=== PATIENT | male | born 1950 | race Caucasian/White ===

== ENCOUNTER 2023-04-02 05:54 | Emergency (ER) | payer MEDICARE, SELFPAY ==
[2023-04-02 06:01] VITALS: BP 171/87; PULSE 97; RESP 22; TEMP 37.2; O2SAT 95; BMI 29.4
--- NOTE | 2023-04-02 06:24 | PC.NURSE ---
pt complains of fever, headache and bodyaches that started a few days ago. states he tried tylenol last night but doesnt know if it helped because he went to sleep. woke up this morning and temp was 101 at home
--- NOTE | 2023-04-02 06:25 | ED_ITS ---
HPI - General Adult General Chief complaint: Fever Stated complaint: HEADACHE, FEVER- HOT Time Seen by Provider: 04/02/23 06:14 History of Present Illness HPI narrative: patient states he felt ill last night. Headache at that time. Took tylenol for the HUTTON but not sure if it help because he fell asleep. This AM has body aches, sore neck, mild -mod headache. Decided to come in because he developed a fever. No cough or shortness of breath. No associated nausea or neck stiffness. Did not take any medication since last PM Related Data Home Medications Medication Instructions Recorded Confirmed aspirin 81 mg chewable tablet 81 mg PO DAILY 04/02/23 04/02/23 (Aspirin Childrens) atorvastatin 20 mg tablet 20 mg PO DAILY 04/02/23 04/02/23 doxazosin 2 mg tablet (Cardura) 2 mg PO DAILY 04/02/23 04/02/23 duloxetine 30 mg capsule,delayed 30 mg PO DAILY 04/02/23 04/02/23 release hydrochlorothiazide 12.5 mg tablet 12.5 mg PO DAILY 04/02/23 04/02/23 losartan 50 mg tablet 50 mg PO BID 04/02/23 04/02/23 metoprolol succinate 50 mg 50 mg PO DAILY 04/02/23 04/02/23 tablet,extended release 24 hr montelukast 10 mg tablet 10 mg PO DAILY 04/02/23 04/02/23 Allergies Allergy/AdvReac Type Severity Reaction Status Date / Time No Known Drug Allergies Allergy Verified 04/02/23 06:05 Review of Systems ROS Status of ROS 10 or more systems reviewed and unremarkable except as noted in history and below Constitutional Reports: fever PFSH PFSH Social History Smoking status: Former smoker Exam Constitutional Vital Signs - 24 hr 04/02/23 06:01 Temperature 99.0 F Pulse Rate [Monitor] 97 H Respiratory Rate 22 Blood Pressure [Right Arm] 171/87 H Pulse Oximetry 95 Common normals: no apparent distress, average body habitus, oriented x3, no limitations, healthy appearing and well nourished [facility] Common normals: normocephalic, head/scalp atraumatic and hearing grossly normal bilaterally Eye Common normals: PERRL, EOMs intact bilaterally and conjunctivae normal Respiratory Common normals: normal respiratory effort, no retractions, no use of accessory muscles and clear to auscultation bilaterally Cardio Common normals: no JVD, regular rate, regular rhythm, S1 normal heart sound and S2 normal heart sound GI Common normals: Normal to inspection, nondistended, normoactive bowel sounds present, soft to palpation and non-tender Extremity Common normals: normal to inspection and full ROM Neuro Common normals: oriented x3, CN's II-XII intact bilaterally, moves all extremities, no focal motor deficits and no sensory deficits noted Psych Common normals: mental status grossly normal Course Vital Signs Vital signs: Vital Signs Temperature 99.0 F 04/02/23 06:01 Pulse Rate 97 H 04/02/23 06:01 Respiratory Rate 22 04/02/23 06:01 Blood Pressure 171/87 H 04/02/23 06:01 Pulse Oximetry 95 04/02/23 06:01 Temperature 99.0 F 04/02/23 06:01 Pulse Rate 97 H 04/02/23 06:01 Respiratory Rate 22 04/02/23 06:01 Blood Pressure 171/87 H 04/02/23 06:01 Pulse Oximetry 95 04/02/23 06:01 Medical Decision Making MDM Narrative Medical decision making narrative: patient presents with URI symptoms. Clinically appears to have a viral infection. Workup initiated including Respiratory panel and diagnostic studies. Care transferred to Dr Griggs at change of shift Discharge Plan Discharge Chief Complaint: Fever Prescriptions / Home Meds: No Action losartan 50 mg tablet 50 mg PO BID atorvastatin 20 mg tablet 20 mg PO DAILY metoprolol succinate 50 mg tablet extended release 24 hr 50 mg PO DAILY montelukast 10 mg tablet 10 mg PO DAILY duloxetine 30 mg capsule,delayed release(DR/EC) 30 mg PO DAILY hydrochlorothiazide 12.5 mg tablet 12.5 mg PO DAILY doxazosin [Cardura] 2 mg tablet 2 mg PO DAILY aspirin [Aspirin Childrens] 81 mg tablet,chewable 81 mg PO DAILY Referrals: Physician,Non-Staff, MD [Primary Care Provider] - 1 week
--- NOTE | 2023-04-02 06:30 | CT_ITS ---
The [address] [address] Patient Name: ANGELIC RAMSEY MRN: [id number] date: 1950 Sex: M Assigned Patient Location: ED.MAIN Current Patient Location: ED.MAIN Accession/Order Number: [id number] Exam Date: 04/02/2023 06:40 Report Date: 04/02/2023 07:15 At the request of: ROBERTO CARVER Procedure: CT facial bones wo con EXAMINATION: CT facial bones wo con HISTORY: headache , sore neck, body aches COMPARISON: No relevant comparison available. TECHNIQUE: Axial, Coronal, and Sagittal CT images created without IV contrast. Dose reduction techniques were achieved by using automated exposure control and/or adjustment of mA and/or kV according to patient size and/or use of iterative reconstruction technique. FINDINGS: FACIAL BONES: No bony lesion or fracture. SINUSES: Mild mucosal thickening throughout majority of the paranasal sinuses. Obstruction of the left ostiomeatal complex. Mucocele/retention cysts within base of right maxillary sinus. No fluid levels to suggest acute sinusitis. NASAL FOSSA: No mass, fracture, or significant septal deviation. SKULL BASE: No mass or bone destruction. ORBITS: No visible mass, hematoma, edema or fracture. SALIVARY GLANDS: No mass. Unremarkable parotid and submandibular glands. OTHER: No lymphadenopathy. Unremarkable nasopharynx, oropharynx, and oral cavity. IMPRESSION: 1. Moderate chronic sinusitis. 2. No acute or specific findings to account for patient's symptoms. Electronically authenticated by: ARI WANG Date: 04/02/2023 07:15
--- NOTE | 2023-04-02 06:30 | XR_ITS ---
The [address] [address] Patient Name: ANGELIC RAMSEY MRN: [id number] date: 1950 Sex: M Assigned Patient Location: ED.MAIN Current Patient Location: ED.MAIN Accession/Order Number: [id number] Exam Date: 04/02/2023 06:40 Report Date: 04/02/2023 07:02 At the request of: ROBERTO CARVER Procedure: XR chest 1V EXAMINATION: XR chest 1V HISTORY: fever , body aches, headache, sore neck COMPARISON: XR chest 10/27/2022 FINDINGS: LUNGS: Underexpanded lungs with mild stranding opacities within lung bases. VASCULATURE: No increased pulmonary vasculature. PLEURA: No pneumothorax, effusion, or pleural thickening. CARDIAC: No cardiomegaly or cardiac silhouette abnormality. MEDIASTINUM: No visible mass or adenopathy. BONES: No fracture or visible bone lesion. OTHER: Negative. IMPRESSION: 1. Low lung volume examination with new mild bibasilar infiltrates or atelectasis. Electronically authenticated by: ARI WANG Date: 04/02/2023 07:02
[2023-04-02 06:54] LABS: Adenovirus NOT DETECTED (NOT DETECTE); Bordetella parapertussis NOT DETECTED (NOT DETECTE); Coronavirus 229E NOT DETECTED (NOT DETECTE); Coronavirus HKU1 NOT DETECTED (NOT DETECTE); Coronavirus NL63 NOT DETECTED (NOT DETECTE); Coronavirus OC43 NOT DETECTED (NOT DETECTE); Human Metapneumovirus NOT DETECTED (NOT DETECTE); Human Rhinovirus/Enterovirus NOT DETECTED (NOT DETECTE); Influenza A NOT DETECTED (NOT DETECTE); Influenza B NOT DETECTED (NOT DETECTE); Mycoplasma pneumoniae NOT DETECTED (NOT DETECTE); Parainfluenza Virus 1 NOT DETECTED (NOT DETECTE); Parainfluenza Virus 2 NOT DETECTED (NOT DETECTE); Parainfluenza Virus 3 NOT DETECTED (NOT DETECTE); Parainfluenza Virus 4 NOT DETECTED (NOT DETECTE); Respiratory Syncytial Virus NOT DETECTED (NOT DETECTE)
[2023-04-02 07:11] LABS: Basophils Percent Auto 0.5 % (0.2-2.0); Eosinophils Absolute Auto 0.1 10^3/uL (0.0-0.7); Eosinophils Percent Auto 0.8 % (0.9-7.0); Hematocrit 41.6 % (42.0-54.0); Immature Granulocytes Abs Auto 0.02 10^3/uL (0.00-0.03); Immature Granulocytes Pct Auto 0.3 % (0.0-0.5); Lymphocytes Absolute Auto 0.9 10^3/uL (1.2-3.8); Lymphocytes Percent Auto 11.5 % (20.5-60.0); Mean Corpuscular HGB Conc 33.7 g/dL (29.9-35.2); Mean Corpuscular Hemoglobin 30.4 pg (25.9-34.0); Mean Corpuscular Volume 90.2 fL (80.0-94.0); Mean Platelet Volume 10.4 fL (9.5-13.5); Monocytes Absolute Auto 0.9 10^3/uL (0.3-0.8); Monocytes Percent Auto 12.1 % (1.7-12.0); Neutrophils Absolute Auto 5.6 10^3/uL (1.4-6.5); Neutrophils Percent Auto 74.8 % (43.0-75.0); Platelet Count 222 10^3/uL (150-450); Red Blood Count 4.61 10^6/uL (4.70-6.10); Red Cell Distribution Width 13.4 % (11.0-15.0); White Blood Count 7.5 10^3/uL (4.0-11.0)
[2023-04-02 07:21] LABS: Alanine Aminotransferase 27 U/L (16-63); Albumin Globulin Ratio 1.1; Albumin Level 3.8 g/dL (3.4-5.0); Alkaline Phosphatase 84 U/L (46-116); Anion Gap 12.2; Aspartate Amino Transferase 20 U/L (15-37); BUN Creatinine Ratio 14.6; Bilirubin Total 0.6 mg/dL (0.2-1.0); Calcium 9.1 mg/dL (8.5-10.1); Carbon Dioxide 28.5 mmol/L (21.0-32.0); Chloride 98 mmol/L (98-107); Estimated GFR (African America >60 (>=60); Estimated GFR (Non-African Ame >60 (>=60); Globulin 3.6 g/dL; Glucose 116 mg/dL (74-106); Potassium 3.7 mmol/L (3.5-5.1); Sodium 135 mmol/L (136-145); Total Protein 7.4 g/dL (6.4-8.2)
[2023-04-02 07:51] LABS: Bilirubin Urine NEGATIVE (NEGATIVE); Blood Urine NEGATIVE (NEGATIVE); Clarity Urine CLEAR (CLEAR); Color Urine LT. YELLOW (YELLOW); Glucose Urine UA NEGATIVE (NEGATIVE); Ketones Urine NEGATIVE (NEGATIVE); Leukocyte Esterase Urine NEGATIVE (NEGATIVE); Nitrite Urine NEGATIVE (NEGATIVE); Protein Urine NEGATIVE (NEG/TRACE); Urobilinogen Urine 0.2 EU/dL (0.2-1.0)
[2023-04-02 07:54] LABS: Urine Microscopic Indicated NO
--- NOTE | 2023-04-02 07:57 | ED.GENADUL1 ---
HPI - General Adult General Chief complaint: Fever Stated complaint: HEADACHE, FEVER- HOT Time Seen by Provider: 04/02/23 06:14 Related Data Home Medications Medication Instructions Recorded Confirmed aspirin 81 mg chewable tablet 81 mg PO DAILY 04/02/23 04/02/23 (Aspirin Childrens) atorvastatin 20 mg tablet 20 mg PO DAILY 04/02/23 04/02/23 doxazosin 2 mg tablet (Cardura) 2 mg PO DAILY 04/02/23 04/02/23 duloxetine 30 mg capsule,delayed 30 mg PO DAILY 04/02/23 04/02/23 release hydrochlorothiazide 12.5 mg tablet 12.5 mg PO DAILY 04/02/23 04/02/23 losartan 50 mg tablet 50 mg PO BID 04/02/23 04/02/23 metoprolol succinate 50 mg 50 mg PO DAILY 04/02/23 04/02/23 tablet,extended release 24 hr montelukast 10 mg tablet 10 mg PO DAILY 04/02/23 04/02/23 Previous Rx's Medication Instructions Recorded ondansetron 4 mg disintegrating 4 mg PO Q4H PRN Nausea And 04/02/23 tablet Vomiting 48 hours #12 tabs Allergies Allergy/AdvReac Type Severity Reaction Status Date / Time No Known Drug Allergies Allergy Verified 04/02/23 06:05 [facility] Social History Smoking status: Former smoker Exam Constitutional Vital Signs - 24 hr 04/02/23 06:01 04/02/23 08:09 Temperature 99.0 F 100.8 F H Pulse Rate [Monitor] 97 H 89 Respiratory Rate 22 20 Blood Pressure [Right Arm] 171/87 H 159/83 H Pulse Oximetry 95 96 Oxygen Delivery Method Room Air Course Vital Signs Vital signs: Vital Signs Temperature 99.0 F 04/02/23 06:01 Pulse Rate 97 H 04/02/23 06:01 Respiratory Rate 22 04/02/23 06:01 Blood Pressure 171/87 H 04/02/23 06:01 Pulse Oximetry 95 04/02/23 06:01 Temperature 100.8 F H 04/02/23 08:09 Pulse Rate 89 04/02/23 08:09 Respiratory Rate 20 04/02/23 08:09 Blood Pressure 159/83 H 04/02/23 08:09 Pulse Oximetry 96 04/02/23 08:09 Oxygen Delivery Method Room Air 04/02/23 08:09 Medical Decision Making Medical Records Medical records narrative: CT shows moderate chronic sinusitis, no acute or specific findings to account for patient's symptoms. Patient chest x-ray shows no acute cardiopulmonary disease, no infiltrate, no effusion. If the CT report was given to the patient. Patient was initially seen and evaluated by Dr. Schmitz. Patient history, physical, and initial orders and tests were ordered and documented by Dr. Schmitz. I was to follow-up with results of patient's CT of the sinuses, chest x-ray, and this for the patient. Patient respiratory panel is positive for COVID. Education on treatment of [id number] medication was discussed with patient at bedside and on discharge paper. Patient will follow-up with PCP next week if needed. Patient is not hypoxic, patient looks well. Patient did have a fever, he was given Tylenol. no questions at discharge. Please see Dr. Schmitz's previous to presentation on HPI, review of systems and physical exam. Patient looks well at discharge. No respiratory distress, no nausea or vomiting, no headache, just sinus congestion. Lab Data Lab results reviewed: Yes I reviewed the patient's lab results Labs: Lab Results 04/02/23 04/02/23 Range/Units 06:39 06:51 WBC 7.5 (4.0-11.0) 10^3/uL RBC 4.61 L (4.70-6.10) 10^6/uL Hgb 14.0 (14.0-18.0) g/dL Hct 41.6 L (42.0-54.0) % MCV 90.2 (80.0-94.0) fL MCH 30.4 (25.9-34.0) pg MCHC 33.7 (29.9-35.2) g/dL RDW 13.4 (11.0-15.0) % Plt Count 222 (150-450) 10^3/uL MPV 10.4 (9.5-13.5) fL Neut % (Auto) 74.8 (43.0-75.0) % Lymph % (Auto) 11.5 L (20.5-60.0) % [place] % (Auto) 12.1 H (1.7-12.0) % Eos % (Auto) 0.8 L (0.9-7.0) % Baso % (Auto) 0.5 (0.2-2.0) % Neut # (Auto) 5.6 (1.4-6.5) 10^3/uL Lymph # (Auto) 0.9 L (1.2-3.8) 10^3/uL [place] # (Auto) 0.9 H (0.3-0.8) 10^3/uL Eos # (Auto) 0.1 (0.0-0.7) 10^3/uL Baso # (Auto) 0.0 (0.0-0.1) 10^3/uL Abs Immat Gran (auto) 0.02 (0.00-0.03) 10^3/uL Imm/Tot Granulo (auto) 0.3 (0.0-0.5) % Sodium 135 L (136-145) mmol/L Potassium 3.7 (3.5-5.1) mmol/L Chloride 98 (98-107) mmol/L Carbon Dioxide 28.5 (21.0-32.0) mmol/L Anion Gap 12.2 BUN 13.0 (7.0-18.0) mg/dL Creatinine 0.89 (0.70-1.30) mg/dL Est GFR ( Amer) >60 (>=60) Est GFR (Non-Af Amer) >60 (>=60) BUN/Creatinine Ratio 14.6 Glucose 116 H (74-106) mg/dL Calcium 9.1 (8.5-10.1) mg/dL Total Bilirubin 0.6 (0.2-1.0) mg/dL AST 20 (15-37) U/L ALT 27 (16-63) U/L Alkaline Phosphatase 84 (46-116) U/L Total Protein 7.4 (6.4-8.2) g/dL Albumin 3.8 (3.4-5.0) g/dL Globulin 3.6 g/dL Albumin/Globulin Ratio 1.1 Urine Color Lt. yellow (YELLOW) Urine Clarity Clear (CLEAR) Urine pH 7.0 (5.0-9.0) Ur Specific [place] 1.020 (1.005-1.025) Urine Protein Negative (NEG/TRACE) mg/dL Urine Glucose (UA) Negative (NEGATIVE) mg/dL Urine Ketones Negative (NEGATIVE) mg/dL Urine Occult Blood Negative (NEGATIVE) Urine Nitrite Negative (NEGATIVE) Urine Bilirubin Negative (NEGATIVE) Urine Urobilinogen 0.2 (0.2-1.0) EU/dL Ur Leukocyte Esterase Negative (NEGATIVE) Adenovirus (PCR) Not detected (NOT DETECTE) C. pneumoniae DNA (PCR) Not detected (NOT DETECTE) Coronavirus Type OC43 Not detected (NOT DETECTE) Coronavirus Type HKU1 Not detected (NOT DETECTE) Coronavirus Type 229E Not detected (NOT DETECTE) Coronavirus Type NL63 Not detected (NOT DETECTE) Human Metapneumovir PCR Not detected (NOT DETECTE) M. pneumoniae (PCR) Not detected (NOT DETECTE) Parainfluenza PCR Not detected (NOT DETECTE) Parainfluenza 2 (PCR) Not detected (NOT DETECTE) Parainfluenza 3 (PCR) Not detected (NOT DETECTE) Parainfluenza 4 (PCR) Not detected (NOT DETECTE) RSV (RT-PCR) Not detected (NOT DETECTE) Entero/Rhino (PCR) Not detected (NOT DETECTE) SARS-CoV-2 (PCR) Detected A (NOT DETECTE) Bordetella pertussis (PCR) Not detected (NOT DETECTE) B parapertussis DNA PCR Not detected (NOT DETECTE) Influenza Type A (PCR) Not detected (NOT DETECTE) Influenza Type B (PCR) Not detected (NOT DETECTE) Discharge Plan Discharge Chief Complaint: Fever Clinical Impression: COVID-19, Sinusitis Patient Disposition: Home, Self-Care Time of Disposition Decision: 08:57 Prescriptions / Home Meds: New ondansetron 4 mg tablet,disintegrating 4 mg PO Q4H PRN (Reason: Nausea And Vomiting) 2 Days Qty: 12 0RF No Action losartan 50 mg tablet 50 mg PO BID atorvastatin 20 mg tablet 20 mg PO DAILY metoprolol succinate 50 mg tablet extended release 24 hr 50 mg PO DAILY montelukast 10 mg tablet 10 mg PO DAILY duloxetine 30 mg capsule,delayed release(DR/EC) 30 mg PO DAILY hydrochlorothiazide 12.5 mg tablet 12.5 mg PO DAILY doxazosin [Cardura] 2 mg tablet 2 mg PO DAILY aspirin [Aspirin Childrens] 81 mg tablet,chewable 81 mg PO DAILY Instructions: Sinusitis (ED), COVID-19 (Coronavirus Disease 2019) (ED), Face Coverings (Masks) and COVID-19 (ED), Social Distancing Guidelines for COVID-19 (ED) Additional Instructions: You may use multiple lbvq-out-[id number] medications to help treat her symptoms, including DayQuil, NyQuil, Flonase, and Mucinex as needed. YOU may also use Tylenol and Motrin, alternating every four hours to help with body aches or pains if they exist. Use Zofran ODT 4 mg tablets to help increase fluid intake. Follow-up with your PCP if no improvement or other questions in 3-5 days. Return to the Emergency Room significant shortness of breath or any other acute concerns Stand Alone Forms: Portal Instructions Referrals: Physician,Non-Staff, MD [Primary Care Provider] - 1 week
[2023-04-02 08:09] VITALS: BP 159/83; PULSE 89; RESP 20; TEMP 38.2; O2SAT 96
[2023-04-02 08:41] LABS: SARS-CoV-2 DETECTED (NOT DETECTE)
[2023-04-02] MEDS: ACETAMINOPHEN 500 MG TABLET PO (08:53)
== END 2023-04-02 09:15 | disposition home or self-care (01) ==
PROVIDERS: Internal Medicine; Emergency Provider Emergency Medicine
DX: U07.1 COVID-19 (principal); J32.9 Chronic sinusitis, unspecified; Z87.891 Personal history of nicotine dependence; Z79.82 Long term (current) use of aspirin; Z79.899 Other long term (current) drug therapy
CPT/HCPCS: 0202U; 36415; 70486; 71045; 80053; 81003; 85025; 99285

== ENCOUNTER 2023-09-28 13:07 | Outpatient (OUT) | payer MEDICARE, SELFPAY ==
--- NOTE | 2023-09-28 13:27 | XR_ITS ---
The [address] [address] Patient Name: ANGELIC RAMSEY MRN: [id number] date: 1950 Sex: M Assigned Patient Location: [facility] Current Patient Location: Accession/Order Number: [id number] Exam Date: 09/28/2023 13:23 Report Date: 09/29/2023 01:40 At the request of: LUCIUS ZHENG Procedure: XR abdomen 1V EXAMINATION: XR abdomen 1V HISTORY: Kidney Stone N20.0 COMPARISON: XR KUB 07/28/2022 FINDINGS: KIDNEY/URETER - RIGHT: No visible renal or ureteral calcifications. KIDNEY/URETER - LEFT: 6 mm stone projecting over mid body of kidney similar to prior study. PELVIS: No visible ureteral calcifications. Any visible calcifications favor phleboliths. BOWEL: No abnormal dilation or deviation. BONES: No acute abnormality. OTHER: 10 x 5 mm oval, irregular metallic foreign body projecting between the spine and left kidney. XR/XR abdomen 1V IMPRESSION: 1. Grossly stable left nephrolithiasis. 2. New metallic foreign body projecting over left upper quadrant of uncertain etiology. Electronically authenticated by: ARI WANG Date: 09/29/2023 01:40
== END 2023-09-28 13:08 | disposition home or self-care (01) ==
LOC: RAD 13:08
PROVIDERS: Visit Provider Urology
DX: N20.0 Calculus of kidney (principal)
CPT/HCPCS: 74018

== ENCOUNTER 2024-09-25 12:03 | Outpatient (OUT) | payer MEDICARE, SELFPAY ==
--- NOTE | 2024-09-25 12:18 | XR_ITS ---
The [address] [address] Patient Name: ANGELIC RAMSEY MRN: [id number] date: 1950 Sex: M Assigned Patient Location: [facility] Current Patient Location: Accession/Order Number: [id number] Exam Date: 09/25/2024 12:22 Report Date: 09/26/2024 06:52 At the request of: LUCIUS ZHENG Procedure: XR abdomen 1V EXAMINATION: XR abdomen 1V HISTORY: Kidney stones COMPARISON: XR abdomen 09/28/2023 FINDINGS: KIDNEY/URETER - RIGHT: Tiny calcification projecting over inferior pole of right kidney. KIDNEY/URETER - LEFT: Stable small calcification projecting over left kidney. PELVIS: Stable left pelvic calcification favoring a phlebolith. BOWEL: No abnormal dilation or deviation. BONES: No acute abnormality. OTHER: Negative. No abnormal gaseous collections. XR/XR abdomen 1V IMPRESSION: 1. Grossly stable bilateral nephrolithiasis. Electronically authenticated by: ARI WANG Date: 09/26/2024 06:52
== END 2024-09-25 12:04 | disposition home or self-care (01) ==
LOC: LAB 12:05 → RAD 12:10
PROVIDERS: PCP Nurse Practitioner Family; Visit Provider Urology
DX: N20.0 Calculus of kidney (principal)
CPT/HCPCS: 74018

== ENCOUNTER 2025-09-18 12:15 | Outpatient (OUT) | payer MEDICARE, SELFPAY ==
--- OUTSIDE RECORDS SUMMARY | 2025-09-18 12:20 | XMS_ITS | CCD ---
Author Organization [facility] Care Team Providers Care Jute Bag Clipper Name Role Phone DAINA MANLEY G Primary Care Physician Unavailab le SINDHU, DAINA Primary Care Unavailable VIGESAA, HEATH Lantigua Referring Unavailable SINDHU, DAINA Primary Care Unavailable VIGESAA, HEATH Lantigua Referring Unavailable SINDHU, DAINA Primary Care Unavailable VIGESAA, HEATH Lantigua Referring Unavailable SINDHU, DAINA Primary Care Unavailable VIGESAA, HEATH Lantigua Referring Unavailable Sindhu DO, Daina Primary Care Provider OVI, DR TOBIAS Attending Unavailable TIMMIS, DR TOBIAS Consulting Unavailable TIMMIS, DR TOBIAS Admitting Unavailable JOYCE, DR LEYVA Primary Care Unavailable TIMMIS, DR TOBIAS Admitting Unavailable TIMMIS, DR TOBIAS Attending Unavailable TIMMIS, DR TOBIAS Consulting Unavailable JOYCE, DR LEYVA Primary Care Unavailable NORM, DR LUCIUS Moya Admitting Unavailable JOYCE, DR LEYVA Primary Care Unavailable NORM, DR LUCIUS Moya Attending Unavailable NORM, DR LUCIUS Moya Consulting Unavailable ZIEBBHASKAR, DR ARI Escalona Consulting Unavailable Trinh Hernandez Unavailable Pito Riley Unavailable Unavailable Sindhu DO, Daina G Primary Care Provider BALTAZAR SOOD Attending Unavailable Unavailable Primary Care Provider UnavailPito Santillan Unavailable Unavailable Dalia Morales MD Primary Care Provider Judith Massey NP Unavailable DAYSI MAY Admitting Unavailable DAYSI MAY Attending Unavailable JUDITH MASSEY Primary Care Unavailab le Sindhu DO, Daina G Unavailable Lucius CA Attending Unavailable SINDHU, DAINA Primary Care Unavailable SINDHU, DAINA Primary Care Unavailable Lucius CA Attending Unavailable SINDHU, DAINA Primary Care Unavailable Lucius CA Attending Unavailable Massey CLINICAL TRIALS MANAGER-JESUS, Judith Jarquin Primary Care Pro vider SindhuDaina johnson DO Unavailable STELLA LANE Attending Unavailable HACKENDAMON, NANCY Jarquin Attending Unavailab le KAMPFER, STELLA Attending Unavailable RUSHER, ARI Jarquin Attending Unavailable KAMPFER, STELLA Attending Unavailable MASSEY, JUDITH Jarquin Attending Unavailab le HACKENBURG, NANCY Jarquin Attending Unavailab le MASSEY, JUDITH Jarquin Attending Unavailab le MASSEY, JUDITH Jarquin Referring Unavailab le RUSHER, ARI Jarquin Attending Unavailable SWINEHART, NATHALIE Attending Unavailable RUSHER, ARI Jarquin Attending Unavailable RUSHER, ARI Jarquin Attending Unavailable Daina Manley DO Primary Care Provider [phone] JUDITH MASSEY Primary Care Unavailab GARTH Thomas Attending Unavailable MASSEY, JUDITH Jarquin Referring Unavailab le MASSEY, JUDITH Jarquin Primary Care Unavailab le WALDEMAREDILIAED Referring Unavailable MASSEY, JUDITH Jarquin Primary Care Unavailab le WALDEMAR, PIPER Referring Unavailable MASSEY, JUDITH Jarquin Primary Care Unavailab le DANIEL RIZZO Attending Unavailable MASSEY, JUDITH Jarquin Referring Unavailab le MASSEY, JUDITH Jarquin Primary Care Unavailab le Medications Current Medications MedicationDrug Class(es)DatesSig (Normalized)Sig (Original)[id number] 200 actuat albuterol 0.09 mg/actuat metered dose inhaler (4 sources)beta2-Adrenergic AgonistStart: 08-18-2025 End: 46-27-7070hzvk 2 puff(s) by inhalation every four hours for wheezing albuterol HFA (Ventolin HFA) 90 mcg/act inhaler Indications: Lower resp. tract infection Inhale 2 puffs every 4 (four) hours if needed for wheezing or shortness of breath 8 g 5 08/18/2025 08/18/2026 Activeamoxicillin 875 mg / clavulanate 125 mg oral tablet (17 sources)Penicillin-class AntibacterialStart: 02-16-2025 End: 07-36-1410ysjo 1 tablet by mouth in the morningamoxicillin-clavulanate (Augmentin) 875-125 MG tablet Indications: Acute non-recurrent sinusitis, un specified location Take 1 tablet (875 mg) by mouth in the morning and 1 tablet (875 mg) before bedtime. Do all this for 7 days. 14 tablet 02/16/2025 02/23/2025 ActiveStart: 12-05-2024 End: 28-32-5778mlbh 1 tablet by mouth in the morningamoxicillin-clavulanate (Augmentin) 875-125 MG tablet Indications: Acute non-recurrent maxillary sin usitis Take 1 tablet (875 mg) by mouth in the morning and 1 tablet (875 mg) before bedtime. Do all this for 7 days. 14 tablet 12/05/2024 12/12/2024 Active Start: 08-23-2024 End: 05-00-7420rwmh 1 tablet by mouth in the morningamoxicillin-clavulanate (Augmentin) 500-125 MG tablet Indications: Acute non-recurrent pansinusitisTake 1 tablet (500 mg) by mouth in the morning and 1 tablet (500 mg) before bedtime. Do all this for 7 days. 14 tablet 08/23/2024 08/30/2024 ActiveStart: 10-05-2023 amoxicillin-clavulanate 875 mg-125 mg Tab Refill(s) 0 Start Date: 10/05/23 Status: OrderedAmoxicillin-Pot Clavulanate 875-125 MG Oral for 7 Days Not-Taking Ascorbic Acid (20 sources)Vitamin CStart: 90-02-3577Wtfdwaa C 500 mg, Daily Start Date: 09/27/20 Status: Orderedtake 1 tablet by mouth in the morningascorbic acid (VITAMIN C) 500 mg tablet Take 1 tablet (500 mg total) by mouth in the morning. ActiveAscorbic Acid (vitamin C) 1000 MG tablet 1 (one) time each day at the same time. Activeascorbic acid (Vitamin C) 250 MG chewable tablet Chew 1 tablet (250 mg). 0 ActiveAspirin (20 sources)Platelet Aggregation Inhibitor, Nonsteroidal Anti-inflammatory Drug Start: 36-86-3785mcacthb 81 mg Start Date: 09/27/20 Status: Orderedtake 1 tablet by mouth in the morningaspirin 81 mg Take 1 tablet (81 mg total) by mouth in the morning. ActiveAspirin (ASPIR-LOW PO) Take by mouth. ActiveAspirin (ASPIR-LOW PO) Take by mouth. 0 Activeatorvastatin 20 mg oral tablet (20 sources)HMG-CoA Reductase InhibitorStart: 17-90-2935tdqd 1 tablet by mouth in the morningatorvastatin (Lipitor) 20 MG tablet Indications: Mixed hyperlipidemia Take 1 tablet (20 mg) by mouth in the morning. 90 tablet 3 04/16/2025 ActiveStart: 09-27-2020 End: 38-50-7345dmak 1 tablet by mouth once daily in the morningatorvastatin (Lipitor) 20 MG tablet Indications: Mixed hyperlipidemia take 1 tablet by mouth every morning 90 tablet 3 04/06/2024 Activeazithromycin 250 mg oral tablet (5 sources)Macrolide AntimicrobialStart: 08-18-2025 End: 11-01-4322sgby 2 tablets by mouth once daily, then take 1 tablet by mouth once dailyazithromycin (Zithromax) 250 MG tablet Indications: Lower resp. tract infection Take 2 tablets (500mg) by mouth Daily for 1 day, THEN 1 tablet (250 mg) Daily for 4 days. 6 tablet 08/18/2025 08/23/2025 ActiveAzithromycin 250 MG Oral for 5 Days Not-Takingcalcium carbonate 1250 mg / cholecalciferol 200 unt oral tablet (1 source)Vitamin Dtake 1 tablet by mouth once dailycalcium carbonate-vitamin D3 500 mg-5 mcg (200 unit) tablet Take 1 tablet by mouth once daily. 0 Active cetirizine hydrochloride 10 mg oral tablet (20 sources)Histamine-1 Receptor AntagonistStart: 09-22-2023 End: 91-09-2469rggkzhqene 10 mg Tab Refills(s) 0 Start Date: 10/05/23 Status: Orderedcholecalciferol 0.025 mg oral tablet (20 sources)Vitamin Dtake 1 tablet by mouth in the morningcholecalciferol 1,000 units tablet Take 1 tablet (1,000 Units total) by mouth in the morning. Active doxazosin 1 mg oral tablet (20 sources)alpha-Adrenergic BlockerStart: 05-24-2023 End: 60-88-5588twbn 1 tablet by mouth at bedtimedoxazosin (Cardura) 1 MG tablet Indications: Primary hypertension Take 1 tablet (1 mg) by mouth at bedtime 90 tablet 3 05/11/2025 05/11/2026 ActiveDoxazosin Mesylate 2 MG Oral for 30 Days ActiveDULoxetine 30 mg delayed release oral capsule (20 sources)Serotonin and Norepinephrine Reuptake InhibitorStart: 09-20-2023 End: 87-58-0478yeavcwnakj 30 mg oral delayed release capsule Refills(s) 0 Start Date: 10/05/23 Status: Orderedfluticasone propionate 0.05 mg/actuat metered dose nasal spray (20 sources)CorticosteroidStart: 24-80-8978hkhk 1 spray(s) nasal route once dailyfluticasone (Flonase) 50 MCG/ACT nasal spray Indications: Acute non- recurrent sinusitis, unspecified location Administer 1 spray into each nostril Daily 16 g 1 02/16/2025 Active End: 78-36-7869bbifdhmzpie (Flonase) 50 MCG/ACT nasal spray 1 (one) time each day at the same time. 02/16/2025 Discontinued (Reorder)hydroCHLOROthiazide 12.5 mg oral tablet (20 sources)Thiazide DiureticStart: 31-67-6499wbco 1 tablet by mouth in the morninghydroCHLOROthiazide (HYDRODiuril) 12.5 MG tablet Indications: Primary hypertension Take 1 tablet (12.5 mg) by mouth in the morning. 90 tablet 3 08/09/2025 ActiveStart: 08-10-2022 End: 64-57-9375vpme 1 tablet by mouth in the morninghydroCHLOROthiazide (HYDRODiuril) 12.5 MG tablet Indications: Primary hypertension Take 1 tablet (12 .5 mg) by mouth in the morning. 90 tablet 3 08/14/2024 ActivehydroCHLOROthiazide 25 mg / triamterene 37.5 mg oral tablet (1 source)Potassium-sparing Diuretic, Thiazide DiureticStart: 45-33-8512ovjw 1 tablet by mouth once dailyhydrochlorothiazide-triamterene 25 mg-37.5 mg Tab 1 tab(s), Oral, Daily Start Date: 09/27/20 Status:Orderedibuprofen 600 mg oral tablet (4 sources)Nonsteroidal Anti-inflammatory DrugStart: 14-15-5425uzfy 1 tablet by mouth every six hours for painibuprofen 600 mg tablet take 1 tablet by mouth every 6 hours for pain WITH TYLENOL 0 03/25/2023 Activeketoconazole 20 mg/ml medicated shampoo (2 sources)Azole AntifungalStart: 10-90-1544jmetpgnlkhvf (Nizoral) 2 % shampoo Indications: Seborrheic dermatitis Apply topically 2 (two) timesa week. 100 mL 3 07/15/2023 Activelosartan potassium 50 mg oral tablet (20 sources)Angiotensin 2 Receptor BlockerStart: 66-17-0575cjud 1 tablet by mouth once daily in the morninglosartan (Cozaar) 50 MG tablet Indications: Primary hypertension TAKE 1 TABLET BY MOUTH EVERY MORNING AND 1 TABLET AT BEDTIME 180 tablet 1 07/09/2025 ActiveStart: 27-23-4475pcsm 1 tablet by mouth once daily in the morning, then take 1 tablet by mouth once daily at bedtime losartan (Cozaar) 50 MG tablet Indications: Primary hypertension TAKE 1 TABLET BY MOUTH EVERY MORNING AND TAKE 1 TABLET BY MOUTH EVERY NIGHT AT BEDTIME 180 tablet 1 01/09/2025 ActiveStart: 10-05-2023 End: 60-84-5557lauk 1 tablet by mouth in the morninglosartan (Cozaar) 50 MG tablet Indications: Primary hypertension (CMS/HCC) Take 1 tablet (50 mg) bymouth in the morning and 1 tablet (50 mg) before bedtime. 180 tablet 1 06/16/2024 Activetake 1 tablet by mouth twice dailylosartan (Cozaar) 50 mg tablet Take 1 tablet (50 mg) by mouth 2 times a day. 0 Znwzcw40 hr metoprolol succinate 25 mg extended release oral tablet (20 sources)beta-Adrenergic BlockerStart: 62-16-9794cmct 1 tablet by mouth every other daymetoprolol succinate XL (Toprol-XL) 25 MG 24 hr tablet Indications: Primary hypertension TAKE 1 TABLET BY MOUTH EVERY OTHER DAY DO NOT CRUSH OR CHEW 45 tablet 1 06/04/2025 ActiveStart: 12-05-2024 End: 73-10-4500fxnu 1 tablet by mouth every other daymetoprolol succinate XL (Toprol-XL) 25 MG 24 hr tablet Indications: Primary hypertension Take 1 tablet (25 mg) by mouth every other day Do not crush or chew. 45 tablet 1 12/05/2024 ActiveStart: 05-15-2024 End: 26-15-3196scjj 1 tablet by mouth once dailymetoprolol succinate XL (Toprol- XL) 25 MG 24 hr tablet Indications: Primary hypertension (CMS/HCC) Take 1 tablet (25 mg) by mouth Daily Do not crush or chew. 90 tablet 05/15/2024 07/27/2024 DiscontinuedStart: 47-31-0913mhwe 1 tablet by mouth once dailymetoprolol 50 mg ER Tab 50 mg = 1 tab(s), Oral, Daily Start Date: 09/27/20 Status: Orderedtake 0.5 tablet by mouth every other daymetoprolol succinate XL (TOPROL-XL) 50 mg 24 hr tablet Take 0.5 tablets (25 mg total) by mouth every other day. Active End: 57-44-8898haixbtvoty tartrate (Lopressor) 25 MG tablet Take 12.5 mg by mouth every other day 12/05/2024 Discontinuedtake 1 tablet by mouth every twenty-four hours in the morningmetoprolol succinate XL (TOPROL-XL) 50 mg 24 hr tablet Take 1 tablet (50 mg total) by mouth in the morning. Activemontelukast 10 mg oral tablet (20 sources)Leukotriene Receptor AntagonistStart: 09-27-2020 End: 07-93-7706blzc 1 tablet by mouth at bedtimemontelukast (Singulair) 10 MG tablet Indications: Allergic conjunctivitis of both eyes and rhinitisTake 1 tablet (10 mg) by mouth at bedtime 90 tablet 1 05/04/2025 ActiveMulti Vitamins oral tablet (5 sources)Start: 38-66-8340Qzpps Vitamins oral tablet Oral, Daily Start Date: 09/27/20 Status: OrderedMultiple Vitamin (Multi Vitamin) tablet (20 sources)Multiple Vitamin (Multi Vitamin) tablet 1 (one) time each day at the same time. ActiveMultiple Vitamin (Multi Vitamin) tablet 1 (one) time each day at the same time. 0 ActiveMULTIVITAMIN ORAL (9 sources)take 1 tablet by mouth in the morningMULTIVITAMIN ORAL Take 1 tablet by mouth in the morning. Activeondansetron 4 mg disintegrating oral tablet (3 sources)Serotonin-3 Receptor AntagonistStart: 53-44-3275icobpdelwmu ODT (Zofran-ODT) 4 MG disintegrating tablet dissolve 1 tablet ON TONGUE every 4 hours if needed for nausea OR vomiting for up to 2 days 0 04/02/2023 Active predniSONE 20 mg oral tablet (4 sources)Start: 08-18-2025 End: 33-16-0472miwm 1 tablet by mouth once dailypredniSONE (Deltasone) 20 MG tablet Indications: Lower resp. tract infection Take 1 tablet (20 mg) by mouth Daily for 10 days 10 tablet 08/18/2025 08/28/2025 Activetamsulosin hydrochloride 0.4 mg oral capsule (20 sources)alpha-Adrenergic BlockerStart: 12-25-2022 End: 43-17-1810svwb 1 capsule by mouth once dailyFLOMAX 0.4 mg capsule Take 1 capsule (0.4 mg total) by mouth nightly. 10/13/2023 ActiveStart: 82-78-5291lqqu 1 capsule by mouth every twenty-four hours in the morningtamsulosin (Flomax) 0.4 MG 24 hr capsule Take 0.4 mg by mouth in the morning. 12/25/2022 ActiveStart: 78-78-6104zkay 1 capsule by mouth once dailytamsulosin 0.4 mg Cap 0.4 mg = 1 cap(s), Oral, Daily, # 30 cap(s), Refills(s) 11, Pharmacy: [address], 187, cm, 08/01/21 9:11:00 EDT, Height/Length Dosing, 95, kg, 08/01/21 9:11:00 EDT, Weight Dosing Start Date: 01/22/22 Status: OrderedTheraLith XR (1 source)Start: 04-18-6507PttxsUwyz XR Oral Start Date: 09/27/20 Status: Ordered 24 hr venlafaxine 37.5 mg extended release oral tablet (5 sources)Serotonin and Norepinephrine Reuptake InhibitorStart: 63-40-9730zctl 1 tablet by mouth every twenty-four hours in the morningvenlafaxine XR (Effexor XR) 37.5 MG 24 hr tablet Take 37.5 mg by mouth in the morning. Take with food.. 0 10/15/2022 ActiveStart: 77-15-0000qvjj 1 tablet by mouth every twenty-four hours in the morningvenlafaxine XR (Effexor XR) 150 MG 24 hr tablet Take 150 mg by mouth in the morning. Take with food.. 0 05/05/2022 ActiveStart: 09-27-2020 venlafaxine 225 mg, Oral Start Date: 09/27/20 Status: OrderedVitamin D3 (5 sources)Start: 49-92-8448Qwinyqb D3 1,000 International_Unit Start Date: 09/27/20 Status: Ordered Completed/Discontinued Medications MedicationDrug Class(es)DatesSig (Normalized)Sig (Original)ciprofloxacin 500 mg oral tablet (2 sources)Quinolone AntimicrobialStart: 28-18-3299Nynsc 500 mg Tab 500 mg = 1 tab(s), Oral, As Directed, Patient to take 1 tab the day before procedure and the 2nd tab the day of procedure once completed, # 2 tab(s), Refills(s) 0, Pharmacy: [facility] [id number], 187, cm, 10/03/24 9:26:00 EST, Height/Length Dosing, 116, kg, 10/03/24 9:26:00 EST, Weight Dosing Start Date: 10/03/24 Status: Ordered Problems Active Problems Problem ClassificationProblemDateDocumented DateEpisodic/ChronicAcute cerebrovascular disease (20 sources)Infarction of basal ganglia; Translations: [Other cerebral infarction due to occlusion or stenosis of small artery]Onset: 01-13-2024 90-29-7247YkjjxbwZrigzc; peripheral; and visceral artery aneurysms (3 sources)Aneurysm of ascending aorta; Translations: [Aneurysm of ascending aorta without rupture (CMS-HCC)]71-51-0178KhhzfujUsffszj tract disease (5 sources)Ucxdnsdyj70-60-2352LuzruurfGapfaaiei of lipid metabolism (20 sources)Mixed hyperlipidemia; Translations: [Mixed hyperlipidemia]Onset: 19-33-3238IddxqofPeoqiwsrpiuuqq and diverticulitis (20 sources)Diverticular disease; Translations: [Diverticulosis of intestine, part unspecified, without perforation or abscess without bleeding]Onset: 589116-28-5428PsowiovDorkmnjsa hypertension (20 sources)Hypertensive disorder; Translations: [Essential (primary) hypertension]Onset: 364096-41-0290DetkearYusco of unknown origin (2 sources)Fever; Translations: [Fever, unspecified]00-92-5486Xuvoqasu Hyperplasia of prostate (20 sources)Benign prostatic hypertrophy with outflow obstruction; Translations: [Benign prostatic hyperplasia with lower urinary tract symptoms]Onset: 79-38-9253SvxbbfhEwyohwpkiibl; infection of eye (except that caused by tuberculosis or sexually transmitteddisease) (1 source)Allergic conjunctivitis; Translations: [Acute atopic conjunctivitis, bilateral]07-79-2930OfddnsgiKkxg disorders (20 sources)Depressive disorder; Translations: [Major depression in partial remission]Onset: 957330-25-2640KvgrkenBtwiefv (5 sources)Onychomycosis due to dermatophyte ; Translations: [Tinea unguium] 50-69-1364DbcdfkqjIccvt acquired deformities (2 sources)Acquired deformity of nose; Translations: [Acquired deformity of nose]Onset: 52-41-1399IvckspykTblzj acquired deformities (2 sources)Incompetence of nasal valve; Translations: [Acquired deformity of nose]Onset: 154991-43-7207YcucmadvLbhey aftercare (1 source)terminal supervisor (current) use of aspirin; Translations: [LONGTERM CURRENT USE OF ASPIRIN]Onset: 82-80-2970WqpeisziVmfbh aftercare (2 sources)Removal of sutures done; Translations: [Encounter for removal of sutures]32-56-6501JlniozqsHyabi circulatory disease (20 sources)Disorder of aorta; Translations: [Other specified disorders of arteries and arterioles]Onset: 555824-46-0469PgwivrfClopc circulatory disease (1 source)Other specified disorders of arteries and arterioles; Translations: [Other specified disorders of arteries and arterioles]Onset: 92-35-4133Cifvydr Other connective tissue disease (1 source)Pain in hallux; Translations: [Pain in left toe(s)]32-73-0655Atkkbipc Other connective tissue disease (10 sources)Pain in toe; Translations: [Pain in right toe(s)]94-23-0278Ixzcsxun Other diseases of kidney and ureters (1 source)Urinary tract obstruction; Translations: [Other obstructive and reflux uropathy]Onset: 87-48-2902InpnwzypUcpcs ear and sense organ disorders (20 sources)Asymmetrical hearing loss; Translations: [Other specified hearing loss, bilateral]Onset: 186999-93-3034BpjhjbtZlkdi ear and sense organ disorders (20 sources)Chronic otitis externa; Translations: [Unspecified chronic otitis externa, unspecified ear]Onset: 138752-63-5244CdweyiaJdcuv ear and sense organ disorders (20 sources)Sensorineural hearing loss, bilateral; Translations: [Sensorineural hearing loss, bilateral]Onset: 962205-46-2156GiqdcezWghiw lower respiratory disease (2 sources)Other abnormalities of breathing; Translations: [Other abnormalities of breathing]Onset: 15-40-0867UomgotgbOdcrg lower respiratory disease (2 sources)Lower respiratory tract infection; Translations: [Unspecified acute lower respiratory infection]07-99-4794LsduqmtqIzqef nervous system disorders (20 sources)Difficulty walking; Translations: [Difficulty in walking, not elsewhere classified]Onset: 000565-78-2592SnpfdmaAptvz nervous system disorders (2 sources)Neuropathy of lower limb; Translations: [Unspecified mononeuropathy of bilateral lower limbs]Onset: 707949-04-9632VigibhqRhsby nervous system disorders (20 sources)Chronic pain; Translations: [Other chronic pain]Onset: 04-14-2023 83-43-5501YgwprxoRxzlt nervous system disorders (20 sources)Bilateral peripheral neuropathy of lower limbs; Translations: [Unspecified mononeuropathy of bilateral lower limbs]Onset: ChronicOther nutritional; endocrine; and metabolic disorders (20 sources)Obese class I; Translations: [Obesity, unspecified]Onset: 04-14-2023 51-06-0855IdhhujwBuvie skin disorders (1 source)Epidermal thickening, unspecified; Translations: [EPIDERMAL THICKENING UNSPECIFIED]Onset: 00-12-7220DozyjbsrRegur skin disorders (1 source)Ingrowing nail; Translations: [Ingrowing nail]10-66-3487FhwxodayTqlwf skin disorders (5 sources)Dystrophia unguium; Translations: [Nail dystrophy]44-97-0880Jaysbyvj Other upper respiratory disease (20 sources)Allergic rhinitis; Translations: [Allergic rhinitis, unspecified] Onset: 836784-18-8317KjlqglqDppjh upper respiratory disease (2 sources)Deviated nasal septum; Translations: [Deviated nasal septum]Onset: 51-30-7014MklcidtgWqdev upper respiratory disease (2 sources)Hypertrophy of nasal turbinates; Translations: [Hypertrophy of nasal turbinates]Onset: 86-27-6562CfccyqxzXjsur upper respiratory infections (20 sources)Chronic pansinusitis; Translations: [Chronic pansinusitis]Onset: 559283-62-4948UnzgigsZoihc upper respiratory infections (13 sources)Acute upper respiratory infection, unspecified; Translations: [Acute pansinusitis]EpisodicPeripheral and visceral atherosclerosis (20 sources)Disorder of capillaries; Translations: [Peripheral vascular disease, unspecified]Onset: 697761-50-4394MjhgcodWjidpiwz codes; unclassified (2 sources)Sleep apnea, unspecified; Translations: [Sleep apnea, unspecified] Onset: 25-36-1391NkixosvHdpykeaw codes; unclassified (3 sources)Sleep apnea; Translations: [Sleep apnea, unspecified]ChronicResidual codes; unclassified (1 source)Obstructive sleep apnea (adult) (pediatric); Translations: [OBSTRUCTIVE SLEEP APNEA]Onset: 67-41-2577HnwxcquDqpatzdn codes; unclassified (20 sources)Obstructive sleep apnea syndrome; Translations: [Obstructive sleep apnea (adult) (pediatric)]Onset: 968356-16-0401CdzrcbySsncgfag codes; unclassified (5 sources)Pipe -78-9171DfswzwezCdzmjxek codes; unclassified (2 sources)Family history of ischemic heart disease and other diseases of the circulatory system; Translations: [Family history of ischemic heart disease and other diseases of the circulatory system]Onset: 38-63-8502QsjlqjkhSgdwqaqv codes; unclassified (3 sources)Family history of coronary arteriosclerosis; Translations: [Family history of ischemic heart disease and other diseases of the circulatory system] EpisodicSkin and subcutaneous tissue infections (1 source)Paronychia of toe of left foot; Translations: [Cellulitis of left toe] 66-51-2620DrrvxxtaHchsrtkmlje; intervertebral disc disorders; other back problems (20 sources)Lumbosacral spondylosis without myelopathy; Translations: [Spondylosis without myelopathy or radiculopathy, lumbosacral region]Onset: 360328-39-8009VtcbiwgFsskaqzcp-paosbmv disorders (20 sources)Nicotine dependence, other tobacco product, uncomplicated; Translations: [Pipe smoker]Onset: 430641-10-2653DbqklrgIeptlscmpdph (5 sources)Long-term current use of irqeuho04-75-7273Nuquwdabbgzh (1 source)CONTACT W/AND (SUSP) EXPOS COVID-19; Translations: [CONTACT W/AND (SUSP) EXPOS COVID-19]Onset: 91-49-8618Ivcjwpylqcga (4 sources)Patient encounter bhqgid66-91-0744Ewwxhfrphjvu (1 source)abn stress testOnset: 30-18-3935Kuevdzowbhmc (1 source)Aneurysm of the ascending aorta, without rupture; Translations: [Aneurysm of the ascending aorta, without rupture]Onset: 11-20-2024 Past or Other Problems Problem ClassificationProblemDateDocumented DateEpisodic/ChronicAdjustment disorders (20 sources)Family tension; Translations: [Reaction to severe stress, unspecified]Onset: 03-18-2017 Resolved: 867174-22-1985RbhyndsAxwrpxqe of urinary tract (20 sources)Kidney stone; Translations: [Calculus of kidney]Onset: 08-13-2016 EpisodicConditions associated with dizziness or vertigo (20 sources)Lightheadedness; Translations: [Dizziness and giddiness]Onset: 008148-34-7752RcyoikriQzmmqctr mellitus without complication (20 sources)Prediabetes; Translations: [Prediabetes]Onset: EpisodicDiseases of mouth; excluding dental (20 sources)Other lesions of oral mucosa; Translations: [Bleeding from mouth] Onset: 92-61-4848KkarrycfDqldpxrbzqvab symptoms and ill-defined conditions (20 sources)Nocturia; Translations: [Nocturia]Onset: 78-23-6467UakcmszyHakw wounds of extremities (1 source)Laceration without foreign body of left hand, initial encounter; Translations: [Laceration without foreign body of left hand, initial encounter] Onset: 11-07-3689CfrltehkLvqbq and unspecified benign neoplasm (20 sources)History of adenomatous polyp of colon; Translations: [Personal history of colonic polyps]Onset: [id number] circulatory disease (20 sources)Orthostatic hypotension; Translations: [Orthostatic hypotension] Onset: 649362-53-7285VvhufbvbFqwes connective tissue disease (20 sources)Disorder of ankle; Translations: [Other symptoms and signs involving the musculoskeletal system]Onset: 717829-88-8690FuvrclhsEwgao connective tissue disease (20 sources)Pain in both feet; Translations: [Pain in right foot]Onset: 569847-62-8838MzpvpxwiClaft diseases of kidney and ureters (20 sources)Cyst of kidney; Translations: [Cyst of kidney, acquired]Onset: 610497-00-8436PiajsjweYmjhw injuries and conditions due to external causes (2 sources)Laceration - injuryOnset: 82-64-3579XzalvhvnKhsyz lower respiratory disease (20 sources)Difficulty breathing; Translations: [Other abnormalities of breathing]Onset: 665432-14-5547MhukvnuwRauek lower respiratory disease (20 sources)Nodule of lung; Translations: [Solitary pulmonary nodule]Onset: 742298-82-9885XiwjftseJyqjo nervous system disorders (20 sources)Abnormal gait; Translations: [Unspecified abnormalities of gait and mobility]Onset: 597915-68-9025GigroabiNbydv nervous system disorders (20 sources)Skin sensation disturbance; Translations: [Unspecified disturbances of skin sensation]Onset: 925627-04-9662DagijyocGhhha nutritional; endocrine; and metabolic disorders (20 sources)Body mass index 25-29 - overweight; Translations: [Overweight]Onset: 04-14-2023 Resolved: 651924-58-1954CnjkqermFfmgk screening for suspected conditions (not mental disorders or infectious disease) (16 sources)Encounter for screening for malignant neoplasm of prostate; Translations: [Screening for malignant neoplasm done]Onset: 10-05-2023 Resolved: 36-38-3472QdzjcbkmIfcaq upper respiratory disease (20 sources)Deviated nasal septum; Translations: [Deviated nasal septum]Onset: 753404-87-2600CyyfbobzOdzss upper respiratory disease (20 sources)Hypertrophy of nasal turbinates; Translations: [Hypertrophy of nasal turbinates]Onset: 965000-86-9577NedjvctqPhqtwxzf codes; unclassified (20 sources)Dependence on continuous positive airway pressure ventilation; Translations: [Dependence on other enabling machines and devices]Onset: 04-14-2023 Resolved: 460295-91-3860ShwqmviElxapxkfygg; intervertebral disc disorders; other back problems (20 sources)Acute back pain with sciatica; Translations: [Lumbago with sciatica, unspecified side]Onset: 04-14-2023 Resolved: 585727-69-0604CkaizlvmJdoezlqelhhg (1 source)History of COVID-19 Z86.16Unclassified (1 source)Onset: 941140-23-2366 Results Test NameValueInterpretationReference RangeFacilityPOCT EKGon 08-27-2025 [facility] SystemLaboratory - Microbiology and Antimicrobial susceptibilityon [id number]-CoV-2 (COVID-19) RNA LINNETTE+probe Ql (Unsp spec) NegativeNOWI HealthcareNo Panel Informationon [id number] ANegativeNOMS HealthcareFLU BNegativeNOWI HealthcareNOWI HealthcareCT CHEST W IV CONTRASTon [id number] CHEST W IV CONTRASTEXAM: CT Chest With IV Contrast. REASON FOR EXAM: History of lung nodule, history of smoking. COMPARISON: None TECHNIQUE: Multiplanar images of the chest were obtained. 100 cc of Isovue-300 IV without reported complication. FINDINGS: Lower neck: Calcified benign thyroid nodule. No follow-up recommended. Mediastinum: No adenopathy or fluid collection. Heart is not enlarged. No pericardial thickening. Calcified bilateral hilar lymph nodes. Aorta: Atherosclerosis of the aorta and branch vessels. Aorta measures 4.2 cm in dimension transverse. Heart upper limits normal for size. No pericardial thickening. Pulmonary vasculature: No acute findings by CT. Lungs: Peripheral right-sided subpleural 2 mm noncalcified pulmonary nodule. Calcified nodule in the inferior aspect of the lingula measuring 6.4 mm. Pleural surface: No effusion, pneumothorax, thickening. Regional soft tissues/osseous structures: Bilateral gynecomastia. Osseous structures without acute change. Thoracic spondylosis. Upper abdomen: Hypodensities both kidneys 12 Hounsfield units on the left measuring 4.7 x 3.8 cm. 15 to 20 Hounsfield units on the right 1.8 cm. Calcified gallstones. IMPRESSION: 1. 2 mm right upper lobe pulmonary nodule. Follow-up typically not recommended unless there is a high risk patient. 12-month CT follow-up optional. 2. Previous granulomatous exposure. 3. Ectasia of the thoracic aorta. 4. Cholelithiasis. 5. Bilateral renal cysts. Slightly complex. Bosniak 2F. Recommend follow-up ultrasound in 6 to 12 months depending on clinical suspicion. *This report is generated using voice recognition reporting (FittingRoom). On occasion BladeLogic[employer] erroneously drops words from the report or replaces the spoken word with similar sounding words. Please call with any questions/concerns regarding this report.* Dictated and transcribed 04/12/25/dpd This report has been electronically signed and approved by the interpreting radiologist. All CT scans at this institution are performed using dose optimization techniques as appropriate for the performed exam including the following: Automated exposure control Adjustment of the mA and/or kV according to patient size Use of iterative reconstruction techniqueNormalNot AvailableComment on above: Order Comment: LUNG NODULELaboratory - Microbiology and Antimicrobial susceptibilityon [id number]-CoV-2 (COVID-19) RNA LINNETTE+probe Ql (Unsp spec)- NOMS HealthcareNo Panel Informationon [id number] A-NOMS HealthcareFLU B-NOMS HealthcareInterpretation and review of laboratory resultsNormalNOMS [facility] NOMS HealthcareCT CTA CHESTon [id number] CTA CHESTCT CTA CHEST CLINICAL INFORMATION: Aortic aneurysm. COMPARISON: None TECHNIQUE: Nonionic contrast injected intravenously without reported complication. Thin section axial images of the thorax obtained with multiplanar reformatted 3-D MIP images of the thorax generated under concurrent physician supervision and reviewed. Automatic exposure control (AEC) was utilized. FINDINGS: CARDIOVASCULAR: Aorta: See measurements as below. Measurements likely confounded by suboptimal gating with pulsation artifact. No significant calcified plaque. No dissection flap.. Ascending aorta, mid: 4.5 x 4.4 cm. Proximal arch (proximal to brachiocephalic artery): 3.9 x 4.4 cm. Mid arch: 3.3 x 3.5 cm. Distal arch (distal to left subclavian artery): 2.9 x 3.2 cm. Mid-descendin.5 x 2.9 cm. Arch vessels: Widely patent. Pulmonary arteries: Normal in caliber. No visualized pulmonary arterial filling defect. Coronary arteries: Moderate calcification HEART: Mildly enlarged. No pericardial effusion. NONVASCULAR: LUNG/PLEURA: No focal consolidation, effusion, or pneumothorax. Calcified lingula granuloma. A 3 mm noncalcifiedsubpleural right middle lobe nodule (52/125). Mild dependent atelectasis. MEDIASTINUM and LYMPH NODES: Nondilated esophagus. No enlarged nodes. UPPER ABDOMEN: Probable flash filling hemangioma in segment 3. Cholelithiasis. Large bowel diverticulosis. Partially imaged simple renal cysts which do not necessarily require dedicated follow-up. . MUSCULOSKELETAL AND LOWER NECK Single calcification in the posterior left thyroid. No acute osseous abnormality. Gynecomastia IMPRESSION: 1. Ascending aortic aneurysm as measured above (likely confounded by mild pulsation artifact). 2. A 3 mm right middle lobe nodule. Consider one-year follow-up based on smoking history/risk factors. All CT scans at this facility use dose modulation, iterative reconstruction, and/or weight based dosing when appropriate to reduce radiation dose to as low as reasonably achievable. Finalized by Pierre Weems MD on 11/28/2024 11:23 AMNormalProMedica Fairmont Rehabilitation And Wellness CenterAmbulatory Visit Summaryon [id number] Visit SummaryAmbulatory Visit Summary ANGEL RODRIGUEZ :1950 Visit Date:11/20/2024 Ambulatory Visit Instructions Your Diagnosis BPH with urinary obstruction Incomplete bladder emptying Kidney stones Your Care Team Attending Physician - Lucius CA MD Primary Care Physician - DAINA MANLEY DO This Is Your Medications List ciprofloxacin (Cipro 500 mg Tab) tamsulosin (Flomax 0.4 mg Cap) Contact prescribing physician if questions or concerns ascorbic acid (Vitamin C) aspirin atorvastatin (atorvastatin 20 mg Tab) cetirizine (cetirizine 10 mg Tab) cholecalciferol (Vitamin D3) doxazosin (doxazosin 1 mg Tab) duloxetine (duloxetine 30 mg oral delayed release capsule) hydrochlorothiazide (hydrochlorothiazide 12.5 mg Tab) losartan (losartan 50 mg Tab) metoprolol (metoprolol 50 mg ER Tab) montelukast (montelukast 10 mg Tab) multivitamin (Multi Vitamins oral tablet) Procedures Performed Cystoscopy (11/20/2024), ESWL of kidney (07/17/2021), Colonoscopy, Procedure on upper arm. Discharge Vitals Heart Rate (Peripheral) 84 Respiratory Rate 16 Blood Pressure 120/88 Height 187 cm Height 74 in Weight 116 kg Weight 255.736 lb BMI 33.17 What to do next Scheduled Follow-Up Appointments Wednesday 10:00 AM EST With: Lucius CA MD Where: [facility] [address] [place] [address]- You Need to Schedule the Following Appointments Follow Up with Lucius CA MD, URL When: Where: [address] [place] [address] [place] [address]- Medications What How Much When Instructions Unchanged ciprofloxacin (Cipro 500 mg Tab) 1 Tablets By Mouth As Directed Patient to take 1 tab theday before procedure and the 2nd tab the day of procedure once completed Unchanged tamsulosin (Flomax 0.4 mg Cap) 1 Capsules By Mouth Every day Duration: 90 Days Unchanged ascorbic acid (Vitamin C) 500 Milligram Every day Contact prescribing physician if questions or concerns Unchanged aspirin 81 Milligram Contact prescribing physician if questions or concerns Unchanged atorvastatin (atorvastatin 20 mg Tab) 1 Tablets By Mouth Every day Contact prescribing physician if questions or concerns Unchanged cetirizine (cetirizine 10 mg Tab) Contact prescribing physician if questions or concerns Unchanged cholecalciferol (Vitamin D3) 1,000 International unit Contact prescribing physician if questions or concerns Unchanged doxazosin (doxazosin 1 mg Tab) Contact prescribing physician if questions or concerns Unchanged duloxetine (duloxetine 30 mg oral delayed release capsule) Contact prescribing physician if questions or concerns Unchanged hydrochlorothiazide (hydrochlorothiazide 12.5 mg Tab) Contact prescribing physician if questions or concerns Unchanged losartan (losartan 50 mg Tab) Contact prescribing physician if questions or concerns Unchanged metoprolol (metoprolol 50 mg ER Tab) 1 Tablets By Mouth Every day Contact prescribing physician if questions or concerns Unchanged montelukast (montelukast 10 mg Tab) 1 Tablets By Mouth Every day Contact prescribing physician if questions or concerns Unchanged multivitamin (Multi Vitamins oral tablet) By Mouth Every day Contact prescribing physician if questions or concerns Medications and Immunizations Administered Given lidocaine Top 2% Gel w/Appl 6 mL, 6 mL, Topical. For: BPH with urinary obstruction Allergies No Known Allergies Problems Ongoing - Any problem that you are currently receiving treatment for. Aspirin long-term use BMI 27.0-27.9,adult BPH with urinary obstruction Depression Gall stones Hypertension Incomplete bladder emptying Kidney stones Pipe smoker Screening PSA (prostate specific antigen) Patient Survey You may receive a survey via text or e-mail asking about your office visit. Please share your experience with us by completing your survey. We appreciate your feedback and thank you for choosing us for your care. Education Materials Benign Prostatic Hyperplasia Benign prostatic hyperplasia (BPH) is an enlarged prostate gland that is caused by the normal agingprocess. The prostate may get bigger as a man gets older. The condition is not caused by cancer. The prostate is a walnut-sized gland that is involved in the production of semen. It is located in front of the rectum and below the bladder. The bladder stores urine. The urethra carries stored urine ou t of the body. An enlarged prostate can press on the urethra. This can make it harder to pass urine. The buildup of urine in the bladder can cause infection. Back pressure and infection may progress to bladder damage and kidney (renal) failure. What are the causes? This condition is part of the normal aging process. However, not all men develop problems from thiscondition. If the prostate enlarges away from the (more content not included)...NormalFisher Mercy Medical CenterCREATININEon 11-20-2024 Creatinine [Mass/Vol]0.95 mg/dLNormal0.60-1.30ProMethodist Dallas Medical CenterComment on above:Result Comment: METHOD TRACEABLE TO IDMS STANDARDPerformed By: #### DOCUMENTATION ENGINEER #### [facility] ([id number]) [address] [place] [address], [address] [place], [place] [address]UNM/1.73 sq M.predicted among non-blacks MDRD (S/P/Bld) [Vol rate/Area]85 mL/min/{1.73_m2}Normal>59ProMethodist Dallas Medical CenterComment on above:Result Comment: Reported eGFR is based on the CKD-EPI 2020 equation that does not use a race coefficient.Performed By: #### DOCUMENTATION ENGINEER #### [facility] ([id number]) [address] [place] [address], [address] [place], [place] [address]Lbutrrr Office/Clinic Noteon [id number] Office/Clinic NoteUrology Office/Clinic Note Chief Complaint Cysto HPI Staff Cysto ABX TAKEN History of Present Illness Tests reviewed: I have reviewed the previous health record information and history for this patient from Dr. Ca. I have reviewed and verified the staff HPI to be accurate for this encounter. Review of Systems PHQ Score Initial Depression Screen Score: 0 SCORE ROS - Provider Constitutional: denies weight loss, denies hot flashes. Eyes: denies eye problems. Gastrointestinal: denies nausea, denies vomiting. Cardiovascular: denies chest pain or angina. Integumentary: no dryness Musculoskeletal: denies musculoskeletal symptoms. ENMT: denies otolaryngeal symptoms. Respiratory: no shortness of breath. Heme/Lymph: denies easy bleeding tendency, denies easy bruising tendency. Psychiatric: no confusion, no anxiety. Genitourinary: See HPI. Physical Exam Vitals & Measurements HR: 84(Peripheral) RR: 16 BP: 120/88 HT: 74 in HT: 187 cm WT: 116 kg WT: 255.736 lb BMI: 33.17 General Appearance: alert, no distress, well nourished, well developed male. Procedure Operative Information Anesthesia Type: Local Procedure: Local Cystoscopy Complications: None Surgical risks, benefits, details of the procedure have been explained to the patient. Full informed consent has been obtained. Intraoperative Information Prepped: Patient is brought back to the endoscopy suite. Patient is placed in supine position. Patient prepped in the usual fashion with Betadine solution. 2% Xylocaine Jelly is placed per Urethra. After waiting several minutes, the Cystoscope is introduced. The Urethra is: Normal, no stricture. The Prostatic Urethra is: ~ 4 cm long prostate, lateral lobe hypertrophy, no median lobe. The Bladder: _No tumors or stones, Trabeculated: Moderate (2) The Ureteral orifices: Show efflux of clear urine Specimens Removed: None Removal: Cystoscope is removed. The patient tolerated it well. Postoperative Information Patient is discharged home with antibiotic coverage. Follow up arranged. Assessment/Plan 1. BPH with urinary obstruction (N40.1: Benign prostatic hyperplasia with lower urinary tract symptoms) PCP monitoring PSA [1]. Pt had IO cysto wo complications today to eval candidacy for prostate procedures. Taking Flomax 0.4mg qd. Discussed operative interventions such as TURP, versus less invasive options such as Rezum or Urolift, depending on prostate size and shape. R/Bs of options discussed. Educational pamphlets pro vided. Would require cysto to eval candidacy for prostate procedures. Recommended urolift. Pt to call if he would like to schedule Urolift. The procedural risks, benefits, details, and treatment alternatives have been discussed with the patient. These include bleeding, infection, continuedproblems urinating, increased frequency with urgency during the healing process, painful urination,need for indwelling catheter after the procedure, and the need for additional procedures in the futu re, among others. The risk of penile erection problems and urinary leakage is less after this procedure than some others, but could still occur. Full informed consent has been obtained. Will order Local anesthesia. 2. Incomplete bladder emptying (R33.9: Retention of urine, unspecified) PVR (cc): 10/03/24 - 119 3. Kidney stones (N20.0: Calculus of kidney) KUB 07/28/22 - Stable L 5 mm stone. KUB 09/28/23 - 6 mm stone projecting over mid body of left kidney similar to prior study. KUB 07/26/24 [facility] - Tiny stone over RIP. Stable small stone L kidney. Follow up 07/2025 with KUB or sooner if needed. Pt understands and agrees with plan. Overall the patient tolerates cystoscopy well and continues on the low-dose doxazosin as well as tamsulosin 0.4 mg daily. I gave him the options including minimally invasive procedural intervention and gave him some literature again regarding the UroLift. He will think about this. He is already made a follow-up appointment for September 2025 with a repeat KUB. Follow-up With When Contact Information Lucius CA MD, URL [address] [address]- Additional Instructions: 07/2025 with KUB Patient Education Benign Prostatic Hyperplasia I, Kalyn Mejia, personally scribed for Dr. Ca on 11/20/2024 14:28:03. . Documentation recorded by the scribe, Kalyn Mejia, accurately reflects the services(s) I performed and decisions made by me. Authenticated by Dr. Ca on 11/20/2024 14:30:58. Portions of this record may have been created with voice recognition artificial intelligence software, specifically [employer], [employer] and or [employer]. Substitutions may have occurred due to the inherent limitations of voice recognition and artificial intelligence software. Problem List/Past Medical History Ongoing Aspirin long-term use BMI 27.0 (more content not included)...[facility]tering Health PrebleComment on above:Result Comment: Electronically Signed By: Lucius CA MD\.br\Date and Time Signed: 11/20/24 14:31 EST\.br\Electronically Co-Signed By: Kalyn Mejia\.br\Date and Time Co-Signed: 11/20/24 14:28 ESTUrology Office/Clinic Noteon [id number] Office/Clinic NoteUrology Office/Clinic Note Chief Complaint follow up KUB HPI Staff 1 year follow up w/[facility]UB-[facility]-09/25/24 Previous DX: BPH w/urinary obstruction, frequent urination, kidney stones, nocturia, ureteral stone. S/P ESWL 07/17/21. *Flomax 0.4mg qd [facility] 09/25/24 [facility] IPSS 23 PVR 119 Dysuria: declines Incomplete bladder emptying: yes Hematuria: declines Frequency: every 2 hours or less Urgency: yes Nocturia: 4 times Stream: weak with starting and stopping Leaking: declines Post void dripping: declines Wearing pads/ Depends: declines Urge incontinence: declines Stress incontinence: declines Incontinence without Sensory Awareness: declines Abdominal pain: declines Flank pain: declines Sexual complaints: declines History of Present Illness Tests reviewed: UA, KUB I have reviewed the previous health record information and history for this patient from Dr. Ca. I have reviewed and verified the staff HPI to be accurate for this encounter. Review of Systems PHQ Score Initial Depression Screen Score: 0 SCORE ROS - Provider Constitutional: denies weight loss, denies hot flashes. Eyes: denies eye problems. Gastrointestinal: denies nausea, denies vomiting. Cardiovascular: denies chest pain or angina. Integumentary: no dryness Musculoskeletal: denies musculoskeletal symptoms. ENMT: denies otolaryngeal symptoms. Respiratory: no shortness of breath. Heme/Lymph: denies easy bleeding tendency, denies easy bruising tendency. Psychiatric: no confusion, no anxiety. Genitourinary: See HPI. Physical Exam Vitals & Measurements RR: 17 BP: 124/84 HT: 74 in HT: 187 cm WT: 116 kg WT: 255.736 lb BMI: 33.17 General Appearance: alert, no distress, well nourished, well developed male. Assessment/Plan 1. BPH with urinary obstruction (N40.1: Benign prostatic hyperplasia with lower urinary tract symptoms) UA neg. IPSS 23 (16). Taking Flomax 0.4 mg qd. Also taking Doxazosin 1 mg qd through marketing campaign analyst. PCP monitoring PSA, per last note. Feels his urination is stable though his IPSS worsened. Used to have some dizziness/lightheadedness but improved after med adjustment of different med. Still taking both Flomax and Doxazosin, tolerating well wo SE. Shares his sxs are livable but he is tired of living with them. Discussed operative interventions such as TURP, versus less invasive options such as Rezum or Urolift, depending on prostate size and shape. R/Bs of options discussed. Educational pamphlets provided. Would require cysto to eval candidacy for prostate procedures. Pt elects Will schedule cysto. The risks and benefits for cystoscopy have been discussed. The risks include bleeding, infection, and irritation of the bladder and urinary channel, among others. The patient, after being informed of procedural details and after questions have been answered, wishes to proceed. Full informed consent has been obtained. Will order Local anesthesia. [facility] . 2. Kidney stones (N20.0: Calculus of kidney) KUB 07/28/22 - Stable L 5 mm stone. KUB 09/28/23 - 6 mm stone projecting over mid body of left kidney similar to prior study. KUB 07/26/24 [facility] - Tiny stone over RIP. Stable small stone L kidney. Reviewed imaging with pt, per report stones are stable so will cont to monitor. Follow up 1 yr with KUB or sooner if needed. Pt understands and agrees with plan. 3. Incomplete bladder emptying (R33.9: Retention of urine, unspecified) PVR 119 cc. Overall the patient feels that his urinary symptoms have increased a bit he could live with them but they are bothersome. Offered evaluation given the fact that he has been on alpha blockade and has continued symptomatology with the IPSS score of 23. I gave him some information regarding minimally invasive treatments and care pathways. Regarding his kidney stones a seem to be stable. 1 year follow-up with KUB in that regard. Antibiotic prophylaxis sent to pharmacy in preparation for cystoscopic evaluation Follow-up With When Contact Information NORM JEFFERS, Lucius P, URL [address] [place] [address]- Additional Instructions: sched cysto then 1 yr KUB Patient Education Benign Prostatic Hyperplasia Kalyn Holman, personally scribed for Dr. Ca on 10/03/2024 09:51:13. . Documentation recorded by the scribe, Kalyn Mejia, accurately reflects the services(s) I performed and decisions made by me. Authenticated by Dr. Ca on 10/03/2024 09:53:15. Portions of this record may have been created with voice recognition artificial intelligence software, specifically [employer], [employer] and or [employer]. Substitutions may have occurred due to the inherent limitations of voice recognition and artificial intelligence software. Problem List/Past Medical History Ongoing Aspirin long-term use BMI 27.0-27.9,adult BPH (more content not included)...[facility] PrebleComment on above:Result Comment: Electronically Signed By: Lucius CA MD P\.br\Date and Time Signed: 10/03/24 09:54 EST\.br\Electronically Co-Signed By: Kalyn Mejia P\.br\Date and Time Co-Signed: 10/03/24 09:51 ESTCT MAXILLOFACIAL W/O CONTRAST on 10-28-2023 Exam Date/Time: 10/28/2023 08:48 EST Reason for Exam: J32.4 Report IMPRESSION: RIGHT MAXILLARY RETENTION CYST. CT MAXILLOFACIAL WITHOUT INTRAVENOUS CONTRAST MEDIUM. History: Chronic sinus infection.. Technical factors: CT maxillofacial was obtained and formatted as 1 mm contiguous axial images. Sagittal and coronal reconstruction obtained during postprocessing. Comparison: None. Findings: Bilateral frontal, sphenoid, ethmoid, and left maxillary sinuses are patent Rounded soft tissue attenuation visualized base right maxillary sinus. Radiopaque cutaneous marker overlies right zygomatic maxillary junction. Nasal septum midline. Ostiomeatal complexes patent bilaterally. Mastoid air cells well pneumatized bilaterally. Bilateral ocular globes, extraocular muscles, optic nerves, retrobulbar fat without anomaly. All CT scans at this facility use dose modulation, iterative reconstruction, and/or weight based dosing when appropriate to reduce radiation dose to as low as reasonably achievable. Ordering Provider: Micheline Dior FINAL REPORT Dictated: 10/28/2023 10:49 am Karthik Mistry MD Signed (Electronic Signature): 10/28/2023 10:49 am Signed by: Karthik Mistry MD Transcribed by: MANSOOR Technologist: JULIANERadiology, Radiologist, - 10/28/2023 Exam Date/Time: 10/28/2023 08:48 EST Reason for Exam: J32.4 Report IMPRESSION: RIGHT MAXILLARY RETENTION CYST. CT MAXILLOFACIAL WITHOUT INTRAVENOUS CONTRAST MEDIUM. History: Chronic sinus infection.. Technical factors: CT maxillofacial was obtained and formatted as 1 mm contiguous axial images. Sagittal and coronal reconstruction obtained during postprocessing. Comparison: None. Findings: Bilateral frontal, sphenoid, ethmoid, and left maxillary sinuses are patent Rounded soft tissue attenuation visualized base right maxillary sinus. Radiopaque cutaneous marker overlies right zygomatic maxillary junction. Nasal septum midline. Ostiomeatal complexes patent bilaterally. Mastoid air cells well pneumatized bilaterally. Bilateral ocular globes, extraocular muscles, optic nerves, retrobulbar fat without anomaly. All CT scans at this facility use dose modulation, iterative reconstruction, and/or weight based dosing when appropriate to reduce radiation dose to as low as reasonably achievable. Ordering Provider: Micheline Dior FINAL REPORT Dictated: 10/28/2023 10:49 am Karthik Mistry MD Signed (Electronic Signature): 10/28/2023 10:49 am Signed by: Karthik Mistry MD Transcribed by: MANSOOR Technologist: [facility] HealthcareRadiology Study observation (narrative)[facility] HospitalCT MAXILLOFACIAL W/O CONTRASTOrdered By: Radiologist Radiology on [id number] Work Phone: [phone] PCR (CVDTB)on [id number]-CoV-2 (COVID- 19) RNA LINNETTE+probe Ql (Unsp spec)Not detectedNormalNOT DETECTEDThe [facility] Medical CenterComment on above:Result Comment: When diagnostic testing is negative, the possibility of a false negative should be considered in the context of a patient's recent exposures and the presence of clinical signs and symptoms consistent with SARS-CoV-2. This test is not yet approved or cleared by the [place] FDA. When there are no FDA-approved or cleared tests available, and other criteria are met, FDA can make tests available under an emergency access mechanism called an Emergency Use Authorization (EUA). The EUA for this test is supported by the Director Of Bands of Health and Human Service's declaration that circumstances exist to justify the emergency use of in vitro diagnostics for the detection and/or diagnosis of the virus that causes COVID-19. This EUA will remain in effect for the duration of the COVID-19 declaration justifying emergency of IVDs, unless it is terminated or revoked by the FDA (after which the test may no longer be used).Performed By: #### CVDTBH #### [facility] [address] [place] [address] Dr. Paul PerezUOFL [facility] with Auto Differentialon [id number] Eos #0.10[facility] HEALTHAbsolute Lymph #1.50[facility] HEALTHAbsolute [place] # 0.50[facility] HEALTHBasophils (Bld) [#/Vol]0.00 10*3/uLBON [facility]RS MERCY HEALTHBasophils/100 WBC (Bld)0 %0 - 2 %[facility] HEALTHDifferential TypeYESBON [facility] MERCY HEALTHEosinophils/100 WBC (Bld)2 %0 - 5 %[facility] HEALTHHematocrit (Bld) [Volume fraction]45.8 %41 - 53 %[facility] HEALTHHemoglobin (Bld) [Mass/Vol]15.4 g/dL13.5 - 17.5 g/dLBON [facility]OURS MERCY HEALTHLymphocytes/100 WBC (Bld)22 %13 - 44 %[facility] HEALTHMCH (RBC) [Entitic mass]30.4 pg26 - 34 pgBON SECOURS MERCY HEALTHMCHC (RBC) [Mass/Vol]33.5 g/dL31 - 37 g/dLB[facility]RS MERCY HEALTHMCV (RBC) [Entitic vol]90.5 fL80 - 100 fLBON SECOURS MERCY HEALTHMonocytes/100 WBC (Bld)7 %5 - 9 %[facility] HEALTHPlatelet distribution width (Bld) [Ratio]13.9 %12.1 - 15.2 %[facility] HEALTHPlatelets (Bld) [#/Vol]231 10*3/uLBON SECOURS MERCY HEALTHRBC (Bld) [#/Vol]5.07 10*6/uL4.5 - 5.9 m/uLBON SECOURS MERCY HEALTHSegmented neutrophils/100 WBC (Bld)69 %39 - 75 %[facility] HEALTHSegs Absolute4.60 [facility] HEALTHWBC (Bld) [#/Vol]6.8 10*3/uLBON SECOURS [facility] HOSPITALBON [facility] with Diffon [id number]. Basophil0.00 k/uLNormal 0.0-0.2MMercy Health Perrysburg HospitalComment on above:Performed By: #### CP, CDP, MG, TSHX, ZFAST #### [facility] [address] [place] [address] Avp: Teja Jung.Neutrophil (Seg)4.60 k/uLNormal2.1-6.5[facility] Medical CenterComment on above:Performed By: #### CP, CDP, MG, TSHX, ZFAST #### [facility] [address] [place] [address] Avp: Makenna Jung Diff PerformedYESNoSelect Medical [facility] Rehabilitation Hospital Comment on above:Performed By: #### CP, CDP, MG, TSHX, ZFAST #### [facility] [address] [place] [address] Avp: Syed Muñoz MDBasophils/100 WBC (Bld)0 %Normal0-2MMercy Health Perrysburg HospitalComment on above:Performed By: #### CP, CDP, MG, TSHX, ZFAST #### [facility] [address] [place] [address] Avp: JUANCARLOS Jungosinophils (Bld) [#/Vol]0.10 10*3/uLNormal0.0-0.4 [facility] Medical CenterComment on above:Performed By: #### CP, CDP, MG, TSHX, ZFAST #### [facility] [address] [place] [address] Avp: JUANCARLOS Jungosinophils/100 WBC (Bld)2 %Normal0-5[facility] Medical CenterComment on above:Performed By: #### CP, CDP, MG, TSHX, ZFAST #### [facility] [address] [place] [address] Avp: Syed Muñoz MDErythrocyte distribution width (RBC) [Ratio]13.9 % Rebmec07.1-15.2MMiddletown Hospitalment on above:Performed By: #### CP, CDP, MG, TSHX, ZFAST #### [facility] [address] [place] [id number] Avp: Syed Muñoz MDHematocrit (Bld) [Volume fraction]45.8 %Normal 41-53[facility] Medical CenterComment on above:Performed By: #### CP, CDP, MG, TSHX, ZFAST #### [facility] [address] [place] [address] Avp: Syed Muñoz MDHemoglobin (Bld) [Mass/Vol]15.4 g/dLNormal 13.5-17.5[facility] Municipal Hospitalment on above:Performed By: #### CP, CDP, MG, TSHX, ZFAST #### [facility] [address] [place] [address] Avp: Syed Muñoz MDLymphocytes (Bld) [#/Vol]1.50 10*3/uLNormal1.0-4.8 [facility] on above:Performed By: #### CP, CDP, MG, TSHX, ZFAST #### [facility] [address] [place] [address] Avp: Syed Muñoz MDLymphocytes/100 WBC (Bld)22 %Dllbdp28-49DrugcMercy Health Perrysburg Hospital on above:Performed By: #### CP, CDP, MG, TSHX, ZFAST #### [facility] [address] [place] [address] Avp: ASHLEY JungCH (RBC) [Entitic mass]30.4 maZwzawy16-90ArupnMercy Health Springfield Regional Medical CenterComment on above:Performed By: #### CP, CDP, MG, TSHX, ZFAST #### [facility] [address] [place] [id number] Avp: BEE JungC (RBC) [Mass/Vol]33.5 g/rCWajnyo33-98GjhxvMercy Health Springfield Regional Medical CenterComment on above:Performed By: #### CP, CDP, MG, TSHX, ZFAST #### [facility] [address] [place] [address] Avp: ASHLEY JungCV (RBC) [Entitic vol]90.5 yYRstikk46-710NoodzMercy Health Springfield Regional Medical CenterComment on above:Performed By: #### CP, CDP, MG, TSHX, ZFAST #### [facility] [address] [place] [address] Avp: ASHLEY Jungonocytes (Bld) [#/Vol]0.50 10*3/uLNormal0.0-1.0 [facility] Medical CenterComc.s. [facility] on above:Performed By: #### CP, CDP, MG, TSHX, ZFAST #### [facility] [address] [place] [address] Avp: ASHLEY Jungonocytes/100 WBC (Bld)7 %Normal5-9[facility] Medical CenterComment on above:Performed By: #### CP, CDP, MG, TSHX, ZFAST #### [facility] [address] [place] [address] Avp: Toan Jungophil (Seg)69 %Jlltqo05-77VwhqeMercy Health Springfield Regional Medical CenterComment on above:Performed By: #### CP, CDP, MG, TSHX, ZFAST #### [facility] [address] [place] [address] Avp: Faviola Junggrafton state hospital ([facility]) [#/Vol]231 10*3/mLUxywsx419-100 [facility] Medical CenterComc.s. [facility] on above:Performed By: #### CP, CDP, MG, TSHX, ZFAST #### [facility] [address] [place] [address] Avp: LUCILLE Jung ([facility]) [#/Vol]5.07 10*6/uLNormal4.5-5.9[facility] Medical CenterComment on above:Performed By: #### CP, CDP, MG, TSHX, ZFAST #### [facility] [address] [place] [address] Avp: COLETTE Jung ([facility]) [#/Vol]6.8 10*3/uLNormal3.5-11.0[facility] Medical CenterComc.[facility]. [facility] on above:Performed By: #### CP, CDP, MG, TSHX, ZFAST #### [facility] [address] [place] [address] Avp: LUIS Jungomp Metabolic Profon [id number] [Mass/Vol] 4.4 g/dLNormal3.5-5.2MMercy Health Perrysburg HospitalComment on above:Performed By: #### CP, CDP, MG, TSHX, ZFAST #### [facility] [address] [place] [id number] Avp: Myla Jung Phos79 U/NZslfcg21-135OvfluMercy Health Perrysburg Hospital on above:Performed By: #### CP, CDP, MG, TSHX, ZFAST #### [facility] [address] [place], [place] [id number] Avp: JAI Jung [Catalytic activity/Vol]23 U/LNormal5-41Mercy Selvin HospitalComment on above:Performed By: #### CP, CDP, MG, TSHX, ZFAST #### [facility] [address] [place] [address] Avp: Syed Muñoz MDAnion gap [Moles/Vol]12 mmol/LNormal9-17[facility] Medical CenterComment on above:Performed By: #### CP, CDP, MG, TSHX, ZFAST #### [facility] [address] [place] [address] Avp: Syed Muñoz MDAST [Catalytic activity/Vol]21 U/LNormal<40[facility] Medical CenterComment on above:Performed By: #### CP, CDP, MG, TSHX, ZFAST #### [facility] [address] [place] [address] Avp: Syed Muñoz MDBilirubin [Mass/Vol]0.4 mg/dLNormal0.3-1.2MMercy Health Perrysburg HospitalComment on above:Performed By: #### CP, CDP, MG, TSHX, ZFAST #### [facility] [address] [place] [address] Avp: Syed Muñoz MDBUN/CRE Bgfcg49Bbyz7-84RfcwfMercy Health Springfield Regional Medical Center Comment on above:Performed By: #### CP, CDP, MG, TSHX, ZFAST #### [facility] [address] [place] [address] Avp: LUIS Jungalcium [Mass/Vol]9.7 mg/dLNormal8.6-10.4[facility] Medical CenterComment on above:Performed By: #### CP, CDP, MG, TSHX, ZFAST #### [facility] [address] [place] [id number] Avp: LUIS Junghloride [Moles/Vol]103 mmol/RFicoyv85-675EeprdMercy Health Springfield Regional Medical CenterComment on above:Performed By: #### CP, CDP, MG, TSHX, ZFAST #### [facility] [address] [place] [address] Avp: LUIS JungO2 [Moles/Vol]24 mmol/ZUhzwzk70-29PbletMercy Health Perrysburg Hospital on above:Performed By: #### CP, CDP, MG, TSHX, ZFAST #### [facility] [address] [place] [address] Avp: LUIS Jungreatinine [Mass/Vol]0.68 mg/dLLow0.70-1.20[facility] on above:Performed By: #### CP, CDP, MG, TSHX, ZFAST #### [facility] [address] [place] [address] Avp: Syed Muñoz MDGFR/1.73 sq M.predicted among non-blacks MDRD (S/P/Bld) [Vol rate/Area]mL/min/{1.73_m2}Normal>60[facility] Medical CenterComc.[facility]. [facility] on above:Result Comment: Effective Jul 27, 2022 These results are not intended for use in patients <18 years of age. eGFR results are calculated without a race factor using the 2020 CKD-EPI equation. Careful clinical correlation is recommended, particularly when comparing to results calculated using previous equations. The CKD-EPI equation is less accurate in patients with extremes of muscle mass, extra-renal metabolism of creatine, excessive creatine ingestion, or following therapy that affects renal tubular secretion.Performed By: #### CP, CDP, MG, TSHX, ZFAST #### [facility] [address] [place] [id number] Avp: Syed Muñoz MDGlucose [Mass/Vol]122 mg/pLUhqu65-73YyywmMercy Health Perrysburg HospitalComc.s. [facility] on above:Performed By: #### CP, CDP, MG, TSHX, ZFAST #### [facility] [address] [place] [id number] Avp: AMITA Jungotassium [Moles/Vol]4.3 mmol/LNormal3.7-5.3MMercy Health Perrysburg HospitalComment on above:Performed By: #### CP, CDP, MG, TSHX, ZFAST #### [facility] [address] [place] [id number] Avp: Syed Muñoz MDProtein [Mass/Vol]6.9 g/dLNormal6.4-8.3MMercy Health Perrysburg HospitalComment on above:Performed By: #### CP, CDP, MG, TSHX, ZFAST #### [facility] [address] [place] [address] Avp: Syed Muñoz MDSodium [Moles/Vol]139 mmol/CXshcji341-766FninkMercy Health Springfield Regional Medical CenterComment on above:Performed By: #### CP, CDP, MG, TSHX, ZFAST #### [facility] [address] [place] [id number] Avp: Syed Muñoz MDUrea nitrogen [Mass/Vol]14 mg/dLNormal8-23[facility] Medical CenterComment on above:Performed By: #### CP, CDP, MG, TSHX, ZFAST #### [facility] [address] [place] [address] Avp: LUIS Jungomprehensive Metabolic Panelon [id number] [Mass/Vol]4.4 g/dL3.5 - 5.2 g/dLBON [facility]CH[facility] HEALTHALP (Bld) [Catalytic activity/Vol]79 U/L40 - 129 U/LBON [facility]RS [facility] HEALTHALT [Catalytic activity/Vol]23 U/L5 - 41 U/LBON SECOURS [facility] HOSPITALAnion gap [Moles/Vol]12 mmol/L9 - 17 mmol/LBON [facility]RS [facility] HEALTHAST [Catalytic activity/Vol]21 U/L NINF - 40 U/LBON SECOURS MERCBlue Focus PR Consulting [facility] MEDICAL CENTERBilirubin [Mass/Vol]0.4 mg/dL0.3 - 1.2 mg/dLBON COLUSA [facility] MEDICAL CENTERBlue Focus PR Consulting [facility] MEDICAL CENTERCalcium [Mass/Vol]9.7 mg/dL8.6 - 10.4 mg/dLBON COLUSA [facility] MEDICAL CENTERBlue Focus PR Consulting [facility] MEDICAL CENTERChloride [Moles/Vol]103 mmol/L98 - 107 mmol/LBON COLUSA [facility] MEDICAL CENTERBlue Focus PR Consulting [facility] MEDICAL CENTERCO2 [Moles/Vol]24 mmol/L20 - 31 mmol/LBON [facility] Creatinine [Mass/Vol]0.68 mg/dLLow0.70 - 1.20 mg/dLBON COLUSA REGIONAL MEDICAL CENTERRun [employer] GFR/1.73 sq M.predicted MDRD (S/P/Bld) [Vol rate/Area]- PINFBON MER[facility]ALTH ST. [facility]INCENT MEDICAL CENTERComment on above: Effective Jul 27, 2022 These results are not intended for use in patients <18 years of age. eGFR results are calculated without a race factor using the 2020 CKD-EPI equation. Careful clinical correlation is recommended, particularly when comparing to results calculated using previous equations. The CKD-EPI equation is less accurate in patients with extremes of muscle mass, extra-renal metabolism of creatine, excessive creatine ingestion, or following therapy that affects renal tubular secretion. Glucose [Mass/Vol]122 mg/bZRaxv78 - 99 mg/dLBON [facility] [employer] Interpretation and review of laboratory resultsAbnormalBON [facility] Potassium [Moles/Vol]4.3 mmol/L3.7 - 5.3 mmol/LBON [facility] MEDICAL CENTERProtein [Mass/Vol]6.9 g/dL6.4 - 8.3 g/dLBON COLUSA [facility] MEDICAL CENTERBlue Focus PR Consulting FISH[facility] MEDICAL CENTERSodium [Moles/Vol]139 mmol/L135 - 144 mmol/LBON [facility] MEDICAL CENTERUrea nitrogen (BldV) [Mass/Vol]14 mg/dL8 - 23 mg/dLBON [facility] MEDICAL CENTERUrea nitrogen/Creatinine (Bld) [Mass ratio]13Nhqn0 - 20BON [facility] MED[facility] CENTERBlue Focus PR Consulting [facility]US MEDICAL CENTERLipid Panelon [id number] [Mass/Vol]167 mg/dLNINF - 200 mg/dLBON COLUSA [facility] MEDICAL CENTERBlue Focus PR Consulting [facility] MEDICAL CENTERComment on above: Cholesterol Guidelines: <200 Desirable 200-240 Borderline >240 Undesirable Cholesterol in HDL [Mass/Vol]61 mg/dL40 - PINF mg/dLBON [facility] Comment on above: HDL Guidelines: <40 Undesirable 40-59 Borderline >59 Desirable Cholesterol in LDL [Mass/Vol]84 mg/dL0 - 130 mg/dLBON [facility] Comment on above: LDL Guidelines: <100 Desirable 100-129 Near to/above Desirable 130-159 Borderline >159 Undesirable Direct (measured) LDL and calculated LDL are not interchangeable tests. Cholesterol.total/Cholesterol in HDL [Mass ratio]2.7 {ratio}NINF - 5BON [facility] MEDICAL CENTERTriglyceride [Mass/Vol]112 mg/dLNINF - 150 mg/dLBON [facility] MEDICAL CENTERComment on above: Triglyceride Guidelines: <150 Desirable 150-199 Borderline 200-499 High >499 Very high Based on AHA Guidelines for fasting triglyceride, July 2012. BON [facility] MEDICAL CENTERMagnesiumon 36-82-2710Ruzvkfkkq [Mass/Vol]1.9 mg/dL Normal1.6-2.6Mer[facility]it Health CentralComment on above:Performed By: #### BRAYAN, CDP, MG, TSHX, ZFAST #### [facility] [address] [place] [id number] Avp: Jessica Junggnesium [Mass/Vol]1.9 mg/dL1.6 - 2.6 mg/dLBON [facility] MEDICAL CENTERNo Panel Informationon [id number] [facility] Patient Fasting?on 01-51-2567Wpiutmc Fasting?YESBON [facility] MED[facility] CENTERBON [facility] MEDICAL CENTERPatient fasting?on 05-20-4875Gefpbvl fasting?YESNormalMercy Health Springfield Regional Medical CenterComment on above:Performed By: #### CP, CDP, MG, TSHX, ZFAST #### [facility] [address] [place] [address] Avp: MORENA Jung w/reflex to FT4on 12-99-6108Tdhtjzx Stim. Horm.2.12 uIU/mLNormal0.30-5.00[facility] Medical CenterComment on above:Performed By: #### CP, CDP, MG, TSHX, ZFAST #### [facility] [address] [place] [address] Avp: Syed Muñoz MDHIGHLINE [facility] with Reflexon [id number] Qn2.12 m[IU]/LBON [facility] MED[facility] CENTERBON [facility] MEDICAL CENTERXR CHEST (2 VW)on [id number] CHEST (2 VW)EXAM: CHEST 2 VIEWS HISTORY: Reason for exam:->hypertension TECHNIQUE: PA and lateral views chest. COMPARISON: None. FINDINGS: The lungs are clear. There is no focal lung consolidation, pleural effusion or pneumothorax. There is a calcified left perihilar nodule. Pulmonary vasculature is within normal limits. Thoracic aorta is tortuous. Heart size within normal limits. There is mild degenerative spurring of the thoracic spine. IMPRESSION: 1. No acute cardiopulmonary disease. 2. Mildly tortuous thoracic aorta and normal heart size. Interpreted by: Luz Maria Alvarez MD Signed by: Luz Maria Alvarez MD 10/27/22 Final resultNoSelect Medical OhioHealth Rehabilitation Hospital1. No acute cardiopulmonary disease. 2. Mildly tortuous thoracic aorta and normal heart size. [facility] RIS CONSOLIDATEDEXAM: CHEST 2 VIEWS HISTORY: Reason for exam:->hypertension TECHNIQUE: PA and lateral views chest. COMPARISON: None. FINDINGS: The lungs are clear. There is no focal lung consolidation, pleural effusion or pneumothorax. There is a calcified left perihilar nodule. Pulmonary vasculature is within normal limits. Thoracic aorta is tortuous. Heart size within normal limits. There is mild degenerative spurring of the thoracic spine. [facility] Luz Maria Bojorquez MD - 10/27/2022 EXAM: CHEST 2 VIEWS HISTORY: Reason for exam:->hypertension TECHNIQUE: PA and lateral views chest. COMPARISON: None. FINDINGS: The lungs are clear. There is no focal lung consolidation, pleural effusion or pneumothorax. There is a calcified left perihilar nodule. Pulmonary vasculature is within normal limits. Thoracic aorta is tortuous. Heart size within normal limits. There is mild degenerative spurring of the thoracic spine. IMPRESSION: 1. No acute cardiopulmonary disease. 2. Mildly tortuous thoracic aorta and normal heart size. [facility] Work Phone: radiology Study observation (narrative)[employer] Phone: XR CHEST (2 VW)Ordered By: Luz Maria Alvarez on 10-27-2022 [employer] Phone: XR KUB 1 VIEWon [id number] KUB 1 VIEWEXAMINATION: XR KUB 1 VIEW HISTORY: Kidney stone follow-up COMPARISON: XR KUB 07/31/2021 FINDINGS: KIDNEY/URETER - RIGHT: No visible renal or ureteral calcifications. KIDNEY/URETER - LEFT: Stable, approximately 5 mm stone projecting over left kidney. PELVIS: No visible ureteral stones. Stable left pelvic calcification favoring a phlebolith. BOWEL: No abnormal dilation or deviation. BONES: No acute abnormality. OTHER: Negative. No abnormal gaseous collections. IMPRESSION: 1. Stable left nephrolithiasis. Electronically authenticated by: ARI WANG Date: 2022-07-28 13:00[facility] HospitalXR Spine Lumbar Complete w/Flex AND Morton [id number] Spine Lumbar Complete w/Flex AND ExtCLINICAL HISTORY: Low back pain radiating down the right lower extremity for a few weeks without specific injury. COMPARISON: CT abdomen and pelvis 01/03/2020. TECHNIQUE: AP, lateral, flexion and extension lateral, oblique, coned down AP and lateral views of the lumbar spine were obtained. FINDINGS: Mild disc space narrowing is present at L4-L5. Mild hypertrophic changes are noted of the lower levels. Mild anterolisthesis of L4 over L5 is present of approximately 4 mm with flexion, with improvement to approximately 2 mm left lateral and flexion positioning suggesting mild instability. There is no other evidence of instability with flexion or extension positioning compression, fracture, significant subluxation, worrisome bone destruction, or other findings of concern identified. The sacroiliac joints are unremarkable. An approximately 8 mm left upper pole renal calculus and mild atherosclerotic plaquing are again noted. IMPRESSION: LUMBAR SPONDYLOSIS PREDOMINANTLY AT L4-L5, WITH MILD ANTEROLISTHESIS AND EVIDENCE OF MILD INSTABILITY, DESCRIBED. Report reported and signed by Ari Locke on 03/21/2022 0801Rekhaadventhealth hendersonvilleRekhaWyandot Memorial HospitalQ - TISSUE PATHOLOGYon 11-13-2021 DIAGNOSIS IRRITATED/INFLAMED SEBORRHEIC KERATOSISNoProMedica Memorial Hospital Specialist Comment on above:Order Comment: [facility] Testing performed at: [facility], [facility], -[facility], [address] [place] [address], [address], [address] [place] [address], Park Guide: Rachelle Larsen MD [facility] Collection Date/Time: [facility] Results Received Date/Time: [facility] Reported Date/Time: [id number] By: #### 125F #### [facility] Default [address] [place], [place] [address]W GROSS DESCRIPTIONSEE [facility] Specialist Comment on above:Order Comment: [facility] Testing performed at: [facility], [facility], [facility]ENTERDerm[facility], [address] [place] [address], [address], [address] [place] [address], Park Guide: Rachelle Larsen MD [facility] Collection Date/Time: [facility] Results Received Date/Time: [facility] Reported Date/Time: [id number] Comment: The specimen received in formalin was miller in color and measured 9 x 8 x 3 mm. It was sectioned into four segments. This gross description meets regulatory standards for positive identification using two patient identifiers. /cat/hcPerformed By: #### 125F #### [facility] Default [address] [place], [place] [address]U MICRO DESCRIPTIONSEE NOTENoProMedica Memorial Hospital Specialist Comment on above:Order Comment: [facility] performed at: [facility], [facility], -[facility], [address] [place], [place] [address], [address], [address] [place] [address], Park Guide: Rachelle Larsen MD [facility] Collection Date/Time: [facility] Results Received Date/Time: [facility] Reported Date/Time: [id number] Comment: The specimen displays variable acanthosis and papillomatosis with pseudohorncysts and overlying hyperkeratosis and parakeratosis. The acanthotic epidermis is focally spongiotic with whorled collections of keratinocytes. Within the underlying dermis, there are inflammatory infiltrates. /catPerformed By: #### 125F #### [facility] Default [address] [place], [place] [address]C PROCEDUREBIOPSYSt. Elizabeth Hospital SpecialistComment on above:Order Comment: [facility] Testing performed at: [facility], [facility], [address] [place] [address], [facility], [address] [place] [address], [id number], Park Guide: Rachelle Larsen MD [facility] Collection Date/Time: [facility] Results Received Date/Time: [facility] Reported Date/Time: [id number] By: #### 125F #### [facility] Default [address] [place], [place] [address]M SOURCELEFT SIDE NECKSt. Elizabeth Hospital Specialist Comment on above:Order Comment: [facility] Testing performed at: W, [place] [facility], [address] [place] [address], [address] [place] [address], [address] [place] [address], Park Guide: Rachelle Larsen MD [facility] Collection Date/Time: [facility] Results Received Date/Time: [facility] Reported Date/Time: [id number] By: #### 125F #### [facility] Default [address] [place], [place] [address]Lkriowiqnkj Cyto stain Nom (Cvx/Vag) [ID]SEE [facility] SpecialistComment on above:Order Comment: [facility] Testing performed at: W, [facility], [address] [place] [address], [address] [place] [address], [address] [place] [address], Park Guide: Rachelle Larsen MD [facility] Date/Time: [facility] Results Received Date/Time: [facility] Reported Date/Time: [id number] Comment: Pierre Darden MD Board certified in Dermatopathology and Anatomic Pathology (electronic signature). For questions regarding this report call [facility] at [phone].Performed By: #### 125F #### [facility] Default [address] [place] [address]K - JOSIANE MULTIPLEX W/ REFLEX TO 11 ANTIBODY CASCADEon 10-21-2021 ANACHOICE(R) SCREENNegativeNormalNEGATIVENortSelect Medical Specialty Hospital - TrumbullComment on above:Order Comment: [facility] Testing performed at: [employer], [facility], [address], [address] [place] [address], [id number], Park Guide: Luis Carlos Peoples MD [facility] Collection Date/Time: [id number] [facility] Results Received Date/Time: [id number] [facility] Reported Date/Time: [id number] Comment: A negative JOSIANE Multiplex, with Reflex to 11 Antibody [place] indicates the absence of detectable antibodies to component analytes consisting of double stranded DNA (dsDNA), chromatin, ribonucleoprotein (HEATER PLANER OPERATOR), Oliver/HEATER PLANER OPERATOR (Sm/HEATER PLANER OPERATOR), Oliver (Sm), SS-A, SS-B, Rebekah-1, centromere B, Scl-70 and ribosomal P. A negative result should be interpreted in the context of the clinical and laboratory findings and does not rule out autoimmune disease characterized by other autoantibody specificities such as rheumatoid arthritis, autoimmune hepatitis, primary biliary cirrhosis, autoimmune thyroiditis, Yony's disease, pernicious anemia, autoimmune neuropathies, vasculitis, celiac disease, and bullous disease. For additional information, please refer to [email or web address] (This link is being provided for informational/ educational purposes only.)Performed By: #### [id number], 549 #### [facility] Default [address] [place], [place] [address]T - IMMUNOFIXATION SERon 30-67-8010BNQBDKJXBZUBAGVssuwrynRmydqv [facility] HospitalComment on above:Order Comment: [facility] Testing performed at: [employer], [facility], [address] [place], [address], Park Guide: Luis Carlos Peoples MD [facility] Date/Time: [id number] [facility] Results Received Date/Time: [id number] [facility] Reported Date/Time: [id number] By: #### [address], 549 #### [facility] Default [address] [place], [place] [address]EZV Sedimentation Rateon 06-32-8626IUD (Bld) [Velocity]10.00 mm/h Normal0.00-20.00NoTriHealth SpecialistComment on above:Performed By: #### TSH reflex FT4, ESR #### [facility] [address] [place], [place] [id number] w/ Reflex to Free T4on 20-84-4075AEF7.310 uIU/mLNormal 0.400-4.500NortOhio Valley Hospital SpecialistComment on above:Performed By: #### TSH reflex FT4, ESR #### [facility] [address] [place], [place] [id number] B12on 10-06-0575Rrcqzltsj (Vitamin B12) [Mass/Vol]665 pg/qNEqcpvr539-008Zjizkvzg [facility] SpecialistComment on above:Performed By: #### B12 #### [facility] [address] [place], [place] [address] Vital Signs Date TimeVital SignValuePerforming SioomfniyHqkrjxis84-47-8735 08:53-0500Body cgpfza671.5 cmKel Mici PA-C Work Phone: [facility]11-03-2025 08:53-0500Body mass index (BMI) [Ratio]29.87 kg/u3Eloma Mici PA-C Work Phone: [phone])039-[facility]11-03-2025 08:53-0500Body chkngo761.41 kgKelsi Mici PA-C Work Phone: [facility]11-03-2025 08:53-0500Diastolic blood mqgmfqro49 mm[Hg]Daniel Mici PA-C Work Phone: [facility]11-03-2025 08:53-0500Heart rate 68 /minKelsi Mici PA-C Work Phone: [facility]11-03-2025 08:53-0500Systolic blood wgydonwy586 mm[Hg]Daniel Mici PA-C Work Phone: [facility]10-30-2025 08:30-0400Body wojltm827 cmSteven Rusher DPM Work Phone: [facility] HospitalUsyldnrvpy69-36-8748 08:30-0400Body mass index (BMI) [Ratio]30.56 kg/y7Xzvinb Rusher DPM Work Phone: [facility] HospitalFakcksszlt65-69-3783 08:30-0400Body .96 kgSteven Rusher DPM Work Phone: [facility] HospitalRptknomfry77-25-3392 08:53-0400Body cljfnu116 cm Nathalie Maharajhart AUTOMOTIVE DESIGN DRAFTER Work Phone: [phone] HospitalLjfqrupcmg93-71-6990 08:53-0400Body mass index (BMI) [Ratio]30.56 kg/p2Nnphanwl Swinehart AUTOMOTIVE DESIGN DRAFTER Work Phone: [phone] HospitalWhemdtveyd25-06-9171 08:53-0400Body temperature 97.3 [degF]Nathalie Swinehart AUTOMOTIVE DESIGN DRAFTER Work Phone: [facility] HospitalUdtekogapc86-02-5927 08:53-0400Body waskjs970.96 kgAshleisivakumar Swinehart AUTOMOTIVE DESIGN DRAFTER Work Phone: [phone] [address]Nexklmmefi50-07-1409 08:53-0400Diastolic blood toeqftyx64 mm[Hg]Nathalie Swinehart AUTOMOTIVE DESIGN DRAFTER Work Phone: [place] [address]Rwuezjggxj96-93-1872 08:53-0400Heart rate69 /min Nathalie Swinehart AUTOMOTIVE DESIGN DRAFTER Work Phone: [place] [address]Nazwdlscdk40-58-0058 08:53-8200VvF1% (BldA) [Mass fraction]93 %Nathalie Swinehart AUTOMOTIVE DESIGN DRAFTER Work Phone: [phone] [address]Peawbcpfcd46-73-4041 08:53-0400Systolic blood iydcxgns417 mm[Hg]Nathalie Kelly AUTOMOTIVE DESIGN DRAFTER Work Phone: [facility] HospitalNvhqlupfxg88-95-7751 08:22-0400Body zncuzb385 cm Ari Sauceda DPM Work Phone: [facility] HospitalBgugpkjyum72-58-0452 08:22-0400Body mass index (BMI) [Ratio]31.71 kg/f3Qfhkbw Rusher DPM Work Phone: 1(983)321-[address] [place], [place] [address]Ifjipyrftu18-27-3751 08:22-0400Body dsqqzo291.04 kgStmarty Sauceda DPM Work Phone: [phone] [place], [place] [address]Lccbmrwudn69-12-4124 08:04-0400Body reueqs549 cm Judith Massey AUTOMOTIVE DESIGN DRAFTER Work Phone: [phone] HospitalRtstobeqek85-95-6385 08:04-0400Body mass index (BMI) [Ratio]31.79 kg/z0Uohakbu Massey AUTOMOTIVE DESIGN DRAFTER Work Phone: 1(484)310-[address] [place], [place] [address]Zdrzbkfnvo08-50-3362 08:04-0400Body eskgjw166.31 kgChristy Massey AUTOMOTIVE DESIGN DRAFTER Work Phone: 1([phone] [place], [place] [address]Bjifmkjntx40-19-9917 08:04-0400Diastolic blood vvnodmdf69 mm[Hg]Judith Massey AUTOMOTIVE DESIGN DRAFTER Work Phone: [phone] HospitalLqtiszvobm07-39-0796 08:04-0400Heart rate67 /min Judith Massey AUTOMOTIVE DESIGN DRAFTER Work Phone: 1(438)886-[address] [place], [place] [address]Evhsxnzblb62-54-2109 08:04-0400Respiratory rate18 /minChristy Massey AUTOMOTIVE DESIGN DRAFTER Work Phone: 1(587)256-[address] [place], [place] [address]Nzoavdnxyg75-58-8447 08:04-8541KhV9% (BldA) [Mass fraction]96 %Judith Massey AUTOMOTIVE DESIGN DRAFTER Work Phone: [phone] HospitalWcooynbszi19-30-9855 08:04-0400Systolic blood mvfypbcc602 mm[Hg]Judith Massye AUTOMOTIVE DESIGN DRAFTER Work Phone: [phone] [address]Lvuzqkysnj91-47-3676 13:27-0400Body cm Stella [address] AUTOMOTIVE DESIGN DRAFTER Work Phone: 1(544)727-[address] [place] [address]30[address]25 13:27-0400Body mass index (BMI) [Ratio]31.71 kg/l7CzmlxStella Lane AUTOMOTIVE DESIGN DRAFTER Work Phone: [phone] [address]Rjzazgoekk96-62-6756 13:27-0400Body temperature 98.8 [degF]Stella Lane AUTOMOTIVE DESIGN DRAFTER Work Phone: 1(411)281-[address] [place], [place] [address] 13:27-0400Body ctsjwi432.[address] AUTOMOTIVE DESIGN DRAFTER Work Phone: 1(103)182-[address] [place] [address]30[address]25 13:27-0400Diastolic blood ukqfuexm95 mm[Hg]Stella Lane AUTOMOTIVE DESIGN DRAFTER Work Phone: 1(560)615-[address] [place] [address]30[address]2025 13:27-0400Heart rate88 /min Stella Lane AUTOMOTIVE DESIGN DRAFTER Work Phone: 1(071)456-[address] [place] [address]30[address]2025 13:27-0400Respiratory rate18 /minSvivi Lane AUTOMOTIVE DESIGN DRAFTER Work Phone: 1(333)480-[address] [place] [address]30[address]2025 13:27-0594LgV6% (BldA) [Mass fraction]96 %Stella Lane AUTOMOTIVE DESIGN DRAFTER Work Phone: 1(717)476-[address] [place] [address]30[address]2025 13:27-0400Systolic blood ajtrueor780 mm[Hg]Stella Lane AUTOMOTIVE DESIGN DRAFTER Work Phone: 1(618)782-[address] [place], [place] [address] 08:27-0400Body qnrrna957 cm Ari Sauceda DPM Work Phone: [phone] [address]Ohwzrdnvwv30-76-4963 08:27-0400Body mass index (BMI) [Ratio]31.46 kg/c4ZovzwiAri Sauceda DPM Work Phone: [phone] [address]Zxbcsmsksk32-93-9230 08:27-0400Body xhaavy776.13 kgStmarty Sauceda DPM Work Phone: 1(769)050-[address] [place], [place] [address] 10:220400Body umdlki[address] AUTOMOTIVE DESIGN DRAFTER Work Phone: 1(414)123-[address] [place] [address]25[address]2025 10:220400Body mass index (BMI) [Ratio]32.18 kg/z2TqexqStella Lane AUTOMOTIVE DESIGN DRAFTER Work Phone: 1(400)813-[address] [place] [address]25[address]2025 10:220400Body temperature 98.6 [degF]Stella Lane AUTOMOTIVE DESIGN DRAFTER Work Phone: 1(298)928-[address] [place], [place] [address] 10:220400Body jegymp157.[address] AUTOMOTIVE DESIGN DRAFTER Work Phone: 1(534)667-[address] [place] [address]25[address]2025 10:0400Diastolic blood mm[Hg]Stella Lane AUTOMOTIVE DESIGN DRAFTER Work Phone: 1(834)713-[address] [place] [address]25[address]2025 10:0400Heart rate67 /min Stella Lane AUTOMOTIVE DESIGN DRAFTER Work Phone: 1(216)[facility] [place] [address]25[address]2025 10:5265VhB6% (BldA) [Mass fraction]98 %Stella Lane AUTOMOTIVE DESIGN DRAFTER Work Phone: 1(863)520-[address] [place] [address]25[address]2025 10:0400Systolic blood exiycrhs255 mm[Hg]Stella Lane AUTOMOTIVE DESIGN DRAFTER Work Phone: 1(480)397-[address] [place] [address]13-2025 11:04-0500Body omewje198 cm Nancy Hadarrius AUTOMOTIVE DESIGN DRAFTER Work Phone: 1(841)[facility] [place] [address]13-2025 11:04-0500Body mass index (BMI) [Ratio]32.25 kg/r1Wcwpcogt Tyler AUTOMOTIVE DESIGN DRAFTER Work Phone: 1(313)995-[address] [place] [address]13-2025 11:04-0500Body temperature 99.39 [degF]Nancy Vegadarrius AUTOMOTIVE DESIGN DRAFTER Work Phone: 1(706)407-[address] [place] [address]13-2025 11:04-0500Body crkyju700.94 kgPhoenixmaryan Tyler AUTOMOTIVE DESIGN DRAFTER Work Phone: 1(328)[facility] [place], [place] [address] 11:04-0500Diastolic blood efxsqulg87 mm[Hg]Nancy Scott AUTOMOTIVE DESIGN DRAFTER Work Phone: 1(183)756-[address] [place] [address]13-2025 11:04-0500Heart klvd650 /min Nancy Scott AUTOMOTIVE DESIGN DRAFTER Work Phone: 1(505)[facility] [place] [address]13-2025 11:04-3720SbS6% (BldA) [Mass fraction]95 %Nancy Scott AUTOMOTIVE DESIGN DRAFTER Work Phone: 1(542)767-[address] [place] [address]13-2025 11:04-0500Systolic blood tfncriez163 mm[Hg]Nancy Scott AUTOMOTIVE DESIGN DRAFTER Work Phone: 1(797)[facility] [place] [address]-11-2025 09:57-0500Body tveewh[address] AUTOMOTIVE DESIGN DRAFTER Work Phone: 1(355)[facility] [place], [place] [address]Cposgeghnv37-43-1961 09:57-0500Body mass index (BMI) [Ratio]32.56 kg/s8PohtyStella Lane AUTOMOTIVE DESIGN DRAFTER Work Phone: 1(532)[facility] [place] [address]-11-2025 09:57-0500Body temperature 99.3 [degF]Stella Lane AUTOMOTIVE DESIGN DRAFTER Work Phone: 1(194)[facility] [place] [address]-11-2025 09:57-0500Body sevadt418.[address] AUTOMOTIVE DESIGN DRAFTER Work Phone: 1(732)[facility] [place] [address]-11-2025 09:57-0500Diastolic blood phiguwpf34 mm[Hg]Stella Lane AUTOMOTIVE DESIGN DRAFTER Work Phone: 1(215)585-[address] [place] [address]-11-2025 09:57-0500Heart rate94 /min Stella Lane AUTOMOTIVE DESIGN DRAFTER Work Phone: 1(151)[facility] [place] [address]-11-2025 09:57-9844JnY9% (BldA) [Mass fraction]95 %Stella Lane AUTOMOTIVE DESIGN DRAFTER Work Phone: 1(077)[facility] [place] [address]-11-2025 09:57-0500Systolic blood kjexiosy356 mm[Hg]Stella Lane AUTOMOTIVE DESIGN DRAFTER Work Phone: [phone] HospitalBpricktkno33-80-5723 13:46-0500Blood Pressure LocationLucius CA [facility]01-27-2025 13:46-0500Diastolic blood hsymnkta76 mm[Hg]Lucius [facility]01-27-2025 13:46-0500Heart rate84 /minLucius CA [facility]01-27-2025 13:46-0500Respiratory rate16 /minLucius CA [facility]01-27-2025 13:46-0500Systolic blood mm[Hg][place]ius [facility] [place] [address]-13-2025 08:33-0500Body qobwdc043 cmSteven Jerrellher DPM Work Phone: 1(754)226-[address] [place], [place] [address]Mdpleymlrk25-58-3741 08:33-0500Body mass index (BMI) [Ratio]32.61 kg/v7Kuxqjo Rusher DPM Work Phone: 1(160)741-[address] [place], [place] [address]Vaytinlvnv64-00-0137 08:33-0500Body tfjeen364.21 kgSteven Rusher DPM Work Phone: [facility] HospitalYhfriqdhot05-77-7995 08:06-0500Body temperature 97.5 [degF]Judith Massey AUTOMOTIVE DESIGN DRAFTER Work Phone: [facility] HospitalNjsswxvsdf75-93-5727 08:06-0500Diastolic blood cjqnoeaf85 mm[Hg]Judith Escotok AUTOMOTIVE DESIGN DRAFTER Work Phone: [facility] HospitalRjpeuhysqu43-62-2863 08:06-0500Systolic blood pqomsnxr760 mm[Hg]Judith Escotok AUTOMOTIVE DESIGN DRAFTER Work Phone: [place] [address]Tldjtdovwy83-25-3356 09:11-0500Blood Pressure LocationLucius AC [facility] [place] 573702-10-2024 09:11-0500Diastolic blood cadlhwnp43 mm[Hg][facility]ius [facility] [place] 573702-10-2024 09:11-0500Respiratory rate17 /minLucius CA [facility] [place] 573702-10-2024 09:11-0500Systolic blood avnrmpnn286 mm[Hg][facility] [place] 573701-25-2024 13:34-0500Body mass index (BMI) [Ratio]32.61 kg/m7UjaybuvnNancy Scott AUTOMOTIVE DESIGN DRAFTER Work Phone: [place] [address]Jokhkaabrt45-75-2101 13:34-0500Body xykfok432.21 kgNancy Scott AUTOMOTIVE DESIGN DRAFTER Work Phone: [place] [address]Xygepiroen45-68-8814 13:34-0500Diastolic blood mm[Hg]Nancy Scott AUTOMOTIVE DESIGN DRAFTER Work Phone: [facility] HospitalBxjtqsvmzp07-99-5962 13:34-0500Heart rate79 /min Nancy Scott AUTOMOTIVE DESIGN DRAFTER Work Phone: [place] [address]Pjvlwikkwp01-69-3880 13:34-0500Systolic blood mm[Hg]Nancy Scott AUTOMOTIVE DESIGN DRAFTER Work Phone: [place] [address]Flyeuftlhl10-34-6844 13:52-0500Body wtzaei155.5 Kelly Molina MD Work Phone: [facility]11-18-2024 13:52-0500Body mass index (BMI) [Ratio]31.87 kg/c4JgwjiGarth Molina MD Work Phone: [facility]11-18-2024 13:52-0500Body unslxy010.67 kgGarth Molina MD Work Phone: [facility]11-18-2024 13:52-0500Diastolic blood czgffyxw23 mm[Hg]Garth Molina MD Work Phone: 1(940)746-[address] [place], [place] [address]11-18-2024 13:52-0500Heart rate 75 /minGarth Molina MD Work Phone: 1(911)206-[address] [place], [place] [address]11-18-2024 13:52-1736NnH9% (BldA) [Mass fraction]98 %Garth Molina MD Work Phone: 1(957)261-[address] [place], [place] [address]11-18-2024 13:52-0500Systolic blood eldawaky827 mm[Hg]Garth Molina MD Work Phone: 1(329)253-[address] [place], [place] [address]10-30-2024 14:13-0400Body mass index (BMI) [Ratio]32.87 kg/d5Abeifkn Massey AUTOMOTIVE DESIGN DRAFTER Work Phone: [facility] HospitalNvtswztdhx46-48-1256 14:13-0400Body pbejrc151.12 kgChristy Massey AUTOMOTIVE DESIGN DRAFTER Work Phone: [facility] HospitalMzjhiawrpd00-39-5840 14:13-0400Diastolic blood enzogabi87 mm[Hg]Judith Browerpatrick AUTOMOTIVE DESIGN DRAFTER Work Phone: [facility] HospitalZakycdxnye67-29-3434 14:13-0400Heart rate83 /min Judith Hargrovetrick AUTOMOTIVE DESIGN DRAFTER Work Phone: [facility] HospitalGfzuqcvhce22-13-4149 14:13-0400Systolic blood wlrpqpuw162 mm[Hg]Judith Massey AUTOMOTIVE DESIGN DRAFTER Work Phone: [facility] HospitalKylmojhffi00-63-8700 09:20-0400Diastolic blood qsbyhvru39 mm[Hg][facility]10-24-2024 09:20-0400Systolic blood pyfikylj420 mm[Hg][facility]10-24-2024 08:50-0400 Body mxhhud306.5 [facility]10-24-2024 08:50-0400Body mass index (BMI) [Ratio]31.62 kg/m2[facility]10-24-2024 08:50-0400Body asipcy149.76 kgC[facility]10-24-2024 08:50-0400Heart rate93 /minC[facility]10-24-2024 08:50-0400 SaO2% (BldA) [Mass fraction]90 %[facility]10-09-2024 13:18-0400Body bcyzuj277 cmPiper Knight MD Work Phone: 1(349)[address] [place], [place] 95[address]310-09-2024 13:18-0400Body mass index (BMI) [Ratio]32.1 kg/n4NeioewnpPiper Knight MD Work Phone: 1(951)[address] [place], [place] 9530310-09-2024 13:18-0400Body aawxwx806.4 kgPiper Knight MD Work Phone: 1(786)[address] [place], [place] 9530310-09-2024 13:18-0400Diastolic blood xaqgzjvd24 mm[Hg]Piper Knight MD Work Phone: 1(241)[address] [place], [place] 95[address]-09-2024 13:18-0400Heart rate 81 /minPiper Knight MD Work Phone: 1(464)[address] [place], [place] 95[address]310-09-2024 13:18-3219WtD3% (BldA) [Mass fraction]96 %Piper Knight MD Work Phone: 1(235)[address] [place], [place] 95[address]310-09-2024 13:18-0400Systolic blood dyzqjgey427 mm[Hg]Piper Knight MD Work Phone: 1(903)[address] [place], [place] 95[address]309-30-2024 08:33-0400Body wiadwl650 cmSteven Komal DPM Work Phone: [facility] HospitalOkigfrapzv22-23-4864 08:33-0400Body mass index (BMI) [Ratio]32.61 kg/c9Upksle Rusher DPM Work Phone: [facility] HospitalXlmwfzvxep33-69-7455 08:33-0400Body fduuew148.21 kgSteven Rusher DPM Work Phone: [facility] HospitalRylwhcpkjw38-75-4651 09:23-0400Body mass index (BMI) [Ratio]32.61 kg/c8Aqrzore Massey AUTOMOTIVE DESIGN DRAFTER Work Phone: [facility] HospitalGltuxvzbas89-88-8838 09:23-0400Body temperature 97.11 [degF]Judith Massey AUTOMOTIVE DESIGN DRAFTER Work Phone: [facility] HospitalQcjassfouj92-23-0694 09:23-0400Body .21 kgChristy Massey AUTOMOTIVE DESIGN DRAFTER Work Phone: [facility] HospitalUxzispnuqi66-91-8512 09:23-0400Diastolic blood mm[Hg]Judith Laytonzpatrick AUTOMOTIVE DESIGN DRAFTER Work Phone: [facility] HospitalWevlpcuujc18-72-2991 09:23-0400Systolic blood drltmlzu648 mm[Hg]Judith Massey AUTOMOTIVE DESIGN DRAFTER Work Phone: [facility] HospitalUtqzaavvfc22-99-1451 13:26-0500Body udhyej069.5 Wesley Sood MD Work Phone: [facility]02-19-2024 13:26-0500 Body mass index (BMI) [Ratio]30.97 kg/q1YgbjuBaltazar Sood MD Work Phone: [facility]02-19-2024 13:26-0500 Body .4 kgBaltazar Sood MD Work Phone: [facility]02-15-2024 11:03-0500 Body jberqu408 cmSteven Rusher DPM Work Phone: [facility] HospitalBvlkvyaxyx20-68-9665 11:03-0500Body mass index (BMI) [Ratio]31.58 kg/a6Tvyoar Rusher DPM Work Phone: [facility] HospitalUhrqfxcqll28-69-2405 11:03-0500Body akztiu004.58 kgStmarty Sauceda DPM Work Phone: [facility] HospitalLzaomlowje92-48-7493 10:09-0500Diastolic blood zzzdxxpe62 mm[Hg][facility]ius [facility] [place] 687232-12-2023 10:09-0500Heart rate80 /minLucius CA [facility] [place] 687232-12-2023 10:09-0500Systolic blood csruvwht184 mm[Hg][facility]06-14-2023 09:55-0400Body iblfsl572.5 cmPamelmilka Mary Other [employer] Other 5-863171-22677380-31-0613 09:55-0400Body mass index (BMI) [Ratio] 28.62 kg/z2OswixkTrinh Hernandez Other [employer] Other 06-14-2023 09:55-0400Body vwzqlqjpuak61.4 [degF]Trinh Mary Other [employer] Other 2-221946-10620775-33-2603 09:55-0400Body vhsqve370.87 kgPariya Hernandez Other [employer] Other 06-14-2023 09:55-0400Respiratory rate18 /minTrinh Hernandez Other [employer] Other 06-14-2023 09:55-6857WwO5% (BldA) [Mass fraction]97 % Trinh Hernandez Other [employer] Other 10-11-2022 09:43-0400Blood Pressure LocationLucius CA [facility]-11-2022 09:43-0400Diastolic blood phplhqea91 mm[Hg][facility]ius [facility]10-11-2022 09:43-0400Heart rate63 /minLucius CA [facility]10-11-2022 09:43-0400Systolic blood jpuksljy451 mm[Hg]Lucius [facility] Encounters Encounter DateEncounter TypeCare ProviderFacilityStart: 64-11-9102doqhkhqbfv Lucius CAFacility: [place]: 08-27-2025 End: 77-42-0040Mokdkk outpatient visit 15 minutesEmsunny LUCAS Work Phone: [facility] CardiologyComment on above: Enlarged aorta (Primary Dx); Aneurysm of ascending aorta without rupture; Primary hypertensionStart: 08-27-2025 End: 69-32-5463chkvbbsldzZBXGE MICWater[facility] HospitalStart: 08-24-2025 End: 26-65-3169Wrqgodcxv encounterJennandres Nobles MAPJosh Physicians CardiologyStart: 08-23-2025 End: 77-86-6598Ncxdfa flowsheetSteven A Rusher DPM Work Phone: noTh[facility] PodiatryStart: 08-23-2025 End: 96-22-7875Zujylz flowsheetSteven A Rusher DPM Work Phone: noTh[facility] PodiatryStart: 08-23-2025 End: 73-11-0578Kgrieaa encounter procedureSteven A Rusher DPM Work Phone: noMS [facility]arro PodiatryComment on above:Dermatophytosis of nail (Primary Dx); Dystrophic nail; Pain around toenail, right foot; Pain around toenail, left footStart: 08-23-2025 End: 19-64-0092qjqufccxlsWDOENJ A RUSHERNot AvailableStart: 08-18-2025 End: 12-34-7503Ynjoes flowsheetChunwellspan gettysburg hospitalsivakumar Maharajbackus hospitalfinesse AUTOMOTIVE DESIGN DRAFTER Work Phone: no[facility] MedicineStart: 08-18-2025 End: 31-53-5577Bisiag flowsheetSeattle Va Medical Center Maciejcross junction AUTOMOTIVE DESIGN DRAFTER Work Phone: no[facility] MedicineStart: 08-18-2025 End: 27-88-4961Enynlz outpatient visit 15 minutesProvidence Healthsivakumar Kelly AUTOMOTIVE DESIGN DRAFTER Work Phone: noChildren[facility] MedicineComment on above:Viral upper respiratory infection (Primary Dx); Lower resp. tract infectionStart: 08-18-2025 End: 47-47-9398bviuqswobhWTQAAEOI SWINEHARTNot AvailableStart: 07-19-2025 End: 95-15-3609qdxgzbktuaGRGEL KAMPFERNot AvailableStart: 05-21-2025 End: 05-02-6154Lkargy flowsheetSteven A Rusher DPM Work Phone: [facility] PodiatryStart: 05-21-2025 End: 91-32-5870Jcuggt flowsheetSteven A Rusher DPM Work Phone: noTh[facility] PodiatryStart: 05-21-2025 End: 04-61-5796Rbnwhuv encounter procedureSteven A Rusher DPM Work Phone: noTh[facility] PodiatryComment on above:Dermatophytosis of nail (Primary Dx); Dystrophic nail; Pain around toenail, right foot; Pain around toenail, left footStart: 05-21-2025 End: 53-08-3339pyhzvgpxztRHPRXZ A RUSHERNot AvailableStart: 05-04-2025 End: 24-36-4030SyifmuFqhbmdmc Hohman MD Work Phone: noms FNR FMComment on above:Allergic conjunctivitis of both eyes and rhinitisStart: 04-12-2025 End: 99-66-7645mprijnztjsJSMCPER A FITZPATRICKNot AvailableStart: 04-12-2025 End: 64-23-5336lapeitogaoBAEMD KAMPFERNot AvailableStart: 04-10-2025 End: 86-34-9569Mzvexh-up encounterChristy A Massey AUTOMOTIVE DESIGN DRAFTER Work Phone: NOMS FNR FMStart: 04-09-2025 End: 67-66-8031Agqbbw flowsheetChristy A Massey AUTOMOTIVE DESIGN DRAFTER Work Phone: NOZM FNR FMStart: 04-09-2025 End: 99-85-8798Clggbl flowsheetChristy A Massey AUTOMOTIVE DESIGN DRAFTER Work Phone: noms FNR FMStart: 04-09-2025 End: 68-31-1269Cbncla outpatient visit 25 minutesChristy A Massey AUTOMOTIVE DESIGN DRAFTER Work Phone: noMS FNR FMComment on above:Primary hypertension (Primary Dx); Major depressive disorder, recurrent, moderate (HCC); Lung noduleStart: 04-09-2025 End: 80-89-9920ecpejcddhuKGLPFSJ A FITZPATRICKNot AvailableStart: 02-21-2025 End: 60-97-9279Kvyqqu flowsVenancio Lane AUTOMOTIVE DESIGN DRAFTER Work Phone: NOMS FNR FMStart: 02-21-2025 End: 79-37-6803Vudpub flowsheetSvivi Lane AUTOMOTIVE DESIGN DRAFTER Work Phone: noms FNR FMStart: 02-21-2025 End: 14-90-4590Pjhylq outpatient visit 15 minutesSarah Ariana AUTOMOTIVE DESIGN DRAFTER Work Phone: noMS FNR FMComment on above:Acute non-recurrent sinusitis, unspecified location (Primary Dx)Start: 02-21-2025 End: 57-17-0594fcyjdegtnsZYTJW KAMPFERNot AvailableStart: 02-19-2025 End: 32-78-8263Orfuvh flowsheetSteven A Rusher DPM Work Phone: NOMS PODIATRYStart: 02-19-2025 End: 88-02-4150Oabxbj flowsheetSteven A Rusher DPM Work Phone: NOMS PODIATRYStart: 02-19-2025 End: 14-55-7110Bpicidj encounter procedureSteven A Rusher DPM Work Phone: NOMS PODIATRYComment on above:Dermatophytosis of nail (Primary Dx); Dystrophic nail; Pain around toenail, right foot; Pain around toenail, left footStart: 02-19-2025 End: 30-25-6331gkxwwzeqyjIWJHUT A JERRELLHERNot AvailableStart: 02-16-2025 End: 67-88-0669Aoefpk Mihir Lane AUTOMOTIVE DESIGN DRAFTER Work Phone: NOMS FNR FMStart: 02-16-2025 End: 24-74-9774Jbuzoy Mihir Lane AUTOMOTIVE DESIGN DRAFTER Work Phone: NOMS FNR FMStart: 02-16-2025 End: 90-62-5855Xncqaf outpatient visit [address] AUTOMOTIVE DESIGN DRAFTER Work Phone: noms FNR FMComment on above:Acute non-recurrent sinusitis, unspecified location (Primary Dx)Start: 02-16-2025 End: 10-68-9582ilepsogqgeQLYNN KAMPFERNot AvailableStart: 12-07-2024 End: 33-58-4754Hympmt flowsheetPatricia A Tyler AUTOMOTIVE DESIGN DRAFTER Work Phone: NOMS FNR FMStart: 12-07-2024 End: 31-04-8019Sgihli flowsheetPatricia A Tyler AUTOMOTIVE DESIGN DRAFTER Work Phone: noms FNR FMStart: 12-07-2024 End: 22-48-3394owhadppanaYHNOZAXO A HACKENBURGNot AvailableStart: 12-07-2024 End: 88-92-2455Tqbjjh outpatient visit 15 minutesPajohnnycarolann Jarquin Tyler AUTOMOTIVE DESIGN DRAFTER Work Phone: noms FNR FMComment on above:Acute non-recurrent maxillary sinusitis (Primary Dx); Allergic rhinitis due to other allergic trigger, unspecified seasonalityStart: 12-05-2024 End: 86-75-9809Ziyswu Mihir Cantumeka AUTOMOTIVE DESIGN DRAFTER Work Phone: noms FNR FMStart: 12-05-2024 End: 31-62-4140Rwghhr Mihir Cantukristianmalgorzata AUTOMOTIVE DESIGN DRAFTER Work Phone: noms FNR FMStart: 12-05-2024 End: 29-37-3119Oflovl outpatient visit 25 minutesSaalba Cantumeka AUTOMOTIVE DESIGN DRAFTER Work Phone: noms FNR FMComment on above:Fever, unspecified fever cause (Primary Dx); Acute non-recurrent maxillary sinusitis; Pulmonary nodule; Primary hypertension ([facility]/HCC)Start: 12-05-2024 End: 01-84-8133bgspwcbtbjGWKHH KAMPFERNot AvailableStart: 11-27-2024 End: 21-51-0551kktefefrtaIQHCILQY ST. LUKES DES PERES HOSPITALIBProMemorial Hermann Southwest Hospitaltart: 11-20-2024 End: 67-91-0209xhjuyemurkCYBJEGBE SHIBProMemorial Hermann Southwest Hospitaltart: 11-20-2024 End: 22-28-9028cjbfbfrljdOEKOQ KEEFEFacility:EU SanduskyStart: 11-20-2024 End: 44-67-7999Qxbdpqa encounter procedureGregkristi CA [facility] Krunal Start: 11-06-2024 End: 73-32-7811Potpjr flowsheetSteven A Rusher DPM Work Phone: noms PODIATRYStart: 11-06-2024 End: 23-01-8120Hcggxk flowsheetSteven A Rusher DPM Work Phone: noms PODIATRYStart: 11-06-2024 End: 19-03-9272dmfvzmrrdeMAYHTC A RUSHERNot AvailableStart: 11-06-2024 End: 01-94-7092Fexdrve encounter procedureStekyle Sauceda DPM Work Phone: noms PODIATRYComment on above:Dermatophytosis of nail (Primary Dx); Dystrophic nail; Pain around toenail, right foot; Pain around toenail, left footStart: 10-09-2024 End: 25-09-7529Nyhqws flowsheetChristy A Massey AUTOMOTIVE DESIGN DRAFTER Work Phone: noms FNR FMStart: 10-09-2024 End: 90-56-9967Gxliig flowsheetChristy A Massey AUTOMOTIVE DESIGN DRAFTER Work Phone: noms FNR FMStart: 10-09-2024 End: 64-05-6444Ajlolx outpatient visit 25 minutesChristy A Massey AUTOMOTIVE DESIGN DRAFTER Work Phone: noms FNR FMComment on above:Primary hypertension (CMS/HCC) (Primary Dx); Enlarged aorta (CMS/HCC)Start: 10-09-2024 End: 75-10-0927yonfgfzucbZCAGADD A FITZPATRICKNot AvailableStart: 10-03-2024 End: 96-32-8573slnpbcrlbtANZKK KEEFEFacility:EU [place]uskyStart: 10-03-2024 End: 27-12-4312Zlpmosx encounter procedureLucius CA [facility] Krunal Start: 09-18-2024 End: 75-06-9305Ymqayp Marlon Scott AUTOMOTIVE DESIGN DRAFTER Work Phone: noms FNR FMStart: 09-18-2024 End: 87-75-0336Fqohka Marlon Scott AUTOMOTIVE DESIGN DRAFTER Work Phone: NOMS FNR FMStart: 09-18-2024 End: 84-46-1199Gmpenmg encounter procedureNancy Soctt AUTOMOTIVE DESIGN DRAFTER Work Phone: noms FNR FMComment on above:Primary hypertension (CMS/HCC) (Primary Dx); NETTE (obstructive sleep apnea); Enlarged aorta (CMS/HCC); Diverticular disease of colon; Benign prostatic hyperplasia with urinary frequency; Spinal stenosis of lumbar region with neurogenic claudication; Obesity (BMI 30.0-34.9); Prediabetes; Pipe smoker; Moderate episode of recurrent major depressive disorder (CMS/HCC); Medicare annual wellness visit, subsequent; Mixed hyperlipidemia (CMS/HCC); Recurrent major depressive disorder, in partial remission (HCC) (CMS/HCC); Screening PSA (prostate specific antigen); Visit for suture removalStart: 09-18-2024 End: 58-40-7295tkioshnlpnIOKRAMIOConcepcion Vaughan AvailableStart: 09-11-2024 End: 07-52-5232Ovvtqk outpatient visit 15 minutesGarth Molina MD Work Phone: [facility] CardiologyComment on above: Enlarged aorta (CMS-HCC) (Primary Dx); Mixed hyperlipidemiaStart: 09-11-2024 End: 90-16-8018hdaxfxhcuvUISIOJohn MOLINAOhioHealth Pickerington Methodist Hospitalca [facility] HospitalStart: 09-09-2024 End: 64-26-4292Tnltrpgiw department patient visitCHRISTY A FITZPATRICKProMedica Navarro HospitalStart: 09-08-2024 End: 72-28-1664Xiyiycsbn encounterDalia Jordan [facility] VALLEYProMedica Physicians CardiologyStart: 08-23-2024 End: 76-14-2988Bdxyvv flowsheetChristy A Massey AUTOMOTIVE DESIGN DRAFTER Work Phone: noms FNR FMStart: 08-23-2024 End: 68-14-9064Votxku flowsheetChristy A Massey AUTOMOTIVE DESIGN DRAFTER Work Phone: noms FNR FMStart: 08-23-2024 End: 74-61-3834Oolsnd outpatient visit 15 minutesChristy A Massey AUTOMOTIVE DESIGN DRAFTER Work Phone: noms FNR FMComment on above:Acute non-recurrent pansinusitis (Primary Dx)Start: 08-17-2024 End: 71-74-7135Pkswgeoq SupportWarren General Hospital NurseProMedica Physicians Cardiology Comment on above:Abnormal cardiovascular stress test (Primary Dx)Start: 08-14-2024 End: 08-72-0139UxfeqsTzgjdafo Hohman MD Work Phone: noms FNR FMComment on above:Primary hypertension (CMS/HCC)Start: 08-09-2024 End: 00-36-0143cbavzxzgebYGJBMercy Health Willard Hospital HospitalStart: 08-02-2024 End: 92-12-3685Dxcwaonel encounterRyvictorina MartinezSouthern Maine Health Care Physicians CardiologyComment on above:cardiac cathStart: 08-02-2024 End: 48-76-9466Nkzvdl outpatient visit 15 minutesPiper Knight MD Work Phone: [facility] CardiologyComment on above: Abnormal nuclear stress test (Primary Dx); Aneurysm of ascending aorta without rupture (CMS-HCC); Primary hypertension; PAD (peripheral artery disease) (CMS-HCC)Start: 08-01-2024 End: 40-95-4702Cntfmuozn encounterDalia Jordan CMAProMedica Physicians CardiologyStart: 07-27-2024 End: 42-68-1468Nwyl/qhp telephone evaluation 09-13 Latisha Acosta AUTOMOTIVE DESIGN DRAFTER Work Phone: [facility] 210Comment on above:Microangiopathy (CMS/HCC) (Primary Dx); Basal ganglia infarction (CMS/HCC); Lumbosacral radiculopathy at L5; LightheadednessStart: 07-24-2024 End: 08-70-0090Xlbllf flowsheetSteven A Rusher DPM Work Phone: noms PODIATRYStart: 07-24-2024 End: 55-56-1906Yatqsu flowsheetSteven A Rusher DPM Work Phone: noms PODIATRYStart: 07-24-2024 End: 35-83-0846Ndkwvhz encounter procedureSfreddie MAXM Work Phone: noms PODIATRYComment on above:Dermatophytosis of nail (Primary Dx); Dystrophic nail; Pain around toenail, right foot; Pain around toenail, left footStart: 07-20-2024 End: 69-02-9382Serur abstractingScanning Provider ExternalProMedica Physicians CardiologyStart: 07-04-2024 End: 29-85-0422Dtntzl flowsheetChristy A Massey AUTOMOTIVE DESIGN DRAFTER Work Phone: noMS FNR FMStart: 07-04-2024 End: 25-07-8133Lxvfzo flowsheetChristy Milka HargroveMassey AUTOMOTIVE DESIGN DRAFTER Work Phone: NOMS FNR FMStart: 07-04-2024 End: 55-93-6204Mpzbiw outpatient visit 25 minutesChsigifredo Massey AUTOMOTIVE DESIGN DRAFTER Work Phone: noMS FNR FMComment on above:Primary hypertension (CMS/HCC) (Primary Dx); Overweight (BMI 25.0-29.9); Abnormal cardiovascular stress testStart: 06-16-2024 End: 35-25-5438Dwlgex Adam Lane NP Work Phone: noms FNR FMComment on above:Primary hypertension (CMS/HCC)Start: 06-15-2024 End: 17-52-6129Fnievmmjg Josue Lane NP Work Phone: NOMS FNR FMStart: 06-14-2024 End: 47-68-9284Uemzcsvaq encounterSvivi Lane AUTOMOTIVE DESIGN DRAFTER Work Phone: noms FNR FMStart: 12-13-2023 End: 20-29-6741zghyvggyrcMITRG C RABBANILima City Hospital AmbulatoryStart: 12-13-2023 End: 92-31-3491Jrljtg consultation new/estab patient 40 Manuel Sood MD Work Phone: uh RustComment on above:Deviated septum (Primary Dx); Difficulty breathing; Hypertrophy of nasal turbinates; Nasal valve collapseStart: 72-09-9829Stmdxh flowsheetStekyle Jarquin Rusher DPM Work Phone: noms PODIATRYStart: 42-41-0819Xjshol flowsheet Ari A Rusher DPM Work Phone: noms PODIATRYStart: 12-09-2023 End: 76-16-6853Eygmoi outpatient visit 15 minutesStmarty Milka Komal DPM Work Phone: noms PODIATRYComment on above:Paronychia of great toe of left foot (Primary Dx); Onychocryptosis; Pain of left great toe; Difficulty walkingStart: 10-28-2023 End: 52-68-1311Quxupztzk Result EncounterMicheline Dior MD Work Phone: noms External Department UnsolicitedStart: 10-28-2023 End: 80-07-3229Aptmwxcmq Result EncounterMicheline Dior MD Work Phone: noms External Department UnsolicitedStart: 10-28-2023 End: 72-38-6998Sgefkrn encounter procedureMicheline Dior [facility] Start: 10-05-2023 End: 08-48-9079Ggxopxk encounter procedureLucius CA [facility] [place] Start: 04-07-2023 End: 26-30-2924mwsciuhyytFlsjkd Dymond Other [facility] Curiosidy Other Start: 38-49-0878Jsndry outpatient new 20 minutes [facility] ClydeStart: 41-99-9705Dlxjgyxmi for preprocedural laboratory examinationDR MICHELINE [facility] HospitalStart: 11-17-2022 End: 62-86-5262ristcmgpdkVQ MICHELINE DIORFacility:T7Wfbyb: 11-16-2022 End: 09-89-3565chwwtwskroZJ MICHELINEYAMILE BERGERSFacility:L5Ksmlu: 11-16-2022 End: 53-65-4614Jplgptcek for preprocedural laboratory examinationDR MICHELINE [facility] HOSPITALRhinaFacility:G3Eblog: 10-20-0928jsybylthwtUOCPBCleveland Clinic Union [facility] Start: 10-27-2022 End: 78-91-2863Vepvrguoch hospital visit by physicianMwh Additional Xray At Mw MWHZ LaboratoryComment on above:Primary hypertension; Mixed hyperlipidemia; Sleep apnea, unspecified type; Family history of coronary artery diseaseStart: 08-04-2022 End: 85-95-3831Rzmizpm encounter procedureLucius CA [facility] Start: 07-28-2022 End: 05-43-4001prrmgxigwgPE LUCIUS CAFacility:H1 Procedures DateProcedureProcedure DetailPerforming ClinicianStart: 69-39-2012Jvm routine ecg w/least 12 lds w/i&rKelsi Mici PA-C Work Phone: Start: 81-53-1569ZOFSRJ COVID-19/FLUAshenedelia Thomast AUTOMOTIVE DESIGN DRAFTER Work Phone: Start: 95-59-0536WAFESP COVID-19/FLUSaranoam Kamkristianfer AUTOMOTIVE DESIGN DRAFTER Work Phone: Start: 42-76-0930RyfqrsvswjCwitfcf COOK Start: 65-23-9341Oxofnb-up visitFollow-upLAURA L DEBENEDETTIStart: 04-71-6588HR MAXILLOFACIAL W/O CONTRASTHilary Noam Dior MD Work Phone: Start: 83-51-6215PmefhczkyxjOxdrrw Rusher DPM Work Phone: Start: 06-18-7140Hoodqsurpc exam chest 2 viewsHeath Latham MD Work Phone: Start: 06-35-4079Gukajplnuclwj metabolic panelHeath Latham MD Work Phone: Start: 81-05-1952Kyqgi panelGreg Rhina Latham MD Work Phone: Start: 61-41-9616ZKRPGJB FASTING?Heath Latham MD Work Phone: Start: 23-84-7568Iro routine ecg w/least 12 lds w/i&r Heath Latham MD Work Phone: Start: 80-53-0461Mrdhpqknawckul shockwave lithotripsy of calculus of kidneyHeathSRE [place] - 2 ColonoscopyAlliance HospitalSRE [place] - 2 Procedure on upper armLinn Creek WillKinn Media Plan of Treatment DateCare ActivityDetailAuthorStart: 25-56-5692LDaI,Tdap and Td Vaccines (3 - Td or Tdap)DTaP,Tdap and Td Vaccines (3 - Td or Tdap)[facility] SystemStart: 67-38-3055Hbwiylmal for malignant neoplasm of colonNOMS HealthcareStart: 36-63-0504Depodjuhv for malignant neoplasm of colonColonoscopyProMedica Health SystemStart: 18-00-8188Rdugy panelLipidsCOMMUNITY HEALTH SYSTEMSStart: 77-92-8371WSwB,Tdap and Td Vaccines (2 - Td or Tdap)DTaP,Tdap and Td Vaccines (2 - Td or Tdap)[facility] SystemStart: 20-80-3800LCkQ/Tdap/Td vaccine (2 - Td or Tdap)DTaP/Tdap/Td vaccine (2 - Td or Tdap)[facility] HEALTH SYSTEMSStart: 60-40-4721UMqK/Tdap/Td Vaccines (2 - Td or Tdap)DTaP/Tdap/Td Vaccines (2 - Td or Tdap)[facility] HospitalStart: 62-71-3634ZQF ( or age 60+ yrs) (1 - 1-dose 75+ series)RSV ( or age 60+ yrs) (1 - 1-dose 75+ series)[facility] SystemStart: 11-28-2025 End: 61-39-4232Tvnthnb encounter dapqepdqp61/04/2026 8:30 AM EST Procedure Visit [facility] [address] [place] [phone] Ari Sauceda, DPChalino [address] [place] [address] [facility] PodiatryStart: 11-27-2025 End: 75-11-4146Taqjm metabolic 2000 panel - Serum or PlasmaBasic Metabolic Panel Lab Routine Enlarged aorta Aneurysm of ascending aorta without rupture Expecte d: 11/27/2025 (Approximate), Expires: 08/27/2026ProSelect [facility] SystemComment on above:Expected: 11/27/2025 (Approximate), Expires: 08/27/2026Start: 11-27-2025 End: 18-23-5462NP Chest WO and CT angiogram Coronary arteries W contrast IVCT angiogram chest Imaging Routine Aneurysm of ascending aorta without rupture Expected: 11/27/2025(Approximate), Expires: 08/27/2026[facility] Work Phone: Comment on above:Expected: 11/27/2025 (Approximate), Expires: 08/27/2026Start: 10-10-2025 End: 77-95-5377Tjbsaav encounter procedureNOMS FNR FMStart: 11-25-2025Medicare Annual Wellness (AWV)Medicare Annual Wellness (AWV)[facility] HospitalStart: 38-72-4430Fdrwv BMI ScreeningAdult BMI ScreeningProSelect Medical [facility] SystemStart: 55-48-2131Fqnndjh ScreeningTobacco ScreeningProSelect [facility] Special[facility] SystemStart: 08-27-2025 End: 57-14-7801Mhmvnya encounter /03/2025 9:00 AM EST Office Visit [facility] [address] [place] [phone] Keli Jacobo, CLINICAL TRIALS MANAGER-CNC MACHINIST 2ND SHIFT [address] [place] [address] Daniel Rizzo PA-C [address] [place] [address] [facility] CardiologyStart: 08-23-2025 End: 72-95-9907Dqbqdzw encounter procedureNOMS [place]arro PodiatryComment on above: ArrivedStart: 08-18-2025 End: 72-14-5839Nlgulnb encounter ixojoztvz44/25/2025 9:00 AM EDT [facility] [address] [place] [phone] Nathalie Kelly NP [address] [place] [address] ArrivedNOChildren's Hospital & Medical Center MedicineComment on above:Arrived Start: 80-54-0947Vyrvn BMI ScreeningAdult BMI ScreeningRegency Hospital [facility] Start: 25-39-2980Fpzlwzo ScreeningTobacco ScreeningTrumbull Regional Medical Center SystemStart: 46-11-1722Yivbd BMI ScreeningAdult BMI ScreeningTrumbull Regional Medical Center SystemStart: 07-17-1563Cwvrskn ScreeningTobacco ScreeningTrumbull Regional Medical Center SystemStart: 15-86-2605TRPUJ-19 Vaccine ( season)COVID-19 Vaccine ( season)[facility]OM HealthcareStart: 51-34-3533Iaidkfnop vaccinationInfluenza Vaccine (#1)[facility]OM HealthcareStart: 00-52-2221Dxzbw BMI ScreeningAdult BMI Screening [facility] SystemStart: 05-21-2025 End: 56-93-3924Zkofstn encounter procedureNOMS PODIATRYComment on above: ArrivedStart: 04-12-2025 End: 51-52-1646Zcpdwzunjdmk / ancillary services ndjmuguweg19/19/2025 11:15 AM EDT Ancillary Procedure [facility] [address] [place] [address] [place] [address] EFWB FNR CTStart: 04-09-2025 End: 37-78-4230Piygqtiqrryap metabolic 2000 panel - Serum or PlasmaComprehensive metabolic panel Lab Routine Primary hypertension Expected: 04/09/2025 (Approximate), Expires: 04/09/2026[facility] Work Phone: Comment on above:Expected: 04/09/2025 (Approximate), Expires: 04/09/2026Start: 04-09-2025 End: 64-51-6441TS Chest W contrast IVCT chest w IV contrast Imaging Routine Lung nodule Expected: 04/09/2025, Expires: 04/09/2026NOMS HealthcareComment on above:Expected: 04/09/2025, Expires: 04/09/2026Start: 04-09-2025 End: 53-12-9535Ddjvelk encounter procedureNOMS FNR FMComment on above:Arrived Start: 54-85-4043CFvL/Tdap/Td Vaccines (3 - Td or Tdap)DTaP/Tdap/Td Vaccines (3 - Td or Tdap)[facility] HealthcareStart: 02-21-2025 End: 68-95-5177Rahqqnu encounter fdbjdkalq26/30/2025 1:30 PM EDT Office Visit [facility] [address] [place] [address] [phone], Sarah, NP [address] [place] [address] ArrivedNOMS FNR FMComment on above:ArrivedStart: 02-19-2025 End: 92-04-1394Wxmgmwd encounter procedureNOMS FH PODIATRYComment on above: ArrivedStart: 02-16-2025 End: 22-55-3261Xlgodxw encounter oynzruzhu84/25/2025 10:30 AM EDT Office Visit [facility] [address] [place] [phone], AUTOMOTIVE DESIGN DRAFTER [address] [place], [place] [phone] Vi FNR FMComment on above:ArrivedStart: 12-05-2024 End: 10-45-2999Xygfmkb encounter mhmwetjeh38/11/2025 10:00 AM EST Office Visit [facility] [address] [place] [phone], AUTOMOTIVE DESIGN DRAFTER [address] [place] [address] Vi FNR FMComment on above:ArrivedStart: 11-27-2024 End: 08-03-7708Sarcgffdtd includes GFR, serumCreatinine includes GFR, serum Lab Routine Aneurysm of ascending aorta without rupture ([facility]-HCC) Expected: 11/27/2024, Expires: 08/02/2025ProSelect [facility] SystemComment on above:Expected: 11/27/2024, Expires: 08/02/2025Start: 11-27-2024 End: 50-24-6929SK Chest WO and CT angiogram Coronary arteries W contrast IVCT angiogram chest Imaging Routine Abnormal nuclear stress test Expected: 11/27/2024, Expires: 08/02/2025ProKettering Health Prebleca Work Phone: Comment on above:Expected: 11/27/2024, Expires: 08/02/2025Start: 11-27-2024 End: 88-20-1815Utklaaj encounter vhbnoqxba46/03/2025 1:00 PM EST Office Visit [facility] [address] [place] [address] Francisco Moffett MD [address], [place] [address] NOMS JONEL NEURStart: 11-06-2024 End: 85-20-5130Oprdkms encounter /13/2025 8:30 AM EST Procedure Visit [facility] [address] [place] [address] Ari Sauceda, JEFFERY [address] [place] [address] NOMS PODIATRYStart: 10-09-2024 End: 36-89-3353Hrcshpv encounter procedureNOMS FNR FMComment on above:Arrived Start: 65-88-2730Pbaxijz ScreeningTobaalliancehealth [place] [facility] [place] ScreeningOhioHealth Pickerington Methodist Hospitalca [facility] SystemStart: 09-18-2024 End: 17-89-9842SAN W Auto Differential panel - BloodCBC and differential Lab Routine Primary hypertension (CMS/HCC) Expected: 09/18/2024 (Approximate), Expires: 09/18/2025NOMS HealthcareComment on above:Expected: 09/18/2024 (Approximate), Expires: 09/18/2025Start: 09-18-2024 End: 82-49-7493Lhgdzrktiealx metabolic 2000 panel - Serum or PlasmaComprehensive metabolic panel Lab Routine Primary hypertension (CMS/HCC) Prediabetes Expected: 09/18/2024 (Approximate), Expires: 09/18/2025NOMS HealthcareComment on above:Expected: 09/18/2024 (Approximate), Expires: 09/18/2025Start: 09-18-2024 End: 78-09-7839Zqdwuaouos A1c/Hemoglobin.total in BloodHemoglobin A1c Lab Routine Prediabetes Expected: 09/18/2024 (Approximate), Expires: 09/18/2025NOMS HealthcareComment on above:Expected: 09/18/2024 (Approximate), Expires: 09/18/2025Start: 09-18-2024 End: 13-92-7971Xfupd 1996 panel - Serum or PlasmaLipid panel Lab Routine Mixed hyperlipidemia (CMS/HCC) Expected: 09/18/2024 (Approximate), Expires:09/18/2025 [facility] Work Phone: Comment on above:Expected: 09/18/2024 (Approximate), Expires: 09/18/2025Start: 09-18-2024 End: 82-33-4907Vqkkukap specific Ag [Mass/volume] in Serum or PlasmaPSA Lab Routine Screening PSA (prostate specific antigen) Expected: 09/18/2024 (Approximate), Expires: 09/18/2025NOMS HealthcareComment on above:Expected: 09/18/2024 (Approximate), Expires: 09/18/2025Start: 09-18-2024 End: 37-28-4187Zcutqht encounter bxsavbsct72/25/2024 1:30 PM EST Office Visit [facility] [address] [place] [id number] [phone] Scott NP [address], [place] [id number] ArrivedN[facility] FMComment on above:ArrivedStart: 09-11-2024 End: 33-40-1618Khlgdjj encounter pqraswcnr86/18/2024 2:15 PM EST Office Visit [facility] [address] [place] [id number] Garth Molina MD [address] [place], [place] [address] [facility]: 11-06-2024Medicare Annual Wellness (AWV)Medicare Annual Wellness (AWV)[facility] HealthcareStart: 37-08-9217Ebpanawyq vaccinationInfluenza Vaccine (#1)[facility] HealthcareComment on above:Postponed from 06/25/2024 (Patient Refused)Start: 08-23-2024 End: 20-07-4006Fywckyj encounter imbawnhmd50/30/2024 2:00 PM EDT Office Visit [facility] [address] [place] [phone] [phone] Massey NP [address], [place] [id number] ArrivedNOMS FNR FMComment on above:ArrivedStart: 08-17-2024 End: 47-92-6643Dspnqqps Anifyea5908/17/2024 9:30 AM EDT Clinical Support [facility] [address] [place] [phone] [facility]iology[facility]: 08-09-2024 End: 54-77-4143Gntgzjujo to same day surgery leuvyd9208/09/2024 10:30 AM EDT - 08/09/2024 11:30 AM EDT Surgery [facility] - Cardiac Cath [address] [place] [phone] Daysi May MD [address] [place] [address] [facility] - Cardiac CathComment on above:Cardiac InvasiveStart: 08-09-2024 Subsequent hospital visit by eyrgizrcb73/16/2024 10:30 AM EDT Hospital Encounter [facility] - Cardiac Cath [address] [place] [phone] Daysi May MD [address] [place] [address] Abnormal cardiovascular stress testPaulding County Hospital - Cardiac CathComment on above:Abnormal cardiovascular stress testStart: 08-02-2024 End: 31-18-3979Zafbmxa encounter mcuycdkjh40/09/2024 1:30 PM EDT Office Visit [facility] [address] [place] [address] Piper Knight MD [address] [place] [address] [facility]iologyStart: 07-27-2024 End: 79-62-4440Uhiroir encounter ujveranqp94/03/2024 12:00 PM EDT Office Visit [facility] [address], [id number] Naomi Acosta, AUTOMOTIVE DESIGN DRAFTER [address] [address] [facility] 210Start: 07-24-2024 End: 21-35-4284Wpbtdpo encounter procedureNOMS FH PODIATRYComment on above: ArrivedStart: 07-17-2024 End: 57-33-7895Keccimh encounter vqtgjmtye36/23/2024 12:30 PM EDT Office Visit [facility] [address], [id number] Naomi Acosta, AUTOMOTIVE DESIGN DRAFTER [address] [place] [address], [place] [address] [facility] 210Start: 07-13-2024 End: 10-01-0732Mfravtz encounter zwaztfowo63/19/2024 11:30 AM EDT Office Visit [facility] [address] [place] [address], [phone] Naomi Acosta, AUTOMOTIVE DESIGN DRAFTER [address] [place] [address], [place] [address] [facility] 210Start: 07-04-2024 End: 18-17-2420Vufdhvs encounter procedureNOMS FNR FMComment on above:Arrived Start: 05-88-1430DEUSV-19 Vaccine ( season)COVID-19 Vaccine ( season)[facility] SystemStart: 51-49-4288CBAVD-19 Vaccine ( season)COVID-19 Vaccine ( season)[facility] Start: 54-73-7862Jxtornzxv vaccinationNOMS HealthcareStart: 01-03-2024 End: 94-16-9354Kgqctwh encounter rliccrlde42/11/2024 8:30 AM EDT Procedure Visit [facility] [address] [place] [phone] Ari Sauceda, JEFFERY [address] [place] [address] [facility] PODIATRYStart: 78-66-2257UFBZT-19 Vaccine ( season) COVID-19 Vaccine ()[facility]: 11-03-2022 End: 69-79-2104Qcszcax encounter yobmvuaub18/10/2023 Office Visit Cardiology Heath Latham MD [address] [place] [address] [place] [facility] SpecialistStart: 77-24-6090Fdwbjz Wellness Visit (AWV)Annual Wellness Visit (AWV)[facility]: 2016 Abdominal aortic aneurysm screeningAbdominal Aortic Aneurysm (AAA) Screening [facility]: 21-41-4132Orcq Risk ScreeningFall Risk ScreeningUNC Health [facility] - Valdesetart: 05-85-9751Lmzdyhkql for malignant neoplasm of colonBON [facility]: 57-15-9633Psbht BMI Follow Up PlanAdult BMI Follow Up PlanUNC Health Blue Ridge - Valdesetart: 46-84-1237Ycufgqakw C screeningBON [facility]: 70-54-6040Isyyvnrhun ScreenDepression ScreenBON [facility]: 96-13-2140Sdkyeowtrx ScreeningDepression ScreeningUNC Health Blue [facility] - Valdesetart: 52-28-1745Xjhtk panelLipid Panel [facility]: 1951Medicare Annual Wellness Visit [facility]: 17-57-0042Ebzkqkiwi for malignant neoplasm of colonNOMS Healthcare End: 46-59-4950Eusfh metabolic 2000 panel - Serum or PlasmaBasic Metabolic Panel Lab Routine Abnormal nuclear stress test 1 Occurrences starting 08/02/2024 unt il 08/02/2025[facility] RehabilitationComment on above:1 Occurrences starting 08/02/2024 until 08/02/2025asic metabolic 2000 panel - Serum or PlasmaBasic Metabolic Panel Lab Routine Abnormal nuclear stress test 08/02/2024 2:13 PM EDT [facility] [employer] [facility] End: 32-37-9257NUJ W Auto Differential panel - BloodCBC auto differential Lab Routine Abnormal nuclear stress test 1 Occurrences starting 08/02/2024 until 08/02/2025[facility] SystemComment on above:1 Occurrences starting 08/02/2024 until 5CBC W Auto Differential panel - BloodCBC auto differential Lab Routine Abnormal nuclear stress test 08/02/2024 2:13 PM EDT [facility] [employer] [facility] HospitalEKG 12 LeadEKG 12 Lead ECG Routine Primary hypertension Mixed hyperlipidemia Sleep apnea, unspecified type Family history of coronary artery disease 10/27/2022 8:40 AM [facility] Work Phone: End: 68-20-6214Tkvsrukdi [Mass/volume] in Serum or PlasmaMagnesium Lab Routine Primary hypertension 1 Occurrences starting 08/02/2024 until 08/02/2025[facility] SystemComment on above:1 Occurrences starting 08/02/2024 until 08/02/2025Magnesium [Mass/volume] in Serum or PlasmaMagnesium Lab Routine Primary hypertension 08/02/2024 2:13 PM [facility] Immunizations Immunization DateImmunizationNotesCare PvixcvubJapkkhzl86-04-9931nozezkebb, high dose seasonal, preservative-freeSeattle [facility] Swinehart AUTOMOTIVE DESIGN DRAFTER Work Phone: [facility]Po[facility] HospitalVwagbljwjg29-90-2599qokpmrs toxoid, reduced diphtheria toxoid, and acellular pertussis vaccine, adsorbedLadomonique Molina MD Work Phone: [facility]Po[facility] HospitalNnzuqtarhh96-94-1930yblzwktub virus vaccine, unspecified formulationHeartland LAS[facility] Center [facility] [place] 573700-04-2024influenza, high dose seasonal, preservative-freeDalia Morales MD Work Phone: [facility] HospitalBnjtmjdilh32-34-6291jooemysuu virus vaccine, unspecified formulationGregkristi CA [facility]10-09-2023Influenza, High-dose Seasonal, Quadrivalent, Preservative Free Ari Rusher DPM Work Phone: [facility]enterPointe HospitalVebsvkpagg96-05-7773Obqkslz SARS-CoV-2 50mcg/0.5mL BoosterSteven Rusher DPM Work Phone: [facility] HospitalNxbfctudlx06-57-5118EIAU-KrX-8 (COVID-19) mRNAMUL.ORD!i06151Czulmoi COOK [facility]09-22-2022influenza virus vaccine, unspecified formulationGregkristi WillKinn Media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 offending crypotic margins, colby-ungual debris, providing effective pressureand symptom relief, reducing shoe and digital trauma. This note was created with the assistance of a speech recognition program. While intending to generate a timely document that accurately reflects the content of the visit, no guarantee can be provided that every grammatical or spelling mistake has been or will be identified or corrected. Thank you for your understanding. Ari Sauceda DPM documented in this encounterSaint John's [facility] [id number] History of Present illness Narrative* Nathalie Kelly NP - 08/18/2025 9:00 AM EDT Subjective ?Quick Links Last Note in Specialty Snapshot Edit RFV/CC Edit Screenings Current Meds Patient ID: Edwin Rodriguez is a 75 y.o. male who presents for Nasal Congestion (Pt states been going on for a week in half. States yesterday he started getting body aches and fatigue. States he has beenaround ppl who had covid.). HPI History of Present Illness The patient presents for evaluation of upper respiratory infection. He has been experiencing sinus-related issues for the past month, which have escalated to severe congestion over the past week. Yesterday, he developed body aches and fatigue. He reports no cough butadmits to mild shortness of breath. He also mentions a sensation of fullness in his ears. He has not taken any medication for his current symptoms. He has previously used an albuterol inhaler. He typically requires antibiotics to manage his symptoms. He is currently on Singulair for allergies and takes a daily sinus medication. He has a history of sinus infections, occurring approximately twice annually. He has been in contact with individuals who tested positive for COVID-19. MEDICATIONS Singulair, Tylenol IMMUNIZATIONS He has received his influenza vaccine. ?Quick Review Review Full History Edit History Meds - Current Medications[1] --- PMH - Allergic rhinitis Asymmetrical hearing loss, left bronchitis hx, maillary sinusitis Dowd angioma, multiple Chronic otitis externa of both ears Circadian rhythm sleep disorder, unspecified type Diverticular disease Epicondylitis, lateral, right Gallstone Gingival and periodontal disease Hematoma history of colon polyp/tubular adenoma History of kidney stones Hypertension Lesion of hard palate Mixed hyperlipidemia Mixed hyperlipidemia Moderate major depression (HCC) Obesity Obstructive sleep apnea Pipe smoker Reactive airways dysfunction syndrome, mild intermittent, uncomplicated (HCC) Sciatica of right side Seborrheic dermatitis Sensorineural hearing loss (SNHL) of both ears Sinus infection Stress at home Vertigo Objective ?Quick Links Add Vitals Timeline (Adult) Labs Imaging Results Review Trend Vitals ?? Avoid pulling in long tables of results. Comment on relevant results to support your medical decision making. There were no vitals taken for this visit. Physical Exam Vitals reviewed. HENT: Head: Normocephalic and atraumatic. Right Ear: Tympanic membrane normal. Left Ear: Tympanic membrane normal. Nose: Mucosal edema, congestion and rhinorrhea present. Mouth/Throat: Mouth: Mucous membranes are moist. Pharynx: Posterior oropharyngeal erythema and postnasal drip present. Eyes: Pupils: Pupils are equal, round, and reactive to light. Cardiovascular: Rate and Rhythm: Normal rate and regular rhythm. Pulses: Normal pulses. Heart sounds: Normal heart sounds. Pulmonary: Effort: Pulmonary effort is normal. Breath sounds: Examination of the right-upper field reveals wheezing. Examination of the left-upperfield reveals wheezing. Examination of the right- middle field reveals wheezing. Examination of the left-middle field reveals wheezing. Examination of the right-lower field reveals wheezing. Examination of the left-lower field reveals wheezing. Wheezing present. Musculoskeletal: Cervical back: Neck supple. Skin: General: Skin is warm and dry. Capillary Refill: Capillary refill takes less than 2 seconds. Findings: No rash. Neurological: General: No focal deficit present. Mental Status: He is alert and oriented to person, place, and time. Physical Exam Fluid noted in the ears. Significant drainage noted in the mouth. Wheezing noted in the lungs. ?Quick Links Full Problem List Allergy Back Pain Cardiology Chronic Pain GI Hypertension Assessment & Plan Lower resp. tract infection Orders: albuterol HFA (Ventolin HFA) 90 mcg/act inhaler; Inhale 2 puffs every 4 (four) hours if needed for wheezing or shortness of breath predniSONE (Deltasone) 20 MG tablet; Take 1 tablet (20 mg) by mouth Daily for 10 days azithromycin (Zithromax) 250 MG tablet; Take 2 tablets (500 mg) by mouth Daily for 1 day, THEN 1 tablet (250 mg) Daily for 4 days. STATUS COVID-19/FLU Viral upper respiratory infection Assessment & Plan 1. Respiratory infection. Symptoms suggest a viral etiology, potentially COVID-19, given recent exposure to infected individuals. The presence of wheezing and his medical history warrant consideration of a prophylactic antibiotic to prevent further illness. A swab test will be conducted today. An albuterol inhaler and prednisone will be prescribed to alleviate bronchospasms and inflammation, respectively. He is advised against concurrent use of Motrin or ibuprofen with prednisone but may continue using Tylenol. [id number] Mucinex is recommended to aid in secretion mobilization. Adequate rest and increased fluid intake are also advised. Prescriptions will be sent to [facility] pharmacy. He is encouraged to receive the COVID-19 vaccine once his health improves. If there is no significant improvement by Wednesday or , he should contact the office. [1] Ascorbic Acid (vitamin C) 1000 MG tablet Aspirin (ASPIR-LOW PO) atorvastatin (Lipitor) 20 MG tablet cholecalciferol (Vitamin D-3) 25 MCG (1000 UT) tablet doxazosin (Cardura) 1 MG tablet fluticasone (Flonase) 50 MCG/ACT nasal spray hydroCHLOROthiazide (HYDRODiuril) 12.5 MG tablet losartan (Cozaar) 50 MG tablet metoprolol succinate XL (Toprol-XL) 25 MG 24 hr tablet montelukast (Singulair) 10 MG tablet Multiple Vitamin (Multi Vitamin) tablet tamsulosin (Flomax) 0.4 MG 24 hr capsule documented in this encounterSaint John's Aurora Community [id number] History of Present illness Narrative* Ari Jarquin Jerrell, DPM - 05/21/2025 8:30 AM EDT Images from the original note were not included. Subjective Patient ID: Edwin Rodriguez is a 75 y.o. male who presents for Nail care ( Edwin Rodriguez is a 75 y.o. male who presents for Toenail Care .SS: 12). HPI HPI Onychomycosis/Toenail Fungus: Symptomatic toenail deformity. Location: bilateral great toes remain problematic/symptomatic. Duration: fairly chronic toenail deformity, multiple years duration. Severity of symptoms: mild-moderate; impacting his ability to wear shoes comfortably. Onset: gradual, without known injury or trauma. Status: problematic/symptomatic over the past several weeks or so. Context: hard to trim, hard to reach; self-care is difficult, ineffective and not practical; increasing risk exposure. Family members unable to provide effective care. Characteristics: discolored, thickened, pain , pressure , elongated , /lifting , ingrowing, crusty; without bleeding or drainage. Relieved by: palliative care measures have provided favorable transient symptom relief. Previous Treatment: palliative care as noted. Risk factors: Medical comorbidities. Polypharmacy Aspirin therapy. mobility, flexibility and dexterity restraints. toenail deformity. Digital and/or shoe trauma and related complications. Aggravated by: shoe gear pressure, walking; snagging on clothing etc.. Medications Current Outpatient Medications: Ascorbic Acid (vitamin C) 1000 MG tablet, 1 (one) time each day at the same time., Disp: , Rfl: Aspirin (ASPIR-LOW PO), Take by mouth., Disp: , Rfl: atorvastatin (Lipitor) 20 MG tablet, Take 1 tablet (20 mg) by mouth in the morning., Disp: 90 tablet, Rfl: 3 cholecalciferol (Vitamin D-3) 25 MCG (1000 UT) tablet, Take 1,000 Units by mouth in the morning., Disp: , Rfl: doxazosin (Cardura) 1 MG tablet, Take 1 tablet (1 mg) by mouth at bedtime, Disp: 90 tablet, Rfl: 3 fluticasone (Flonase) 50 MCG/ACT nasal spray, Administer 1 spray into each nostril Daily, Disp: 16 g, Rfl: 1 hydroCHLOROthiazide (HYDRODiuril) 12.5 MG tablet, Take 1 tablet (12.5 mg) by mouth in the morning.,Disp: 90 tablet, Rfl: 3 losartan (Cozaar) 50 MG tablet, TAKE 1 TABLET BY MOUTH EVERY MORNING AND TAKE 1 TABLET BY MOUTH EVERY NIGHT AT BEDTIME, Disp: 180 tablet, Rfl: 1 metoprolol succinate XL (Toprol-XL) 25 MG 24 hr tablet, Take 1 tablet (25 mg) by mouth every other day Do not crush or chew., Disp: 45 tablet, Rfl: 1 montelukast (Singulair) 10 MG tablet, Take 1 tablet (10 mg) by mouth at bedtime, Disp: 90 tablet, Rfl: 1 Multiple Vitamin (Multi Vitamin) tablet, 1 (one) time each day at the same time., Disp: , Rfl: tamsulosin (Flomax) 0.4 MG 24 hr capsule, Take 0.4 mg by mouth in the morning., Disp: , Rfl: Allergies Patient has no known allergies. Past Surgical History Past Surgical History: Procedure Laterality Date COLONOSCOPY 07/31/2005 [facility] COLONOSCOPY 02/27/2016 colonoscopy, polyp, tubular adenoma, diverticulosis/to repeat 5 yrs /[facility] COLONOSCOPY 2022 CT ANGIOGRAM HEART CORONARY 11/27/2024 CT ANGIOGRAM TAVR 11/27/2024 LITHOTRIPSY x3 LITHOTRIPSY 08/2021 LITHOTRIPSY 2020 MR ANGIOGRAM HEAD W AND WO IV CONTRAST 01/27/2024 MR ANGIOGRAM HEAD W AND WO IV CONTRAST 01/27/2024 [facility] MR MR ANGIOGRAM NECK W AND WO IV CONTRAST 01/27/2024 MR ANGIOGRAM NECK W AND WO IV CONTRAST 01/27/2024 [facility] MR NASAL SEPTUM SURGERY 1981 OTHER SURGICAL HISTORY 1980 nasoseptoplasty without graft PALATE SURGERY 11/17/2022 r/o palate lesion, Timmis ND UPPER ARM/ELBOW SURGERY UNLISTED Left ARM SURGERY Family History Family History Problem Relation Name Age of Onset Hypertension Mother mejia Heart disease Mother mejia Coronary artery disease Mother mejia Dementia Mother mejia Stroke Father cameron Heart disease Father cameron Hypertension Father cameron Urolithiasis Brother nanda 3 brothers Hypertension Brother nanda Diabetes Brother nanda No Known Problems Daughter Objective General Examination: GENERAL EXAMINATION: Alert and oriented. Pleasant disposition. Vascular: DORSALIS PEDIS PULSE: 2/4, bilaterally. POSTERIOR TIBIAL PULSE: 1/4, bilaterally. TEMPERATURE GRADIENT: warm to warm. EDEMA: unremarkable for ankle edema. CAPILLARY FILLING TIME(sec): capillary fill intact bilateral digits less than 3 secs. Neurologic: SHARP SENSATION: tactile and light touch sensation intact. Dermatologic: SKIN FINDINGS: skin turgor is good. HYPERKERATOSIS: no forefoot or digital discrete keratotic lesions are noted. NAIL PATHOLOGY: Bilateral great toes: Stable DSO/pincer toenail deformity: Toenail dystrophy, thickening, discoloration, elongation, crumbly texture; the margins are incurvated/cryptotic, non-inflamed with periungual hyperkeratotic debris; without drainage. 2nd and 3rd digits bilateral: Stable, mild DSO deformity. INGROWN NAIL PATHOLOGY: bilateral great toes as noted. INTERDIGITAL MACERATION: clean, dry, non-inflamed. ULCER: no sign of ulceration or open wound. SKIN MYCOSIS: absent. Orthopedic: JOINT RANGE OF MOTION: functional but limited ankle and subtalar joint range of motion. Functional first MTP joint range of motion. DEFORMITIES: mild HAV deformity bilateral; flexible and reducible. Radiology: Assessment/Plan Symptomatic DSO/cryptosis bilateral great toes Plan: Notes: remains well satisfied with conservative and palliative care measures; again indicated. Patient expresses no interest in oral therapy (potential risk profile). Content to continue use of vinegar and/or Listerine as directed followed by topical anti-fungal of choice; again suggested Formula 7; advised as to limited efficacy; compliance is encouraged. Hygiene and skin care measures discussed as able to do so. Continue cuticle massage as able to do so. Procedure: Toenail Debridement: Aseptic technique: power/manual instrumentation: onychodebridement length and thickness, curretage of offending crypotic margins, colby-ungual debris, providing effective pressureand symptom relief, reducing shoe and digital trauma. This note was created with the assistance of a speech recognition program. While intending to generate a timely document that accurately reflects the content of the visit, no guarantee can be provided that every grammatical or spelling mistake has been or will be identified or corrected. Thank you for your understanding. Ari Sauceda DPM documented in this [facility]07-28-2025 Instructions* Patient Instructions* Ari Sauceda DPM - 05/21/2025 8:30 AM EDT Topical care measures as noted documented in this [facility]06-17-2025 Telephone encounter Note* Telephone Encounter - Rivas Guzman - 04/10/2025 9:42 AM EDT Will be here morning for A1c [facility] [id number] Miscellaneous Notes* Telephone Encounter - Rivas Guzman - 04/10/2025 9:42 AM EDT Will be here morning for A1c * Telephone Encounter - Dalia Lunsford MA - 04/10/2025 9:24 AM EDT LMOM letting pt know he needs to stop in for for an A1c nurse visit. * Telephone Encounter - Dalia Lunsford MA - 04/10/2025 9:24 AM EDT ----- Message from Judith Massey sent at 04/10/2025 9:06 AM EDT ----- Have patient stop by office to check [email or web address] ----- Message ----- From: Interface, [employer] Lab Results In Sent: 04/09/2025 5:04 PM EDT To: Judith Massey NP * Result Encounter Note - Judith Massey NP - 04/10/2025 9:06 AM EDT Have patient stop by office to check hgba1c documented in this encounterSaint John's [facility] [id number] Telephone encounter Note* Telephone Encounter - Dalia Lunsford MA - 04/10/2025 9:24 AM EDT LMOM letting pt know he needs to stop in for for an A1c nurse visit. [facility] Work Phone: [phone] 186-769906-17-2025 Telephone encounter Note* Telephone Encounter - Dalia Lunsford MA - 04/10/2025 9:24 AM EDT ----- Message from Judith Massey sent at 04/10/2025 9:06 AM EDT ----- Have patient stop by office to check hgba1c ----- Message ----- From: Interface, [facility] Results In Sent: 04/09/2025 5:04 PM EDT To: Judith Massey NP [facility] [id number] Progress note* Result Encounter Note - Judith Massey NP - 04/10/2025 9:06 AM EDT Have patient stop by office to check hgba1c [facility] [id number] History of Present illness Narrative* Judiht Massey NP - 04/09/2025 8:00 AM EDT Images from the original note were not included. Angel Rodriguez is a 74 y.o. male presents with chief complaint of Medicare Annual Wellness Visit Subsequent HPI: HPI Over the past 2 weeks, how often have you been bothered by any of the following problems? Little interest or pleasure in doing things: Not at all Feeling down, depressed, or hopeless: Not at all Patient Health Questionnaire-2 Score: 0 Simpson Fall Risk History of Falling, Immediate or Within 3 Months: No Secondary Diagnosis: No Ambulatory Aid: Walks without aid/bedrest/nurse assist Intravenous Therapy/Heparin Lock: No Gait/Transferring: Normal/bedrest/immobile Mental Status: Oriented to own ability Simpson Fall Risk Score: 0 Health Risk Assessment Form Do you need help eating, bathing, using the toilet, dressing, or getting around your home?: No Can you prepare your own meals?: Yes Can you do your own housework without help?: Yes Can you shop for groceries or clothes without help?: Yes Do you exercise for about 20 minutes 3 or more days a week?: No How confident are you that you can control and manage most of your health problems?: Very confident Can you mange your money, credit cards and accounts, pay bills and taxes?: Yes Vision Screening: Yes, no gross abnormalities Hearing Screening: Yes, no gross abnormalities Cognitive Screening Self Assessment: No overt cognitive deficiency is apparent by direct observation Pain Assessment Pain Score: 3 SUBJECTIVE: MEDICATIONS: Current Outpatient Medications Medication Instructions Ascorbic Acid (vitamin C) 1000 MG tablet Every 24 hours Aspirin (ASPIR-LOW PO) Take by mouth. atorvastatin (LIPITOR) 20 mg, Oral, Every morning cholecalciferol (VITAMIN D-3) 1,000 Units, Daily doxazosin (CARDURA) 1 mg, Oral, Nightly fluticasone (Flonase) 50 MCG/ACT nasal spray 1 spray, Each Nostril, Daily hydroCHLOROthiazide (HYDRODIURIL) 12.5 mg, Oral, Every morning losartan (Cozaar) 50 MG tablet TAKE 1 TABLET BY MOUTH EVERY MORNING AND TAKE 1 TABLET BY MOUTH EVERY NIGHT AT BEDTIME metoprolol succinate XL (TOPROL-XL) 25 mg, Oral, Every other day, Do not crush or chew. montelukast (SINGULAIR) 10 mg, Oral, Nightly Multiple Vitamin (Multi Vitamin) tablet Every 24 hours tamsulosin (FLOMAX) 0.4 mg, Daily ALLERGIES: No Known Allergies SURGICAL HISTORY: Past Surgical History: Procedure Laterality Date COLONOSCOPY 07/31/2005 [facility] COLONOSCOPY 02/27/2016 colonoscopy, polyp, tubular adenoma, diverticulosis/to repeat 5 yrs /[facility] COLONOSCOPY 2022 CT ANGIOGRAM HEART CORONARY 11/27/2024 CT ANGIOGRAM TAVR 11/27/2024 LITHOTRIPSY x3 LITHOTRIPSY 08/2021 LITHOTRIPSY 2020 MR ANGIOGRAM HEAD W AND WO IV CONTRAST 01/27/2024 MR ANGIOGRAM HEAD W AND WO IV CONTRAST 01/27/2024 [facility] MR MR ANGIOGRAM NECK W AND WO IV CONTRAST 01/27/2024 MR ANGIOGRAM NECK W AND WO IV CONTRAST 01/27/2024 [facility] MR NASAL SEPTUM SURGERY 1981 OTHER SURGICAL HISTORY 1981 nasoseptoplasty without graft PALATE SURGERY 11/17/2022 r/o palate lesion, [facility] [place] UPPER ARM/ELBOW SURGERY UNLISTED Left ARM SURGERY FAMILY HISTORY: Family History Problem Relation Name Age of Onset Hypertension Mother mejia Heart disease Mother mejia Coronary artery disease Mother mejia Dementia Mother mejia Stroke Father cameron Heart disease Father cameron Hypertension Father cameron Urolithiasis Brother nanda 3 brothers Hypertension Brother nanda Diabetes Brother nanda No Known Problems Daughter SOCIAL HISTORY: Social History Tobacco Use Smoking status: Former Types: Pipe Quit date: 2020 Years since quittin.4 Smokeless tobacco: Never Vaping Use Vaping status: Never Used Substance Use Topics Alcohol use: Yes Alcohol/week: 7.0 standard drinks of alcohol Types: 7 Standard drinks or equivalent per week Comment: caffeine intake: 1-2 cups daily Drug use: Never Depression: Not at risk (09/18/2024) PHQ-2 PHQ-2 Score: 0 REVIEW OF SYMPTOMS: Review of Systems Constitutional: Negative for fatigue. HENT: Negative. Respiratory: Negative. Negative for cough, shortness of breath and wheezing. Cardiovascular: Negative for chest pain and palpitations. Gastrointestinal: Negative. Genitourinary: Negative. Skin: Negative. Neurological: Negative. Psychiatric/Behavioral: Negative. OBJECTIVE: Visit Vitals Smoking Status Former Physical Exam Vitals and nursing note reviewed. Cardiovascular: Rate and Rhythm: Normal rate and regular rhythm. Pulses: Normal pulses. Heart sounds: Normal heart sounds. Pulmonary: Effort: Pulmonary effort is normal. Breath sounds: Normal breath sounds. Abdominal: General: Abdomen is flat. Bowel sounds are normal. Palpations: Abdomen is soft. Musculoskeletal: General: Normal range of motion. Cervical back: Normal range of motion and neck supple. Skin: General: Skin is warm and dry. Neurological: General: No focal deficit present. Mental Status: He is oriented to person, place, and time. ASSESSMENT AND PLAN: Assessment/Plan Diagnoses and all orders for this visit: Primary hypertension -stable continue on current medications. - Comprehensive metabolic panel; Future Major depressive disorder, recurrent, moderate (HCC)-stable Lung nodule-recheck in November 2025 - CT chest w IV contrast; Future No follow-ups on file. documented in this encounterSaint [facility] [id number] History of Present illness Narrative* Stella Lane NP - 02/21/2025 1:30 PM EDT Images from the original note were not included. Angel Rodriguez is a 74 y.o. male presents with chief complaint of Follow-up HPI: HPI History of Present Illness The patient presents for evaluation of congestion. A slight improvement in his condition is reported, although congestion, night sweats, and a persistent cough continue to be experienced. Last night, night sweats were particularly severe. He is currently on an antibiotic regimen, which is due to on Wednesday. Additionally, Flonase and an kenu-vzf-debjnje antihistamine, specifically a Claritin substitute, are being used as part of the treatment plan. SUBJECTIVE: MEDICATIONS: Current Outpatient Medications Medication Instructions amoxicillin-clavulanate (Augmentin) 875-125 MG tablet 875 mg, Oral, 2 times daily Ascorbic Acid (vitamin C) 1000 MG tablet Every 24 hours Aspirin (ASPIR-LOW PO) Take by mouth. atorvastatin (LIPITOR) 20 mg, Oral, Every morning cholecalciferol (VITAMIN D-3) 1,000 Units, Daily doxazosin (CARDURA) 1 mg, Oral, Nightly fluticasone (Flonase) 50 MCG/ACT nasal spray 1 spray, Each Nostril, Daily hydroCHLOROthiazide (HYDRODIURIL) 12.5 mg, Oral, Every morning losartan (Cozaar) 50 MG tablet TAKE 1 TABLET BY MOUTH EVERY MORNING AND TAKE 1 TABLET BY MOUTH EVERY NIGHT AT BEDTIME metoprolol succinate XL (TOPROL-XL) 25 mg, Oral, Every other day, Do not crush or chew. montelukast (SINGULAIR) 10 mg, Oral, Nightly Multiple Vitamin (Multi Vitamin) tablet Every 24 hours tamsulosin (FLOMAX) 0.4 mg, Daily I have reviewed and reconciled the history and medication list with the patient today. REVIEW OF SYMPTOMS: Review of Systems OBJECTIVE: Visit Vitals BP 128/78 Pulse 88 Temp 98.8 F Resp 18 Ht 6' 2 Wt 247 lb SpO2 96% BMI 31.71 kg/m Smoking Status Former BSA 2.42 m Physical Exam Vitals reviewed. HENT: Head: Normocephalic and atraumatic. Right Ear: A middle ear effusion is present. Left Ear: A middle ear effusion is present. Nose: Congestion and rhinorrhea present. Right Turbinates: Swollen. Left Turbinates: Swollen. Mouth/Throat: Mouth: Mucous membranes are moist. Pharynx: Postnasal drip present. Eyes: Pupils: Pupils are equal, round, and reactive to light. Cardiovascular: Rate and Rhythm: Normal rate and regular rhythm. Pulses: Normal pulses. Heart sounds: Normal heart sounds. Pulmonary: Effort: Pulmonary effort is normal. Breath sounds: Normal breath sounds. Musculoskeletal: Cervical back: Normal range of motion and neck supple. Skin: General: Skin is warm and dry. Capillary Refill: Capillary refill takes less than 2 seconds. Findings: No rash. Neurological: General: No focal deficit present. Mental Status: He is alert and oriented to person, place, and time. ASSESSMENT AND PLAN: Assessment/Plan Diagnoses and all orders for this visit: Acute non-recurrent sinusitis, unspecified location -visible improvement since last visit. Continue antibiotics as prescribed. Can increase flonase to BID for a few days. documented in this encounterSaint [facility] [id number] History of Present illness Narrative* Ari Sauceda DPM - 02/19/2025 8:30 AM EDT Images from the original note were not included. Subjective Patient ID: Edwin Rodriguez is a 74 y.o. male who presents for Toenail Care (Pt is here today for nail care, Rt hallux is starting to become painful for him/SS: 12). HPI HPI Onychomycosis/Toenail Fungus: Symptomatic toenail deformity. Location: bilateral great toes remain problematic/symptomatic. Duration: fairly chronic toenail deformity, multiple years duration. Severity of symptoms: mild-moderate; impacting his ability to wear shoes comfortably. Onset: gradual, without known injury or trauma. Status: problematic/symptomatic over the past several weeks or so. Context: hard to trim, hard to reach; self-care is difficult, ineffective and not practical; increasing risk exposure. Family members unable to provide effective care. Characteristics: discolored, thickened, pain , pressure , elongated , /lifting , ingrowing, crusty; without bleeding or drainage. Relieved by: palliative care measures have provided favorable transient symptom relief. Previous Treatment: palliative care as noted. Risk factors: Medical comorbidities. Polypharmacy Aspirin therapy. mobility, flexibility and dexterity restraints. toenail deformity. Digital and/or shoe trauma and related complications. Aggravated by: shoe gear pressure, walking; snagging on clothing etc.. Medications Current Outpatient Medications: amoxicillin-clavulanate (Augmentin) 875-125 MG tablet, Take 1 tablet (875 mg) by mouth in the morning and 1 tablet (875 mg) before bedtime. Do all this for 7 days., Disp: 14 tablet, Rfl: 0 Ascorbic Acid (vitamin C) 1000 MG tablet, 1 (one) time each day at the same time., Disp: , Rfl: Aspirin (ASPIR-LOW PO), Take by mouth., Disp: , Rfl: atorvastatin (Lipitor) 20 MG tablet, take 1 tablet by mouth every morning, Disp: 90 tablet, Rfl: 3 cholecalciferol (Vitamin D-3) 25 MCG (1000 UT) tablet, Take 1,000 Units by mouth in the morning., Disp: , Rfl: doxazosin (Cardura) 1 MG tablet, Take 1 tablet (1 mg) by mouth at bedtime, Disp: 90 tablet, Rfl: 3 fluticasone (Flonase) 50 MCG/ACT nasal spray, Administer 1 spray into each nostril Daily, Disp: 16 g, Rfl: 1 hydroCHLOROthiazide (HYDRODiuril) 12.5 MG tablet, Take 1 tablet (12.5 mg) by mouth in the morning.,Disp: 90 tablet, Rfl: 3 losartan (Cozaar) 50 MG tablet, TAKE 1 TABLET BY MOUTH EVERY MORNING AND TAKE 1 TABLET BY MOUTH EVERY NIGHT AT BEDTIME, Disp: 180 tablet, Rfl: 1 metoprolol succinate XL (Toprol-XL) 25 MG 24 hr tablet, Take 1 tablet (25 mg) by mouth every other day Do not crush or chew., Disp: 45 tablet, Rfl: 1 montelukast (Singulair) 10 MG tablet, take 1 tablet by mouth every evening, Disp: 90 tablet, Rfl: 3 Multiple Vitamin (Multi Vitamin) tablet, 1 (one) time each day at the same time., Disp: , Rfl: tamsulosin (Flomax) 0.4 MG 24 hr capsule, Take 0.4 mg by mouth in the morning., Disp: , Rfl: Allergies Patient has no known allergies. Past Surgical History Past Surgical History: Procedure Laterality Date COLONOSCOPY 07/31/2005 [facility] COLONOSCOPY 02/27/2016 colonoscopy, polyp, tubular adenoma, diverticulosis/to repeat 5 yrs /[facility] COLONOSCOPY 2022 CT ANGIOGRAM HEART CORONARY 11/27/2024 CT ANGIOGRAM TAVR 11/27/2024 LITHOTRIPSY x3 LITHOTRIPSY 08/2021 LITHOTRIPSY 2020 MR ANGIOGRAM HEAD W AND WO IV CONTRAST 01/27/2024 MR ANGIOGRAM HEAD W AND WO IV CONTRAST 01/27/2024 [facility] MR MR ANGIOGRAM NECK W AND WO IV CONTRAST 01/27/2024 MR ANGIOGRAM NECK W AND WO IV CONTRAST 01/27/2024 [facility] MR NASAL SEPTUM SURGERY 1981 OTHER SURGICAL HISTORY 1980 nasoseptoplasty without graft PALATE SURGERY 11/17/2022 r/o palate lesion, [facility] UPPER ARM/ELBOW SURGERY UNLISTED Left ARM SURGERY Family History Family History Problem Relation Name Age of Onset Hypertension Mother mejia Heart disease Mother mejia Coronary artery disease Mother mejia Dementia Mother mejia Stroke Father cameron Heart disease Father cameron Hypertension Father cameron Urolithiasis Brother nanda 3 brothers Hypertension Brother nanda Diabetes Brother nanda No Known Problems Daughter Objective General Examination: GENERAL EXAMINATION: alert and oriented. Pleasant disposition. Vascular: DORSALIS PEDIS PULSE: 2/4, bilaterally. POSTERIOR TIBIAL PULSE: 1/4, bilaterally. TEMPERATURE GRADIENT: warm to warm. EDEMA: unremarkable for ankle edema. CAPILLARY FILLING TIME(sec): capillary fill intact bilateral digits less than 3 secs. Neurologic: SHARP SENSATION: tactile and light touch sensation intact. Dermatologic: SKIN FINDINGS: skin turgor is good. HYPERKERATOSIS: no forefoot or digital discrete keratotic lesions are noted. NAIL PATHOLOGY: Bilateral great toes: DSO/pincer toenail deformity: Toenail dystrophy, thickening, discoloration, elongation, crumbly texture; the margins are incurvated/cryptotic, non-inflamed with periungual hyperkeratotic debris; without drainage. 2nd and 3rd digits bilateral: Stable, mild DSO deformity. INGROWN NAIL PATHOLOGY: bilateral great toes as noted. INTERDIGITAL MACERATION: clean, dry, non-inflamed. ULCER: no sign of ulceration or open wound. SKIN MYCOSIS: absent. Orthopedic: JOINT RANGE OF MOTION: functional but limited ankle and subtalar joint range of motion. Functional first MTP joint range of motion. DEFORMITIES: mild HAV deformity bilateral; flexible and reducible. Radiology: Assessment/Plan Symptomatic DSO/cryptosis bilateral great toes Plan: Notes: remains well satisfied with conservative and palliative care measures; again indicated. Patient expresses no interest in oral therapy (potential risk profile). May continue use of vinegar and/or Listerine as directed followed by topical anti-fungal of choice;advised as to limited efficacy; compliance is encouraged. Hygiene and skin care measures discussed as able to do so. Continue cuticle massage as able to do so. Procedure: Toenail Debridement: Aseptic technique: power/manual instrumentation: onychodebridement length and thickness, curretage of offending crypotic margins, colby-ungual debris, providing effective pressureand symptom relief, reducing shoe and digital trauma. This note was created with the assistance of a speech recognition program. While intending to generate a timely document that accurately reflects the content of the visit, no guarantee can be provided that every grammatical or spelling mistake has been or will be identified or corrected. Thank you for your understanding. Ari Sauceda DPM documented in this [place] [id number] Instructions* Patient Instructions* Ari Sauceda DPM - 02/19/2025 8:30 AM EDT As noted documented in this [facility]04-25-2025 History of Present illness Narrative* Stella Lane NP - 02/16/2025 10:30 AM EDT Images from the original note were not included. Angel Rodriguez is a 74 y.o. male presents with chief complaint of Cough HPI: HPI History of Present Illness The patient presents for evaluation of a head cold, sinus, or allergy. Nasal congestion and postnasal drainage are reported, which are attributed to a head cold, sinus issue, or allergy. Symptoms began approximately 3 to 4 days ago. Self-medication with DayQuil and Mucinex has been utilized. No febrile episodes are reported, but mild coughing and pain are acknowledged. Wheezing has not been noticed, although occasional coughing fits occur. SUBJECTIVE: MEDICATIONS: Current Outpatient Medications Medication Instructions Ascorbic Acid (vitamin C) 1000 MG tablet Every 24 hours Aspirin (ASPIR-LOW PO) Take by mouth. atorvastatin (LIPITOR) 20 mg, Oral, Every morning cholecalciferol (VITAMIN D-3) 1,000 Units, Daily doxazosin (CARDURA) 1 mg, Oral, Nightly fluticasone (Flonase) 50 MCG/ACT nasal spray Every 24 hours hydroCHLOROthiazide (HYDRODIURIL) 12.5 mg, Oral, Every morning losartan (Cozaar) 50 MG tablet TAKE 1 TABLET BY MOUTH EVERY MORNING AND TAKE 1 TABLET BY MOUTH EVERY NIGHT AT BEDTIME metoprolol succinate XL (TOPROL-XL) 25 mg, Oral, Every other day, Do not crush or chew. montelukast (SINGULAIR) 10 mg, Oral, Nightly Multiple Vitamin (Multi Vitamin) tablet Every 24 hours tamsulosin (FLOMAX) 0.4 mg, Daily I have reviewed and reconciled the history and medication list with the patient today. REVIEW OF SYMPTOMS: Review of Systems OBJECTIVE: Visit Vitals BP 138/80 Pulse 67 Temp 98.6 F Ht 6' 2 Wt 250 lb 9.6 oz SpO2 98% BMI 32.18 kg/m Smoking Status Former BSA 2.44 m Physical Exam Vitals reviewed. HENT: Head: Normocephalic and atraumatic. Right Ear: A middle ear effusion is present. Tympanic membrane is injected. Left Ear: A middle ear effusion is present. Tympanic membrane is injected. Nose: Congestion present. Right Turbinates: Swollen. Left Turbinates: Swollen. Right Sinus: Maxillary sinus tenderness and frontal sinus tenderness present. Left Sinus: Maxillary sinus tenderness and frontal sinus tenderness present. Mouth/Throat: Mouth: Mucous membranes are moist. Pharynx: Postnasal drip present. Eyes: Pupils: Pupils are equal, round, and reactive to light. Cardiovascular: Rate and Rhythm: Normal rate and regular rhythm. Pulses: Normal pulses. Heart sounds: Normal heart sounds. Pulmonary: Effort: Pulmonary effort is normal. Breath sounds: Examination of the left-middle field reveals wheezing. Wheezing present. Musculoskeletal: Cervical back: Normal range of motion and neck supple. Skin: General: Skin is warm and dry. Capillary Refill: Capillary refill takes less than 2 seconds. Findings: No rash. Neurological: General: No focal deficit present. Mental Status: He is alert and oriented to person, place, and time. ASSESSMENT AND PLAN: Assessment/Plan Diagnoses and all orders for this visit: Acute non-recurrent sinusitis, unspecified location - amoxicillin-clavulanate (Augmentin) 875-125 MG tablet; Take 1 tablet (875 mg) by mouth in the morning and 1 tablet (875 mg) before bedtime. Do all this for 7 days. - fluticasone (Flonase) 50 MCG/ACT nasal spray; Administer 1 spray into each nostril Daily -Take antibiotics as prescribed, do not stop early. May take tylenol/motrin OTC prn for pain/fever.Increase oral intake of fluids to thin secretions. Saline nasal spray. May use throat lozenges and warm salt water gargles to alleviate sore throat. Humidified air. If symptoms do not improve in 48 hrs after starting antibiotics instructed patient to come to office for further evaluation. documented in this encounterSaint [facility] [id number] History of Present illness Narrative* Nancy Scott NP - 12/07/2024 11:00 AM EST Images from the original note were not included. Angel Rodriguez is a 74 y.o. male presents with chief complaint of Cough HPI: HPI History of Present Illness The patient presents for evaluation of a cough. He was previously seen on Wednesday, during which he was prescribed an antibiotic regimen. He reported intermittent improvement with the antibiotics. However, he experienced a significant increase in coughing late yesterday, which persisted into this morning. This episode was severe enough to induce hemoptysis, characterized by bright red blood, occurring twice. He does not utilize a humidifier buthas been using a nasal spray. MEDICATIONS Current: Rosa Foreman SUBJECTIVE: MEDICATIONS: Current Outpatient Medications Medication Instructions amoxicillin-clavulanate (Augmentin) 875-125 MG tablet 875 mg, Oral, 2 times daily Ascorbic Acid (vitamin C) 1000 MG tablet Every 24 hours Aspirin (ASPIR-LOW PO) Take by mouth. atorvastatin (LIPITOR) 20 mg, Oral, Every morning cholecalciferol (VITAMIN D-3) 1,000 Units, Daily doxazosin (CARDURA) 1 mg, Oral, Nightly fluticasone (Flonase) 50 MCG/ACT nasal spray Every 24 hours hydroCHLOROthiazide (HYDRODIURIL) 12.5 mg, Oral, Every morning losartan (COZAAR) 50 mg, Oral, 2 times daily metoprolol succinate XL (TOPROL-XL) 25 mg, Oral, Every other day, Do not crush or chew. montelukast (SINGULAIR) 10 mg, Oral, Nightly Multiple Vitamin (Multi Vitamin) tablet Every 24 hours tamsulosin (FLOMAX) 0.4 mg, Daily I have reviewed and reconciled the history and medication list with the patient today. REVIEW OF SYMPTOMS: Review of Systems Constitutional: Positive for fatigue. Negative for fever. HENT: Positive for congestion, postnasal drip, rhinorrhea and sore throat. Respiratory: Positive for cough and wheezing. Negative for shortness of breath. Cardiovascular: Negative for chest pain, palpitations and leg swelling. Gastrointestinal: Negative for abdominal pain. OBJECTIVE: Visit Vitals BP 124/78 Pulse (!) 112 Temp 99.4 F Ht 6' 2 Wt 251 lb 3.2 oz SpO2 95% BMI 32.25 kg/m Smoking Status Former BSA 2.44 m Physical Exam Vitals and nursing note reviewed. Constitutional: Appearance: Normal appearance. HENT: Head: Normocephalic and atraumatic. Right Ear: Tympanic membrane is injected. Left Ear: Tympanic membrane is injected. Nose: Congestion present. Mouth/Throat: Mouth: Mucous membranes are moist. Pharynx: Posterior oropharyngeal erythema present. Tonsils: No tonsillar exudate. Eyes: Extraocular Movements: Extraocular movements intact. Conjunctiva/sclera: Conjunctivae normal. Pupils: Pupils are equal, round, and reactive to light. Cardiovascular: Rate and Rhythm: Normal rate and regular rhythm. Heart sounds: Normal heart sounds. Pulmonary: Effort: Pulmonary effort is normal. Breath sounds: Normal breath sounds. Abdominal: General: Bowel sounds are normal. Palpations: Abdomen is soft. Musculoskeletal: Cervical back: Normal range of motion and neck supple. Lymphadenopathy: Cervical: No cervical adenopathy. Skin: General: Skin is warm and dry. Capillary Refill: Capillary refill takes less than 2 seconds. Neurological: Mental Status: He is alert and oriented to person, place, and time. ASSESSMENT AND PLAN: Assessment/Plan Diagnoses and all orders for this visit: Acute non-recurrent maxillary sinusitis Continue antibiotics as discussed. Assessment & Plan 1. Cough. The patient's lungs sound clear upon examination. The presence of bright red blood is likely due tothroat irritation, possibly exacerbated by the use of nasal spray, which can dry out mucous membranes. He is advised to continue his current antibiotic regimen and complete the course. Additionally, he should use steam therapy twice daily by running a hot shower and inhaling the steam in the bathroom to moisten the mucous membranes. Jyrh-bwz-bczljup medications such as DayQuil or NyQuil can be used as needed. documented in this encounterSaint [facility]'s [facility] [id number] History of Present illness Narrative* Stella Lane NP - 12/05/2024 10:00 AM EST Angel Rodriguez is a 74 y.o. male presents with chief complaint of URI HPI: HPI History of Present Illness The patient presents for evaluation of nasal congestion. He reports experiencing nasal congestion, which he describes as a sensation of his head being stuffed up. This symptom appears to radiate down into his chest, accompanied by a cough. He is not expectorating any sputum and does not report any episodes of wheezing or shortness of breath. Additionally, he mentions a mild sore throat but does not experience any severe coughing fits. These symptoms began on Wednesday. He has been self-medicating with NyQuil and a nasal spray. MEDICATIONS NyQuil SUBJECTIVE: MEDICATIONS: Current Outpatient Medications Medication Instructions Ascorbic Acid (vitamin C) 1000 MG tablet Every 24 hours Aspirin (ASPIR-LOW PO) Take by mouth. atorvastatin (LIPITOR) 20 mg, Oral, Every morning cholecalciferol (VITAMIN D-3) 1,000 Units, Daily doxazosin (CARDURA) 1 mg, Oral, Nightly fluticasone (Flonase) 50 MCG/ACT nasal spray Every 24 hours hydroCHLOROthiazide (HYDRODIURIL) 12.5 mg, Oral, Every morning losartan (COZAAR) 50 mg, Oral, 2 times daily metoprolol tartrate (LOPRESSOR) 12.5 mg, Every other day montelukast (SINGULAIR) 10 mg, Oral, Nightly Multiple Vitamin (Multi Vitamin) tablet Every 24 hours tamsulosin (FLOMAX) 0.4 mg, Daily REVIEW OF SYMPTOMS: Review of Systems Constitutional: Positive for fatigue. HENT: Positive for congestion, postnasal drip and sinus pressure. Negative for sore throat. Respiratory: Positive for cough. Negative for shortness of breath and wheezing. OBJECTIVE: Visit Vitals BP 128/82 (BP Location: Left arm, Patient Position: Sitting, BP Cuff Size: Large adult) Pulse 94 Temp 99.3 F (Tympanic) Ht 6' 2 Wt 253 lb 9.6 oz SpO2 95% BMI 32.56 kg/m Smoking Status Former BSA 2.45 m Physical Exam Vitals reviewed. Constitutional: General: He is not in acute distress. HENT: Head: Normocephalic and atraumatic. Right Ear: A middle ear effusion is present. Left Ear: A middle ear effusion is present. Nose: Congestion present. Right Turbinates: Swollen. Left Turbinates: Swollen. Right Sinus: Maxillary sinus tenderness present. No frontal sinus tenderness. Left Sinus: Maxillary sinus tenderness present. No frontal sinus tenderness. Mouth/Throat: Mouth: Mucous membranes are moist. Eyes: Pupils: Pupils are equal, round, and reactive to light. Cardiovascular: Rate and Rhythm: Normal rate and regular rhythm. Pulses: Normal pulses. Heart sounds: Normal heart sounds. Pulmonary: Effort: Pulmonary effort is normal. Breath sounds: Normal breath sounds. Musculoskeletal: Cervical back: Normal range of motion and neck supple. Right lower leg: No edema. Left lower leg: No edema. Lymphadenopathy: Cervical: No cervical adenopathy. Skin: General: Skin is warm and dry. Capillary Refill: Capillary refill takes less than 2 seconds. Findings: No rash. Neurological: General: No focal deficit present. Mental Status: He is alert and oriented to person, place, and time. ASSESSMENT AND PLAN: Assessment/Plan Diagnoses and all orders for this visit: Fever, unspecified fever cause - STATUS COVID-19/FLU Acute non-recurrent maxillary sinusitis - amoxicillin-clavulanate (Augmentin) 875-125 MG tablet; Take 1 tablet (875 mg) by mouth in the morning and 1 tablet (875 mg) before bedtime. Do all this for 7 days. -Take antibiotics as prescribed, do not stop early. May take tylenol/motrin OTC prn for pain/fever.Increase oral intake of fluids to thin secretions. Saline nasal spray. May use throat lozenges and warm salt water gargles to alleviate sore throat. Humidified air. If symptoms do not improve in 48 hrs after starting antibiotics instructed patient to come to office for further evaluation. Pulmonary nodule -will need annual imaging going further. He verbalizes understanding and is in agreement with plan Primary hypertension ([facility]) - metoprolol succinate XL (Toprol-XL) 25 MG 24 hr tablet; Take 1 tablet (25 mg) by mouth every other day Do not crush or chew. documented in this encounterSaint [facility]'s [facility] [id number] Hospital Discharge instructions Patient Education 11/20/2024 13:52:41 Benign Prostatic Hyperplasia Benign Prostatic Hyperplasia Benign prostatic hyperplasia (BPH) is an enlarged prostate gland that is caused by the normal agingprocess. The prostate may get bigger as a man gets older. The condition is not caused by cancer. The prostate is a walnut-sized gland that is involved in the production of semen. It is located in front of the rectum and below the bladder. The bladder stores urine. The urethra carries stored urine ou t of the body. An enlarged prostate can press on the urethra. This can make it harder to pass urine. The buildup of urine in the bladder can cause infection. Back pressure and infection may progress to bladder damage and kidney (renal) failure. What are the causes? This condition is part of the normal aging process. However, not all men develop problems from thiscondition. If the prostate enlarges away from the urethra, urine flow will not be blocked. If it enlarges toward the urethra and compresses it, there will be problems passing urine. What increases the risk? This condition is more likely to develop in men older than 50 years. What are the signs or symptoms? Symptoms of this condition include: Getting up often during the night to urinate. Needing to urinate frequently during the day. Difficulty starting urine flow. Decrease in size and strength of your urine stream. Leaking (dribbling) after urinating. Inability to pass urine. This needs immediate treatment. Inability to completely empty your bladder. Pain when you pass urine. This is more common if there is also an infection. Urinary tract infection (UTI). How is this diagnosed? This condition is diagnosed based on your medical history, a physical exam, and your symptoms. Tests will also be done, such as: A post-void bladder scan. This measures any amount of urine that may remain in your bladder after you finish urinating. A digital rectal exam. In a rectal exam, your health care provider checks your prostate by putting a lubricated, gloved finger into your rectum to feel the back of your prostate gland. This exam detects the size of your gland and any abnormal lumps or growths. An exam of your urine (urinalysis). A prostate specific antigen (PSA) screening. This is a blood test used to screen for prostate cancer. An ultrasound. This test uses sound waves to electronically produce a picture of your prostate gland. Your health care provider may refer you to a specialist in kidney and prostate diseases (urologist). How is this treated? Once symptoms begin, your health care provider will monitor your condition (active surveillance or watchful waiting). Treatment for this condition will depend on the severity of your condition. Treatment may include: Observation and yearly exams. This may be the only treatment needed if your condition and symptoms are mild. Medicines to relieve your symptoms, including: ?Medicines to shrink the prostate. ?Medicines to relax the muscle of the prostate. Surgery in severe cases. Surgery may include: ?Prostatectomy. In this procedure, the prostate tissue is removed completely through an open incision or with a laparoscope or robotics. ?Transurethral resection of the prostate (TURP). In this procedure, a tool is inserted through the opening at the tip of the penis (urethra). It is used to cut away tissue of the inner core of the prostate. The pieces are removed through the same opening of the penis. This removes the blockage. ?Transurethral incision (TUIP). In this procedure, small cuts are made in the prostate. This lessens the prostate's pressure on the urethra. ?Transurethral microwave thermotherapy (TUMT). This procedure uses microwaves to create heat. The heat destroys and removes a small amount of prostate tissue. ?Transurethral needle ablation (TUNA). This procedure uses radio frequencies to destroy and remove a small amount of prostate tissue. ?Interstitial laser coagulation (ILC). This procedure uses a laser to destroy and remove a small amount of prostate tissue. ?Transurethral electrovaporization (TUVP). This procedure uses electrodes to destroy and remove a small amount of prostate tissue. ?Prostatic urethral lift. This procedure inserts an implant to push the lobes of the prostate away from the urethra. Follow these instructions at home: Take smpk-uuy-ycrvjke and prescription medicines only as told by your health care provider. Monitor your symptoms for any changes. Contact your health care provider with any changes. Avoid drinking large amounts of liquid before going to bed or out in public. Avoid or reduce how much caffeine or alcohol you drink. Give yourself time when you urinate. Keep all follow-up visits. This is important. Contact a health care provider if: You have unexplained back pain. Your symptoms do not get better with treatment. You develop side effects from the medicine you are taking. Your urine becomes very dark or has a bad smell. Your lower abdomen becomes distended and you have trouble passing urine. Get help right away if: You have a fever or chills. You suddenly cannot urinate. You feel light-headed or very dizzy, or you faint. There are large amounts of blood or clots in your urine. Your urinary problems become hard to manage. You develop moderate to severe low back or flank pain. The flank is the side of your body between the ribs and the hip. These symptoms may be an emergency. Get help right away. Call 911. Do not wait to see if the symptoms will go away. Do not drive yourself to the hospital. Summary Benign prostatic hyperplasia (BPH) is an enlarged prostate that is caused by the normal aging process. It is not caused by cancer. An enlarged prostate can press on the urethra. This can make it hard to pass urine. This condition is more likely to develop in men older than 50 years. Get help right away if you suddenly cannot urinate. This information is not intended to replace advice given to you by your health care provider. Make sure you discuss any questions you have with your health care provider. Document Revised: 04/29/2022 Document Reviewed: 04/29/2022 [employer] Patient Education 2023 [employer]. Follow Up Care 10/03/2024 09:58:34 With:NORM JEFFERS, Lucius Moya, URL Address: [facility] [place] [id number]- When: Unknown [facility] [place] [id number] NotePatient Education Urology Benign Prostatic Hyperplasia Benign prostatic hyperplasia (BPH) is an enlarged prostate gland that is caused by the normal agingprocess. The prostate may get bigger as a man gets older. The condition is not caused by cancer. The prostate is a walnut-sized gland that is involved in the production of semen. It is located in front of the rectum and below the bladder. The bladder stores urine. The urethra carries stored urine ou t of the body. An enlarged prostate can press on the urethra. This can make it harder to pass urine. The buildup of urine in the bladder can cause infection. Back pressure and infection may progress to bladder damage and kidney (renal) failure. What are the causes? This condition is part of the normal aging process. However, not all men develop problems from thiscondition. If the prostate enlarges away from the urethra, urine flow will not be blocked. If it enlarges toward the urethra and compresses it, there will be problems passing urine. What increases the risk? This condition is more likely to develop in men older than 50 years. What are the signs or symptoms? Symptoms of this condition include: ??? Getting up often during the night to urinate. ??? Needing to urinate frequently during the day. ??? Difficulty starting urine flow. ??? Decrease in size and strength of your urine stream. ??? Leaking (dribbling) after urinating. ??? Inability to pass urine. This needs immediate treatment. ??? Inability to completely empty your bladder. ??? Pain when you pass urine. This is more common if there is also an infection. ??? Urinary tract infection (UTI). How is this diagnosed? This condition is diagnosed based on your medical history, a physical exam, and your symptoms. Tests will also be done, such as: ??? A post-void bladder scan. This measures any amount of urine that may remain in your bladder after you finish urinating. ??? A digital rectal exam. In a rectal exam, your health care provider checks your prostate by putting a lubricated, gloved finger into your rectum to feel the back of your prostate gland. This exam detects the size of your gland and any abnormal lumps or growths. ??? An exam of your urine (urinalysis). ??? A prostate specific antigen (PSA) screening. This is a blood test used to screen for prostate cancer. ??? An ultrasound. This test uses sound waves to electronically produce a picture of your prostate gland. Your health care provider may refer you to a specialist in kidney and prostate diseases (urologist). How is this treated? Once symptoms begin, your health care provider will monitor your condition (active surveillance or watchful waiting). Treatment for this condition will depend on the severity of your condition. Treatment may include: ??? Observation and yearly exams. This may be the only treatment needed if your condition and symptoms are mild. ??? Medicines to relieve your symptoms, including: ? Medicines to shrink the prostate. ? Medicines to relax the muscle of the prostate. ??? Surgery in severe cases. Surgery may include: ? Prostatectomy. In this procedure, the prostate tissue is removed completely through an open incision or with a laparoscope or robotics. ? Transurethral resection of the prostate (TURP). In this procedure, a tool is inserted through theopening at the tip of the penis (urethra). It is used to cut away tissue of the inner core of the prostate. The pieces are removed through the same opening of the penis. This removes the blockage. ? Transurethral incision (TUIP). In this procedure, small cuts are made in the prostate. This lessens the prostate's pressure on the urethra. ? Transurethral microwave thermotherapy (TUMT). This procedure uses microwaves to create heat. The heat destroys and removes a small amount of prostate tissue. ? Transurethral needle ablation (TUNA). This procedure uses radio frequencies to destroy and removea small amount of prostate tissue. ? Interstitial laser coagulation (ILC). This procedure uses a laser to destroy and remove a small amount of prostate tissue. ? Transurethral electrovaporization (TUVP). This procedure uses electrodes to destroy and remove a small amount of prostate tissue. ? Prostatic urethral lift. This procedure inserts an implant to push the lobes of the prostate awayfrom the urethra. Follow these instructions at home: ??? Take bqby-dnd-abeowrn and prescription medicines only as told by your health care provider. ??? Monitor your symptoms for any changes. Contact your health care provider with any changes. ??? Avoid drinking large amounts of liquid before going to bed or out in public. ??? Avoid or reduce how much caffeine or alcohol you drink. ??? Give yourself time when you urinate. ??? Keep all follow-up visits. This is important. Contact a health care provider if: ??? You have unexplained back pain. ??? Your symptoms do not get (more content not included)...[facility]01-13-2025 History of Present illness Narrative* Ari Sauceda, JEFFERY - 11/06/2024 8:30 AM EST Images from the original note were not included. Subjective Patient ID: Edwin Rodriguez is a 74 y.o. male who presents for Nail care (Edwin Rodriguez is a 74 y.o. malewho presents for Nail care. ). HPI HPI Onychomycosis/Toenail Fungus: Symptomatic toenail deformity. Location: bilateral great toes remain problematic/symptomatic. Duration: fairly chronic toenail deformity, multiple years duration. Severity of symptoms: mild-moderate; impacting his ability to wear shoes comfortably. Onset: gradual, without known injury or trauma. Status: problematic/symptomatic over the past several weeks or so. Context: hard to trim, hard to reach; self-care is difficult, ineffective and not practical; increasing risk exposure. Family members unable to provide effective care. Characteristics: discolored, thickened, pain , pressure , elongated , /lifting , ingrowing, crusty; without bleeding or drainage. Relieved by: palliative care measures have provided favorable transient symptom relief. Previous Treatment: palliative care as noted. Risk factors: Medical comorbidities. Polypharmacy Aspirin therapy. mobility, flexibility and dexterity restraints. toenail deformity. Digital and/or shoe trauma and related complications. Aggravated by: shoe gear , pressure , walking; snagging on clothing etc.. Medications Current Outpatient Medications: Ascorbic Acid (vitamin C) 1000 MG tablet, 1 (one) time each day at the same time., Disp: , Rfl: Aspirin (ASPIR-LOW PO), Take by mouth., Disp: , Rfl: atorvastatin (Lipitor) 20 MG tablet, take 1 tablet by mouth every morning, Disp: 90 tablet, Rfl: 3 cholecalciferol (Vitamin D-3) 25 MCG (1000 UT) tablet, Take 1,000 Units by mouth in the morning., Disp: , Rfl: doxazosin (Cardura) 1 MG tablet, Take 1 tablet (1 mg) by mouth at bedtime, Disp: 90 tablet, Rfl: 3 fluticasone (Flonase) 50 MCG/ACT nasal spray, 1 (one) time each day at the same time., Disp: , Rfl: hydroCHLOROthiazide (HYDRODiuril) 12.5 MG tablet, Take 1 tablet (12.5 mg) by mouth in the morning.,Disp: 90 tablet, Rfl: 3 losartan (Cozaar) 50 MG tablet, Take 1 tablet (50 mg) by mouth in the morning and 1 tablet (50 mg) before bedtime., Disp: 180 tablet, Rfl: 1 metoprolol tartrate (Lopressor) 25 MG tablet, Take 12.5 mg by mouth every other day, Disp: , Rfl: montelukast (Singulair) 10 MG tablet, take 1 tablet by mouth every evening, Disp: 90 tablet, Rfl: 3 Multiple Vitamin (Multi Vitamin) tablet, 1 (one) time each day at the same time., Disp: , Rfl: tamsulosin (Flomax) 0.4 MG 24 hr capsule, Take 0.4 mg by mouth in the morning., Disp: , Rfl: Allergies Patient has no known allergies. Past Surgical History Past Surgical History: Procedure Laterality Date COLONOSCOPY 07/31/2005 [facility] COLONOSCOPY 02/27/2016 colonoscopy, polyp, tubular adenoma, diverticulosis/to repeat 5 yrs /[facility] COLONOSCOPY 2022 LITHOTRIPSY x3 LITHOTRIPSY 08/2021 LITHOTRIPSY 2020 MR ANGIOGRAM HEAD W AND WO IV CONTRAST 01/27/2024 MR ANGIOGRAM HEAD W AND WO IV CONTRAST 01/27/2024 [facility] MR MR ANGIOGRAM NECK W AND WO IV CONTRAST 01/27/2024 MR ANGIOGRAM NECK W AND WO IV CONTRAST 01/27/2024 [facility] MR NASAL SEPTUM SURGERY 1981 OTHER SURGICAL HISTORY 1981 nasoseptoplasty without graft PALATE SURGERY 11/17/2022 r/o palate lesion, [facility] [place] UPPER ARM/ELBOW SURGERY UNLISTED Left ARM SURGERY Family History Family History Problem Relation Name Age of Onset Hypertension Mother mejia Heart disease Mother mejia Coronary artery disease Mother mejia Stroke Father cameron Heart disease Father cameron Hypertension Father cameron Urolithiasis Brother nanda 3 brothers Hypertension Brother nanda Diabetes Brother nanda No Known Problems Daughter Objective General Examination: GENERAL EXAMINATION: alert and oriented. Pleasant disposition. Vascular: DORSALIS PEDIS PULSE: 2/4, bilaterally. POSTERIOR TIBIAL PULSE: 1/4, bilaterally. TEMPERATURE GRADIENT: warm to warm. EDEMA: unremarkable for ankle edema. CAPILLARY FILLING TIME(sec): capillary fill intact bilateral digits less than 3 secs. Neurologic: SHARP SENSATION: tactile and light touch sensation intact. Dermatologic: SKIN FINDINGS: skin turgor is good. HYPERKERATOSIS: no forefoot or digital discrete keratotic lesions are noted. NAIL PATHOLOGY: Bilateral great toes: DSO/pincer toenail deformity: Toenail dystrophy, thickening, discoloration, elongation, crumbly texture; the margins are incurvated/cryptotic, non-inflamed with periungual hyperkeratotic debris; without drainage. 2nd and 3rd digits bilateral: Stable, mild DSO deformity. INGROWN NAIL PATHOLOGY: bilateral great toes as noted. INTERDIGITAL MACERATION: clean, dry, non-inflamed. ULCER: no sign of ulceration or open wound. SKIN MYCOSIS: absent. Orthopedic: JOINT RANGE OF MOTION: functional but limited ankle and subtalar joint range of motion. Functional first MTP joint range of motion. DEFORMITIES: mild HAV deformity bilateral; flexible and reducible. Radiology: Assessment/Plan Symptomatic DSO/cryptosis bilateral great toes Plan: Notes: remains well satisfied with conservative and palliative care measures; again indicated. Patient expresses no interest in oral therapy (potential risk profile). May continue use of vinegar and/or Listerine as directed followed by topical anti-fungal of choice;advised as to limited efficacy; compliance is encouraged. Hygiene and skin care measures discussed as able to do so. Continue cuticle massage as able to do so. Procedure: Toenail Debridement: Aseptic technique: power/manual instrumentation: onychodebridement length and thickness, curretage of offending crypotic margins, colby-ungual debris, providing effective pressureand symptom relief, reducing shoe and digital trauma. This note was created with the assistance of a speech recognition program. While intending to generate a timely document that accurately reflects the content of the visit, no guarantee can be provided that every grammatical or spelling mistake has been or will be identified or corrected. Thank you for your understanding. Ari Sauceda DPM documented in this [facility]01-13-2025 Instructions* Patient Instructions* Ari Sauceda DPM - 11/06/2024 8:30 AM EST As noted documented in this [facility]12-16-2024 History of Present illness Narrative* Judith Massey NP - 10/09/2024 8:00 AM EST Images from the original note were not included. Angel Rodirguez is a 74 y.o. male presents with chief complaint of Hypertension HPI: HPI Patient is present for a 3 month follow up for HTN. Patient reports he does not check his bloodpressures at home. SUBJECTIVE: MEDICATIONS: Current Outpatient Medications Medication Instructions Ascorbic Acid (vitamin C) 1000 MG tablet Every 24 hours Aspirin (ASPIR-LOW PO) Take by mouth. atorvastatin (LIPITOR) 20 mg, Oral, Every morning cetirizine (ZYRTEC) 10 mg, Oral, Daily PRN cholecalciferol (VITAMIN D-3) 1,000 Units, Daily doxazosin (CARDURA) 1 mg, Oral, Nightly DULoxetine (CYMBALTA) 30 mg, Oral, Daily fluticasone (Flonase) 50 MCG/ACT nasal spray Every 24 hours hydroCHLOROthiazide (HYDRODIURIL) 12.5 mg, Oral, Every morning losartan (COZAAR) 50 mg, Oral, 2 times daily metoprolol tartrate (LOPRESSOR) 12.5 mg, Every other day montelukast (SINGULAIR) 10 mg, Oral, Nightly Multiple Vitamin (Multi Vitamin) tablet Every 24 hours tamsulosin (FLOMAX) 0.4 mg, Daily I have reviewed and reconciled the history and medication list with the patient today. REVIEW OF SYMPTOMS: Review of Systems Constitutional: Negative for fatigue. HENT: Negative. Respiratory: Negative. Negative for cough, shortness of breath and wheezing. Cardiovascular: Negative for chest pain and palpitations. Gastrointestinal: Negative. Genitourinary: Negative. Skin: Negative. Neurological: Negative. Psychiatric/Behavioral: Negative. OBJECTIVE: Visit Vitals Smoking Status Former Physical Exam Vitals and nursing note reviewed. Cardiovascular: Rate and Rhythm: Normal rate and regular rhythm. Pulses: Normal pulses. Heart sounds: Normal heart sounds. Pulmonary: Effort: Pulmonary effort is normal. Breath sounds: Normal breath sounds. Abdominal: General: Abdomen is flat. Bowel sounds are normal. Palpations: Abdomen is soft. Musculoskeletal: General: Normal range of motion. Cervical back: Normal range of motion and neck supple. Skin: General: Skin is warm and dry. Neurological: General: No focal deficit present. Mental Status: He is oriented to person, place, and time. ASSESSMENT AND PLAN: Assessment/Plan Diagnoses and all orders for this visit: Primary hypertension (CMS/HCC)-stable continue on current medications Enlarged aorta (CMS/HCC)-reviewed radiological results and educated on process. Patient verbalized understanding. documented in this encounterSaint [facility] [id number] Hospital Discharge instructions Patient Education 10/03/2024 09:46:46 Benign Prostatic Hyperplasia Benign Prostatic Hyperplasia Benign prostatic hyperplasia (BPH) is an enlarged prostate gland that is caused by the normal agingprocess. The prostate may get bigger as a man gets older. The condition is not caused by cancer. The prostate is a walnut-sized gland that is involved in the production of semen. It is located in front of the rectum and below the bladder. The bladder stores urine. The urethra carries stored urine ou t of the body. An enlarged prostate can press on the urethra. This can make it harder to pass urine. The buildup of urine in the bladder can cause infection. Back pressure and infection may progress to bladder damage and kidney (renal) failure. What are the causes? This condition is part of the normal aging process. However, not all men develop problems from thiscondition. If the prostate enlarges away from the urethra, urine flow will not be blocked. If it enlarges toward the urethra and compresses it, there will be problems passing urine. What increases the risk? This condition is more likely to develop in men older than 50 years. What are the signs or symptoms? Symptoms of this condition include: Getting up often during the night to urinate. Needing to urinate frequently during the day. Difficulty starting urine flow. Decrease in size and strength of your urine stream. Leaking (dribbling) after urinating. Inability to pass urine. This needs immediate treatment. Inability to completely empty your bladder. Pain when you pass urine. This is more common if there is also an infection. Urinary tract infection (UTI). How is this diagnosed? This condition is diagnosed based on your medical history, a physical exam, and your symptoms. Tests will also be done, such as: A post-void bladder scan. This measures any amount of urine that may remain in your bladder after you finish urinating. A digital rectal exam. In a rectal exam, your health care provider checks your prostate by putting a lubricated, gloved finger into your rectum to feel the back of your prostate gland. This exam detects the size of your gland and any abnormal lumps or growths. An exam of your urine (urinalysis). A prostate specific antigen (PSA) screening. This is a blood test used to screen for prostate cancer. An ultrasound. This test uses sound waves to electronically produce a picture of your prostate gland. Your health care provider may refer you to a specialist in kidney and prostate diseases (urologist). How is this treated? Once symptoms begin, your health care provider will monitor your condition (active surveillance or watchful waiting). Treatment for this condition will depend on the severity of your condition. Treatment may include: Observation and yearly exams. This may be the only treatment needed if your condition and symptoms are mild. Medicines to relieve your symptoms, including: ?Medicines to shrink the prostate. ?Medicines to relax the muscle of the prostate. Surgery in severe cases. Surgery may include: ?Prostatectomy. In this procedure, the prostate tissue is removed completely through an open incision or with a laparoscope or robotics. ?Transurethral resection of the prostate (TURP). In this procedure, a tool is inserted through the opening at the tip of the penis (urethra). It is used to cut away tissue of the inner core of the prostate. The pieces are removed through the same opening of the penis. This removes the blockage. ?Transurethral incision (TUIP). In this procedure, small cuts are made in the prostate. This lessens the prostate's pressure on the urethra. ?Transurethral microwave thermotherapy (TUMT). This procedure uses microwaves to create heat. The heat destroys and removes a small amount of prostate tissue. ?Transurethral needle ablation (TUNA). This procedure uses radio frequencies to destroy and remove a small amount of prostate tissue. ?Interstitial laser coagulation (ILC). This procedure uses a laser to destroy and remove a small amount of prostate tissue. ?Transurethral electrovaporization (TUVP). This procedure uses electrodes to destroy and remove a small amount of prostate tissue. ?Prostatic urethral lift. This procedure inserts an implant to push the lobes of the prostate away from the urethra. Follow these instructions at home: Take [id number] and prescription medicines only as told by your health care provider. Monitor your symptoms for any changes. Contact your health care provider with any changes. Avoid drinking large amounts of liquid before going to bed or out in public. Avoid or reduce how much caffeine or alcohol you drink. Give yourself time when you urinate. Keep all follow-up visits. This is important. Contact a health care provider if: You have unexplained back pain. Your symptoms do not get better with treatment. You develop side effects from the medicine you are taking. Your urine becomes very dark or has a bad smell. Your lower abdomen becomes distended and you have trouble passing urine. Get help right away if: You have a fever or chills. You suddenly cannot urinate. You feel light-headed or very dizzy, or you faint. There are large amounts of blood or clots in your urine. Your urinary problems become hard to manage. You develop moderate to severe low back or flank pain. The flank is the side of your body between the ribs and the hip. These symptoms may be an emergency. Get help right away. Call 911. Do not wait to see if the symptoms will go away. Do not drive yourself to the hospital. Summary Benign prostatic hyperplasia (BPH) is an enlarged prostate that is caused by the normal aging process. It is not caused by cancer. An enlarged prostate can press on the urethra. This can make it hard to pass urine. This condition is more likely to develop in men older than 50 years. Get help right away if you suddenly cannot urinate. This information is not intended to replace advice given to you by your health care provider. Make sure you discuss any questions you have with your health care provider. Document Revised: 04/29/2022 Document Reviewed: 04/29/2022 [employer] Patient Education 2023 [employer]. Follow Up Care 10/05/2023 11:02:43 With:NORM JEFFERS, Lucius Moya, URL Address: [address] [place], [place] [id number]- When: Unknown [facility] [phone] NotePatient Education Urology Benign Prostatic Hyperplasia Benign prostatic hyperplasia (BPH) is an enlarged prostate gland that is caused by the normal agingprocess. The prostate may get bigger as a man gets older. The condition is not caused by cancer. The prostate is a walnut-sized gland that is involved in the production of semen. It is located in front of the rectum and below the bladder. The bladder stores urine. The urethra carries stored urine ou t of the body. An enlarged prostate can press on the urethra. This can make it harder to pass urine. The buildup of urine in the bladder can cause infection. Back pressure and infection may progress to bladder damage and kidney (renal) failure. What are the causes? This condition is part of the normal aging process. However, not all men develop problems from thiscondition. If the prostate enlarges away from the urethra, urine flow will not be blocked. If it enlarges toward the urethra and compresses it, there will be problems passing urine. What increases the risk? This condition is more likely to develop in men older than 50 years. What are the signs or symptoms? Symptoms of this condition include: ??? Getting up often during the night to urinate. ??? Needing to urinate frequently during the day. ??? Difficulty starting urine flow. ??? Decrease in size and strength of your urine stream. ??? Leaking (dribbling) after urinating. ??? Inability to pass urine. This needs immediate treatment. ??? Inability to completely empty your bladder. ??? Pain when you pass urine. This is more common if there is also an infection. ??? Urinary tract infection (UTI). How is this diagnosed? This condition is diagnosed based on your medical history, a physical exam, and your symptoms. Tests will also be done, such as: ??? A post-void bladder scan. This measures any amount of urine that may remain in your bladder after you finish urinating. ??? A digital rectal exam. In a rectal exam, your health care provider checks your prostate by putting a lubricated, gloved finger into your rectum to feel the back of your prostate gland. This exam detects the size of your gland and any abnormal lumps or growths. ??? An exam of your urine (urinalysis). ??? A prostate specific antigen (PSA) screening. This is a blood test used to screen for prostate cancer. ??? An ultrasound. This test uses sound waves to electronically produce a picture of your prostate gland. Your health care provider may refer you to a specialist in kidney and prostate diseases (urologist). How is this treated? Once symptoms begin, your health care provider will monitor your condition (active surveillance or watchful waiting). Treatment for this condition will depend on the severity of your condition. Treatment may include: ??? Observation and yearly exams. This may be the only treatment needed if your condition and symptoms are mild. ??? Medicines to relieve your symptoms, including: ? Medicines to shrink the prostate. ? Medicines to relax the muscle of the prostate. ??? Surgery in severe cases. Surgery may include: ? Prostatectomy. In this procedure, the prostate tissue is removed completely through an open incision or with a laparoscope or robotics. ? Transurethral resection of the prostate (TURP). In this procedure, a tool is inserted through theopening at the tip of the penis (urethra). It is used to cut away tissue of the inner core of the prostate. The pieces are removed through the same opening of the penis. This removes the blockage. ? Transurethral incision (TUIP). In this procedure, small cuts are made in the prostate. This lessens the prostate's pressure on the urethra. ? Transurethral microwave thermotherapy (TUMT). This procedure uses microwaves to create heat. The heat destroys and removes a small amount of prostate tissue. ? Transurethral needle ablation (TUNA). This procedure uses radio frequencies to destroy and removea small amount of prostate tissue. ? Interstitial laser coagulation (ILC). This procedure uses a laser to destroy and remove a small amount of prostate tissue. ? Transurethral electrovaporization (TUVP). This procedure uses electrodes to destroy and remove a small amount of prostate tissue. ? Prostatic urethral lift. This procedure inserts an implant to push the lobes of the prostate awayfrom the urethra. Follow these instructions at home: ??? Take okyn-als-ayjiovi and prescription medicines only as told by your health care provider. ??? Monitor your symptoms for any changes. Contact your health care provider with any changes. ??? Avoid drinking large amounts of liquid before going to bed or out in public. ??? Avoid or reduce how much caffeine or alcohol you drink. ??? Give yourself time when you urinate. ??? Keep all follow-up visits. This is important. Contact a health care provider if: ??? You have unexplained back pain. ??? Your symptoms do not get (more content not included)...[facility]11-25-2024 History of Present illness Narrative* Nancy Scott, MIKAYLA - 09/18/2024 1:30 PM EST Images from the original note were not included. Angel Rodriguez is a 74 y.o. male presents with chief complaint of Medicare Annual Wellness Visit Subsequent (Pt here for Medicare Wellness ) and Suture / Staple Removal (Removal of stitches from lefthand. They were placed on 09/09 at [facility]. Cut his hand on some metal. ) Over the past 2 weeks, how often have you been bothered by any of the following problems? Little interest or pleasure in doing things: Not at all Feeling down, depressed, or hopeless: Not at all Patient Health Questionnaire-2 Score: 0 Simpson Fall Risk History of Falling, Immediate or Within 3 Months: No Secondary Diagnosis: No Ambulatory Aid: Walks without aid/bedrest/nurse assist Intravenous Therapy/Heparin Lock: No Gait/Transferring: Normal/bedrest/immobile Mental Status: Oriented to own ability Simpson Fall Risk Score: 0 Health Risk Assessment Form Do you need help eating, bathing, using the toilet, dressing, or getting around your home?: No Can you prepare your own meals?: Yes Can you do your own housework without help?: Yes Can you shop for groceries or clothes without help?: Yes Do you exercise for about 20 minutes 3 or more days a week?: Yes How confident are you that you can control and manage most of your health problems?: Somewhat confident Can you mange your money, credit cards and accounts, pay bills and taxes?: Yes Vision Screening: Yes, patient sees regular behavior specialist/teaching associate Hearing Screening: Not done Cognitive Screening Three Word Registration: Banana, [place], Chair Clock Drawing: Normal Clock - 2 Three Word Recall: All 3 words correct - 3 Total Score (0-5 Points): 5 Pain Assessment Pain Score: 1 HPI: HPI History of Present Illness History of Present Illness The patient presents for a Medicare wellness visit. He is scheduled for a CT scan of the heart in 11/2023 due to a mild dilation of the lower arteries,measuring 4.4. He has a history of smoking. He is currently under the care of a marketing campaign analyst and a neurologist, who are monitoring his blood pressure. He has been diagnosed with a mild stroke in the past. His last colonoscopy was performed in 08/2023. He has discontinued the use of his sleep apnea machine. He experiences numbness in his feet, which he attributes to a pinched nerve in his lower back. He also reports occasional lightheadedness upon standing. He has been seeing neurology, but says they are only managing his BP, which he would prefer cardiology manage rather than neuro. He sustained a hand injury while cutting a metal chair with an angled precision lens grinder. The wound was treated at the hospital, where it was cleaned and sutured. He is now requesting the removal of the stitches. IMMUNIZATIONS He is up to date on his influenza vaccine. SUBJECTIVE: MEDICATIONS: Current Outpatient Medications Medication Instructions Ascorbic Acid (vitamin C) 1000 MG tablet Every 24 hours Aspirin (ASPIR-LOW PO) Take by mouth. atorvastatin (LIPITOR) 20 mg, Oral, Every morning cetirizine (ZYRTEC) 10 mg, Oral, Daily PRN cholecalciferol (VITAMIN D-3) 1,000 Units, Daily doxazosin (CARDURA) 1 mg, Oral, Nightly DULoxetine (CYMBALTA) 30 mg, Oral, Daily fluticasone (Flonase) 50 MCG/ACT nasal spray Every 24 hours hydroCHLOROthiazide (HYDRODIURIL) 12.5 mg, Oral, Every morning losartan (COZAAR) 50 mg, Oral, 2 times daily metoprolol tartrate (LOPRESSOR) 12.5 mg, Every other day montelukast (SINGULAIR) 10 mg, Oral, Nightly Multiple Vitamin (Multi Vitamin) tablet Every 24 hours tamsulosin (FLOMAX) 0.4 mg, Daily I have reviewed and reconciled the history and medication list with the patient today. REVIEW OF SYMPTOMS: Review of Systems Constitutional: Negative. HENT: Negative. Eyes: Negative. Respiratory: Negative. Cardiovascular: Negative. Gastrointestinal: Negative. Genitourinary: Negative. Musculoskeletal: Negative. Skin: Negative. Neurological: Negative. Endocrine: Negative. OBJECTIVE: Visit Vitals Wt 254 lb BMI 32.61 kg/m Smoking Status Former BSA 2.45 m Physical Exam Vitals and nursing note reviewed. Constitutional: Appearance: Normal appearance. HENT: Head: Normocephalic and atraumatic. Right Ear: Hearing and tympanic membrane normal. Left Ear: Hearing and tympanic membrane normal. Nose: Nose normal. Right Turbinates: Not enlarged. Left Turbinates: Not enlarged. Right Sinus: No maxillary sinus tenderness or frontal sinus tenderness. Left Sinus: No maxillary sinus tenderness or frontal sinus tenderness. Mouth/Throat: Lips: Shell. Mouth: Mucous membranes are moist. Pharynx: Oropharynx is clear. Uvula midline. Tonsils: No tonsillar exudate. Eyes: General: Lids are normal. Vision grossly intact. Gaze aligned appropriately. Extraocular Movements: Extraocular movements intact. Conjunctiva/sclera: Conjunctivae normal. Neck: Thyroid: No thyroid mass or thyromegaly. Vascular: No carotid bruit. Trachea: Trachea normal. Cardiovascular: Rate and Rhythm: Normal rate and regular rhythm. Pulses: Normal pulses. Heart sounds: Normal heart sounds. Pulmonary: Effort: Pulmonary effort is normal. Breath sounds: Normal breath sounds and air entry. Abdominal: General: Abdomen is flat. Bowel sounds are normal. Palpations: Abdomen is soft. Musculoskeletal: Cervical back: Full passive range of motion without pain, normal range of motion and neck supple. Lymphadenopathy: Cervical: No cervical adenopathy. Skin: General: Skin is warm and dry. Capillary Refill: Capillary refill takes less than 2 seconds. Comments: Left dorsum of hand, with well healing laceration, with 6 sutures present; after removal wound is well approximated, no drainage. Neurological: Mental Status: He is alert and oriented to person, place, and time. Sensory: Sensation is intact. Motor: Motor function is intact. Coordination: Coordination is intact. Psychiatric: Attention and Perception: Attention and perception normal. Mood and Affect: Mood and affect normal. Speech: Speech normal. Behavior: Behavior is cooperative. Thought Content: Thought content normal. ASSESSMENT AND PLAN: Assessment/Plan Diagnoses and all orders for this visit: Primary hypertension (CMS/HCC) - CBC and differential; Future - Comprehensive metabolic panel; Future Discussed current management plan. Goal BP less then 130/80. Discussed heart healthy diet, increasefruits and vegetables, limit salt intake. Encouraged increase physical exercise, try to be as active as possible at least 150 mins per week. Importance of weight management with a goal BMI less then 27 discussed. Discussed complications of uncontrolled blood pressure. Patient instructed to monitor BP's 1-2 times a week, keep a log, and bring to next visit. Barriers to care and medication compliance discussed. Patient voices understanding of meds. NETTE (obstructive sleep apnea) He does not use a machine, because he had trouble with keeping the mask on when he did try it. Enlarged aorta (CMS/HCC) Following with cardiology. Diverticular disease of colon Benign prostatic hyperplasia with urinary frequency Stable. Follows with urology. Spinal stenosis of lumbar region with neurogenic claudication Obesity (BMI 30.0-34.9) Prediabetes - Comprehensive metabolic panel; Future - Hemoglobin A1c; Future Pipe smoker Moderate episode of recurrent major depressive disorder (CMS/HCC) Stable. Medicare annual wellness visit, subsequent Discussed height, weight and BMI. Encouraged healthy diet and regular exercise. Discussed vaccines and encouraged yearly flu shot. Annual eye and dental exam. Vaccines and cancer screens reviewed forcompleteness. Screen labs as needed. Assessed needs for tools in the home for independence. Living will and durable power of security chief museum reviewed. Updated patient problem list and reviewed all current medications with patient. Given time to ask questions. Mixed hyperlipidemia (CMS/HCC) - Lipid panel; Future Recurrent major depressive disorder, in partial remission (HCC) (CMS/HCC) Stable. Screening PSA (prostate specific antigen) - PSA; Future Visit for suture removal 6 sutures removed with no issue. Tolerated well. documented in this [facility]11-18-2024 History of Present illness Narrative* Garth Molina MD - 09/11/2024 2:15 PM EST Angel Rodriguez Date of visit: 09/11/2024 Date of : 1950 Age: 74 y.o. Patient Active Problem List Diagnosis Ankle weakness Bilateral foot pain Lumbosacral spondylosis without myelopathy Abnormal cardiovascular stress test No Known Allergies Current Outpatient Medications Medication Sig Dispense Refill ascorbic acid (VITAMIN C) 500 mg tablet Take 1 tablet (500 mg total) by mouth in the morning. aspirin 81 mg Take 1 tablet (81 mg total) by mouth in the morning. atorvastatin (LIPITOR) 20 mg tablet Take 1 tablet (20 mg total) by mouth in the morning. cholecalciferol 1,000 units tablet Take 1 tablet (1,000 Units total) by mouth in the morning. doxazosin (CARDURA) 1 mg tablet Take 1 tablet (1 mg total) by mouth in the morning. FLOMAX 0.4 mg capsule Take 1 capsule (0.4 mg total) by mouth nightly. hydroCHLOROthiazide (HYDRODIURIL) 12.5 mg tablet Take 1 tablet (12.5 mg total) by mouth daily. losartan (COZAAR) 50 mg tablet Take 1 tablet (50 mg total) by mouth in the morning and 1 tablet (50mg total) before bedtime. metoprolol succinate XL (TOPROL-XL) 50 mg 24 hr tablet Take 0.5 tablets (25 mg total) by mouth every other day. montelukast (SINGULAIR) 10 mg tablet Take 1 tablet (10 mg total) by mouth once daily. MULTIVITAMIN ORAL Take 1 tablet by mouth in the morning. No current facility-administered medications for this visit. Chief Complaint Patient presents with Follow-up EST PT F/U CATH DONE L/S MS SCHED W/ PT History of Present Illness I had the opportunity to meet this 74-year-old. He was last seen in the office for an abnormal stress test. He underwent cardiac catheterization which showed angiographically normal coronary arteries Denies chest pain, worsening shortness of breath, syncope, presyncope, lightheadedness or dizziness He is a retired teacher in [employer]. He is unaccompanied today CV TESTING HISTORY: ECHO: Echo complete W/O contrast Result Date: 06/22/2024 Left Ventricle: Left ventricle appears normal in size. There is moderate focal basal increased wallthickness/hypertrophy no LVOT obstruction noted. Remaining wall segments are mildly increased. Systolic function is normal with an ejection fraction of 60-65%. The quantitative EF by 2D Landeros biplane is 62%. Grade I diastolic dysfunction (impaired relaxation) is present. Right Ventricle: Right ventricular size appears normal. Systolic function is normal. Aortic Valve: The aortic valve is trileaflet. There is sclerosis. There is mild regurgitation. There is no evidence of aortic valve stenosis. Mitral Valve: There is [id number] regurgitation with a centrally directed jet. There is no evidence of mitral valve stenosis. Tricuspid Valve: There is trace to mild regurgitation. The tricuspid valve regurgitation jet is central. There is no evidence of tricuspid valve stenosis. There is no pulmonary hypertension. STRESS: Nuc stress Lexiscan Result Date: 06/22/2024 Stress ECG: A Lexiscan protocol was performed. Baseline ECG indicates sinus rhythm and 1st degree AV block. There were no arrhythmias during stress. The stress ECG was negative. Perfusion Defect: There us mild intensity focal mid anterior reversible defect indicating ischemia in likely Diagonal territory. Stress Function Comments: Stress ejection fraction is 73%. Perfusion Comments: Based on the perfusion study data, risk of cardiovascular events is intermediate risk. HOLTER: No results found. CARDIAC CATH: No results found. CAROTID: Vas carotid duplex bilateral Result Date: 01/03/2024 Carotid Ultrasound Examination Findings Grayscale and color Doppler ultrasound examination of the carotid and vertebral artery systems bilaterally. Maximum peak systolic velocity (PSV) / end diastolic velocity (EDV) measurements were obtained. Right Carotid System Right Common Carotid Artery (RCCA): 67/26 cm/s. Right Carotid Bulb: 40/14 cm/s Right Internal Carotid Artery (MARISELA): 57/15, 60/19, and77/35 cm/s. Right External Carotid Artery (RECA): 85 cm/s. Right Vertebral Artery (RVA): Antegrade flow. Right ICA/CCA ratio: 1.1. Minimal plaque is identified within the distal right common carotid artery, carotid bifurcation, and carotid bulb. Left Carotid System Left Common Carotid Artery (LCCA): 77/33 cm/s. Left carotid Bulb: 36/12 cm/s Left Internal Carotid Artery (LICA): 54/20, 69/34, and 73/39 cm/s. Left External Carotid Artery (LECA): 58 cm/s. Left Vertebral Artery (LVA): Antegrade flow. Left ICA/CCA ratio 0.9. Minimal plaque is identified within the mid and distal left common carotid artery, carotid bifurcation, and carotid bulb. Impression: Less than 50% stenosis, bilateral internal carotid arteries. Validated velocity measurements with angiographic measurements, velocity criteria are extrapolated from diameter data as defined by the Society of Radiologist in Ultrasound Consensus Conference Radiology 2003; 229;340-346 . KEVIN CTRONICALLY SIGNED BY: Karthik Mistry MD CXR: No results found. Lipid Profile: Lab Results Component Value Date Cholesterol 158 08/24/2016 Cholesterol:HDL Ratio 2.6 08/24/2016 HDL 57 08/20/2015 HDL Cholesterol 60 08/24/2016 HDL interpretation 08/20/2015 RISK FAVORABLE AVERAGE INCREASED MEN >55 MG/DL 35-55 MG/DL < 35 MG/DL FEMALE >65 MG/DL 45-65 MG/DL < 45 MG/DL Triglycerides 63 08/24/2016 Triglycerides 72 08/20/2015 LDL 90 08/20/2015 LDL (calc) 86 08/24/2016 LDL interp 08/20/2015 RECOMMENDED: <130 MG/DL MODERATE RISK: 130-159 MG/DL HIGH RISK: >160 MG/DL Past Medical History: Diagnosis Date Allergic rhinitis Anxiety Asymmetrical hearing loss of left ear Chipped tooth Chronic otitis externa of both ears Chronic pain disorder Diverticulosis DAVID (generalized anxiety disorder) Hyperlipidemia Hypertension Kidney stones Low back pain Neuropathy raquel feet Obstructive sleep apnea no c pap tried and failed to like it Osteoarthritis Seasonal allergies SNHL (sensorineural hearing loss) Past Surgical History: Procedure Laterality Date ARM SURGERY Cardiac Invasive N/A 08/09/2024 Performed by Daysi May MD at [facility] CARDIAC [employer] DEVELOPER COLONOSCOPY 07/31/2005 COLONOSCOPY 02/27/2016 COLONOSCOPY DIAGNOSTIC / SCREENING N/A 09/20/2023 Performed by Pierre Pulido DO at [facility] Coronary angiogram and left ventricular gram/pressure N/A 08/09/2024 Performed by Daysi May MD at [facility] CARDIAC [employer] DEVELOPER LITHOTRIPSY Family History Problem Relation Age of Onset Dementia Mother Hypertension Mother Diabetes Brother Sleep apnea Brother Social History Socioeconomic History Marital status: Spouse name: Not on file Number of children: Not on file Years of education: Not on file Highest education level: Not on file Occupational History Not on file Tobacco Use Smoking status: Former Types: Pipe Quit date: 2021 Years since quittin.8 Smokeless tobacco: Never Vaping Use Vaping status: Never Used Substance and Sexual Activity Alcohol use: Yes Alcohol/week: 3.0 standard drinks of alcohol Types: 3 Cans of beer per week Drug use: No Sexual activity: Defer Other Topics Concern Caffeine Use Yes Social History Narrative Not on file Social Drivers of Health Financial Resource Strain: Low Risk (04/14/2023) Received from [facility] Overall Financial Resource Strain (CARDIA) Difficulty of Paying Living Expenses: Not hard at all Food Insecurity: No Food Insecurity (09/09/2024) Hunger Screening Food Insecurity - Worry: Never True Food Insecurity - Inability: Never True Transportation Needs: No Transportation Needs (04/14/2023) Received from [facility] PRAPARE - Transportation Lack of Transportation (Medical): No Lack of Transportation (Non-Medical): No Physical Activity: Sufficiently Active (04/14/2023) Received from [facility] Exercise Vital Sign Days of Exercise per Week: 5 days Minutes of Exercise per Session: 60 min Stress: No Stress Concern Present (04/14/2023) Received from [facility] [place] [facility] Occupational [facility] - Occupational Stress Questionnaire Feeling of Stress : Not at all Social Connections: Moderately Isolated (04/14/2023) Received from [facility] Social Connection and Isolation Panel [NHANES] Frequency of Communication with Friends and Family: More than three times a week Frequency of Social Gatherings with Friends and Family: More than three times a week Attends Religion Services: Never Active Member of Clubs or Organizations: No Attends Club or Organization Meetings: Never Marital Status: Interpersonal Safety: Not At Risk (04/14/2023) Received from [facility] Humiliation, Afraid, Rape, and Kick questionnaire Fear of Current or Ex-Partner: No Emotionally Abused: No Physically Abused: No Sexually Abused: No Housing Instability: Low Risk (04/14/2023) Received from [facility] Housing Stability Vital Sign Unable to Pay for Housing in the Last Year: No Number of Places Lived in the Last Year: 1 Unstable Housing in the Last Year: No Review of Systems Review of Systems Constitutional: Negative for malaise/fatigue. HENT: Negative for nosebleeds. Eyes: Negative for blurred vision and double vision. Respiratory: Negative for cough, shortness of breath and wheezing. Hematologic/Lymphatic: Does not bruise/bleed easily. Musculoskeletal: Negative for joint pain, joint swelling, muscle cramps and muscle weakness. Gastrointestinal: Negative for bloating, abdominal pain, constipation, nausea and vomiting. Genitourinary: Negative for hematuria. Neurological: Negative for dizziness, headaches, light-headedness, loss of balance, numbness and weakness. Psychiatric/Behavioral: Negative for depression. The patient is not nervous/anxious. CARDIOVASCULAR: Please review HPI. Physical Examination General appearance: Alert, oriented and cooperative. In no acute distress. Pleasant Skin: Warm and dry to touch. Respiratory: Clear to auscultation bilaterally, no use of accessory muscles. Cardiovascular: RRR with normal S1 and S2 with no murmurs. Musculoskeletal: No peripheral edema. VITAL SIGNS: BP 130/84 Pulse 75 Ht 190.5 cm (6' 3 ) Wt 115.7 kg (255 lb) SpO2 98% BMI 31.87 kg/m No orders of the defined types were placed in this encounter. There are no discontinued medications. IMPRESSIONS/PLAN There are no diagnoses linked to this encounter. 1. Angiographically essentially normal coronary arteries on left heart catheterization 07/2024 2. Normal left ventricular systolic function and wall motion on left heart catheterization 07/2024 and echocardiogram 05/2024 3. Primary hypertension 4. Hyperlipidemia -on atorvastatin 5. Obstructive sleep apnea Declined CPAP 6. Dilated ascending aorta to 4.4 cm on transthoracic echo 05/2024 --anticipate CTA chest 11/2024 --discussed with patient TODAYS ORDERS No orders of the defined types were placed in this encounter. FOLLOW UP Return in about 1 year (around 09/11/2025) for CTA as scheduled. PCP: SHAYY DANGELO Referring Physician: SHAYY Dangelo [id number], [address] [address] documented in this encounterChildren[facility]11-[facility]-2024 Miscellaneous Notes* Telephone Encounter - Dalia Jordan CMA - 09/08/2024 10:22 AM EST Left message for patient to remind them to bring their most current medication list with them to their appointment. documented in this encounterChildren's [facility]11-15-2024 Telephone encounter Note* Telephone Encounter - Dalia Jordan CMA - 09/08/2024 10:22 AM EST Left message for patient to remind them to bring their most current medication list with them to their appointment. [facility] History of Present illness Narrative* Judith Massey NP - 08/23/2024 2:00 PM EDT Images from the original note were not included. Angel Rodriguez is a 74 y.o. male presents with chief complaint of Sinus Problem (Started last . Head and nasal congestion. Started out having a runny nose, some night sweats. Ears feel full to him and eyes have been watery. Slight cough but not much. Has not tried anything OTC. ) HPI: HPI SUBJECTIVE: MEDICATIONS: Current Outpatient Medications Medication Instructions Ascorbic Acid (vitamin C) 1000 MG tablet Every 24 hours Aspirin (ASPIR-LOW PO) Take by mouth. atorvastatin (LIPITOR) 20 mg, Oral, Every morning cetirizine (ZYRTEC) 10 mg, Oral, Daily PRN cholecalciferol (VITAMIN D-3) 1,000 Units, Daily doxazosin (CARDURA) 1 mg, Oral, Nightly DULoxetine (CYMBALTA) 30 mg, Oral, Daily fluticasone (Flonase) 50 MCG/ACT nasal spray Every 24 hours hydroCHLOROthiazide (HYDRODIURIL) 12.5 mg, Oral, Every morning losartan (COZAAR) 50 mg, Oral, 2 times daily metoprolol tartrate (LOPRESSOR) 12.5 mg, Every other day montelukast (SINGULAIR) 10 mg, Oral, Nightly Multiple Vitamin (Multi Vitamin) tablet Every 24 hours tamsulosin (FLOMAX) 0.4 mg, Daily I have reviewed and reconciled the history and medication list with the patient today. REVIEW OF SYMPTOMS: Review of Systems Constitutional: Positive for fatigue. Negative for fever. HENT: Positive for congestion, rhinorrhea, sinus pressure and sinus pain. Respiratory: Positive for cough. Negative for shortness of breath and wheezing. Cardiovascular: Negative for palpitations. Gastrointestinal: Negative. Genitourinary: Negative. Musculoskeletal: Negative. Skin: Negative. Neurological: Negative. OBJECTIVE: Visit Vitals BP 126/76 (BP Location: Left arm, Patient Position: Sitting, BP Cuff Size: Large adult) Pulse 83 Wt 256 lb BMI 32.87 kg/m Smoking Status Former BSA 2.46 m Physical Exam Vitals and nursing note reviewed. Constitutional: Appearance: He is well-developed. HENT: Head: Normocephalic. Right Ear: Hearing normal. Tympanic membrane is injected. Left Ear: Hearing normal. Tympanic membrane is injected. Nose: Congestion and rhinorrhea present. Right Sinus: Frontal sinus tenderness present. Left Sinus: Frontal sinus tenderness present. Mouth/Throat: Mouth: Mucous membranes are moist. Pharynx: Posterior oropharyngeal erythema present. No oropharyngeal exudate. Tonsils: No tonsillar exudate. Cardiovascular: Rate and Rhythm: Normal rate and regular rhythm. Heart sounds: Normal heart sounds. Pulmonary: Effort: Pulmonary effort is normal. Breath sounds: Normal breath sounds. Abdominal: General: Abdomen is flat. There is no distension. Tenderness: There is no abdominal tenderness. Musculoskeletal: Cervical back: Neck supple. Lymphadenopathy: Cervical: Right cervical: No superficial cervical adenopathy. Left cervical: No superficial cervical adenopathy. Skin: General: Skin is warm. Capillary Refill: Capillary refill takes less than 2 seconds. Neurological: General: No focal deficit present. Mental Status: He is alert and oriented to person, place, and time. ASSESSMENT AND PLAN: Assessment/Plan Diagnoses and all orders for this visit: Acute non-recurrent pansinusitis - amoxicillin-clavulanate (Augmentin) 500-125 MG tablet; Take 1 tablet (500 mg) by mouth in the morning and 1 tablet (500 mg) before bedtime. Do all this for 7 days. Take medications as prescribed. Increase clear liquids. Rest documented in this encounterSaint [facility] [id number] History of Present illness Narrative* Trinh Montague RN - 08/17/2024 9:30 AM EDT Patient presents to [facility] office for post cardiac catheterization site evaluation. Patient underwent cardiac catheterization on 08/09/24 via Rt radial approach. Catheterization site is clean dry and intact without any signs or symptoms of infection or hematoma. No eccyomosis noted. No pulsatile mass. No bruit. Distal pulses are palpable. Discussed pt's elevated BP. Only took morning meds appr 20 minutes ago. Meds discussed. Instructed to take HCTZ in morning Not at night. Rechecked BP prior to pt leaving and was better Patient will follow up with provider as scheduled on 09/11/24. Patient will call the office sooner with any questions or concerns prior to that appointment. documented in this encounterChildren's [facility] for [facility]10-09-2024 Miscellaneous Notes* Telephone Encounter - Aleta Johnson RN - 08/02/2024 2:24 PM EDT Received order from Nay at the [facility] office. Patient scheduled for cath on 08/09/24 at 1030 AM at [facility]. Notified Nay. No Covid test required at this time. * Telephone Encounter - Trinh Montague RN - 08/02/2024 2:24 PM EDT Verbal & written instructions to pt w/ driving directions documented in this encounterChildren's Hospital for Rehabilitation10-09-2024 Telephone encounter Note* Telephone Encounter - Aleta Johnson RN - 08/02/2024 2:24 PM EDT Received order from Nay at the [facility] office. Patient scheduled for cath on 08/09/24 at 1030 AM at [facility]. Notified Nay. No Covid test required at this time. [facility] Telephone encounter Note* Telephone Encounter - Trinh Montague RN - 08/02/2024 2:24 PM EDT Verbal & written instructions to pt w/ driving directions [facility] History of Present illness Narrative* Piper Knight MD - 08/02/2024 1:30 PM EDT Angel Rodriguez Date of visit: 08/02/2024 Date of : 1950 Age: 74 y.o. Patient Active Problem List Diagnosis Ankle weakness Bilateral foot pain Lumbosacral spondylosis without myelopathy No Known Allergies Current Outpatient Medications Medication Sig Dispense Refill ascorbic acid (VITAMIN C) 500 mg tablet Take 1 tablet (500 mg total) by mouth in the morning. aspirin 81 mg Take 1 tablet (81 mg total) by mouth in the morning. atorvastatin (LIPITOR) 20 mg tablet Take 1 tablet (20 mg total) by mouth in the morning. cholecalciferol 1,000 units tablet Take 1 tablet (1,000 Units total) by mouth in the morning. doxazosin (CARDURA) 1 mg tablet Take 1 tablet (1 mg total) by mouth in the morning. FLOMAX 0.4 mg capsule Take 1 capsule (0.4 mg total) by mouth nightly. hydroCHLOROthiazide (HYDRODIURIL) 12.5 mg tablet Take 1 tablet (12.5 mg total) by mouth daily. losartan (COZAAR) 50 mg tablet Take 1 tablet (50 mg total) by mouth in the morning and 1 tablet (50mg total) before bedtime. metoprolol succinate XL (TOPROL-XL) 50 mg 24 hr tablet Take 0.5 tablets (25 mg total) by mouth every other day. montelukast (SINGULAIR) 10 mg tablet Take 1 tablet (10 mg total) by mouth once daily. MULTIVITAMIN ORAL Take 1 tablet by mouth in the morning. No current facility-administered medications for this visit. Chief Complaint Patient presents with New Patient [employer] REFERRAL JUDITH MASSEY Shortness of Breath On exertion Dizziness More lightheadedness History of Present Illness 74-year-old male with history of hypertension, hyperlipidemia, NETTE, anxiety disorder. New to our practice. Referred for evaluation and management of abnormal stress test. Patient had recent nuclear stress test showed a mild focal defect in the anterior wall. Stated that he has been having lightheadedness when he gets up quickly to ambulate. No syncope although occasionally feels like he might pass out. His blood pressure medications have been adjusted and now takes Toprol-XL 25 mg every other day and feels better. Blood pressure and heart rate controlled today. Denied any episodes of chest pain. Reported having shortness of breath with exertion, not all the time. No palpitations or dizziness orthopnea or edema. Stated that he goes out for walks with his dog daily with no chest pain and sometimes feels short of breath. Tobacco: Quit 3 yrs ago. Smoked apipe for about 40 yrs, average of using a pipe 10 times per day Alcohol : Couple of beers per day Recreational drugs: None Family history: EKG 05/2024: sinus rhythm, 1st degree AVB, nonspecific ST changes. Past Medical History: Diagnosis Date Allergic rhinitis Anxiety Asymmetrical hearing loss of left ear Chipped tooth Chronic otitis externa of both ears Chronic pain disorder Diverticulosis DAVID (generalized anxiety disorder) Hyperlipidemia Hypertension Kidney stones Low back pain Neuropathy raquel feet Obstructive sleep apnea no c pap tried and failed to like it Osteoarthritis Seasonal allergies SNHL (sensorineural hearing loss) No data recorded No data recorded No data recorded Past Surgical History: Procedure Laterality Date ARM SURGERY COLONOSCOPY 07/31/2005 COLONOSCOPY 02/27/2016 COLONOSCOPY DIAGNOSTIC / SCREENING N/A 09/20/2023 Performed by Pierre Pulido DO at [facility] Family History Problem Relation Age of Onset Dementia Mother Hypertension Mother Diabetes Brother Sleep apnea Brother Social History Socioeconomic History Marital status: Spouse name: Not on file Number of children: Not on file Years of education: Not on file Highest education level: Not on file Occupational History Not on file Tobacco Use Smoking status: Former Types: Pipe Quit date: 2021 Years since quittin.7 Smokeless tobacco: Never Vaping Use Vaping status: Never Used Substance and Sexual Activity Alcohol use: Yes Alcohol/week: 3.0 standard drinks of alcohol Types: 3 Cans of beer per week Drug use: No Sexual activity: Defer Other Topics Concern Caffeine Use Yes Social History Narrative Not on file Social Determinants of Health Financial Resource Strain: Low Risk (04/14/2023) [facility] Overall Financial Resource Strain (CARDIA) Difficulty of Paying Living Expenses: Not hard at all Food Insecurity: No Food Insecurity (08/02/2024) Hunger Screening Food Insecurity - Worry: Never True Food Insecurity - Inability: Never True Transportation Needs: No Transportation Needs (04/14/2023) Received from [facility] PR[facility] - Transportation Lack of Transportation (Medical): No Lack of Transportation (Non-Medical): No Physical Activity: Sufficiently Active (04/14/2023) Received from [facility] Exercise Vital Sign Days of Exercise per Week: 5 days Minutes of Exercise per Session: 60 min Stress: No Stress Concern Present (04/14/2023) Received from [facility] [place] of Occupational Health - Occupational Stress Questionnaire Feeling of Stress : Not at all Social Connections: Moderately Isolated (04/14/2023) Received from [facility] Social Connection and Isolation Panel [NHANES] Frequency of Communication with Friends and Family: More than three times a week Frequency of Social Gatherings with Friends and Family: More than three times a week Attends Religion Services: Never Active Member of Clubs or Organizations: No Attends Club or Organization Meetings: Never Marital Status: Interpersonal Safety: Not At Risk (04/14/2023) Received from [facility] Humiliation, Afraid, Rape, and Kick questionnaire Fear of Current or Ex-Partner: No Emotionally Abused: No Physically Abused: No Sexually Abused: No Housing Instability: Low Risk (04/14/2023) Received from [facility] Housing Stability Vital Sign Unable to Pay for Housing in the Last Year: No Number of Places Lived in the Last Year: 1 Unstable Housing in the Last Year: No Review of Systems Review of Systems Respiratory: Negative for cough, hemoptysis and wheezing. Gastrointestinal: Negative for abdominal pain, change in bowel habit and hematochezia. Genitourinary: Negative for dysuria and hematuria. Neurological: Negative for focal weakness, headaches and paresthesias. CARDIOVASCULAR: Please review HPI. Physical Examination General appearance: Alert, oriented and cooperative. In no acute distress. Skin: Warm and dry to touch. Head: Normocephalic, without obvious abnormality, atraumatic. Ears, Nose, Mouth, Throat: Throat clear without erythema or exudate. Dentition intact. Eyes: Conjunctivae unremarkable, EOM intact. Neck: No JVD, No carotid bruit. Neck supple, trachea midline. Respiratory: Clear to auscultation bilaterally, no use of accessory muscles. Cardiovascular: RRR with normal S1 and S2 with no murmurs. Gastrointestinal: Soft, non-tender. Bowel sounds normal. Musculoskeletal: No peripheral edema. Neurologic: Oriented to time, person and place, affect appropriate. No focal/major motor defects noted. Psychiatric: Appropriate mood, memory and judgement. VITAL SIGNS: BP 132/80 (BP Site: Left Arm, BP Postition: Sitting) Pulse 81 Ht 188 cm (6' 2 ) Wt 113.4 kg (250 lb) SpO2 96% BMI 32.10 kg/m Orders Placed or Reconciled This Encounter Medications FLOMAX 0.4 mg capsule Sig: Take 1 capsule (0.4 mg total) by mouth nightly. Medications Discontinued During This Encounter Medication Reason DULoxetine (CYMBALTA) 30 mg capsule Therapy completed IMPRESSIONS/PLAN 1. Abnormal nuclear stress test - CT angiogram chest; Future - Basic Metabolic Panel; Future - CBC auto differential; Future 2. Aneurysm of ascending aorta without rupture ([facility]) - Creatinine includes GFR, serum; Future 3. Primary hypertension - Magnesium; Future 4. PAD (peripheral artery disease) ([facility]) Previous cardiac related labs and test results were reviewed and discussed with the patient. Abnormal nuclear stress test 05/2024 - mild focal mid anterior wall reversible defect Mild AR Normal EF TTE 05/2024 Dilated ascending aorta 4.4 cm TTE 05/2024 Hypertension Mild bilateral carotid disease duplex 12/2023 Former heavy tobacco use Obesity, BMI 32 Patient here to establish care. Occasionally shortness of breath with exertion. Had a nuclear stress test in May that showed mild focal mid anterior wall defect that is reversible. Will plan for diagnostic cardiac catheterization to assess coronary anatomy. Recommended no strenuous activities until catheterization completed. Routine blood work ordered. Plan for CTA chest in November to assess size of ascending aortic aneurysm. Order placed today. Follow-up in a month or sooner if needed. Patient to call us with any cardiac questions or concerns. TODAYS ORDERS Orders Placed This Encounter Procedures CT angiogram chest Creatinine includes GFR, serum Basic Metabolic Panel CBC auto differential Magnesium FOLLOW UP Return in about 1 month (around 09/02/2024). PCP: JUDITH MASSEY APRN-CNC MACHINIST 2ND SHIFT Referring Physician: Daina Manley, DO [address] [place] [address] documented in this encounterChildren's [facility]10-08-2024 Miscellaneous Notes* Telephone Encounter - Dalia Joradn CMA - 08/01/2024 1:58 PM EDT Called patient to remind them to bring their most current copy of their medication list with them to their appt. Patient verbalizes understanding. documented in this encounterChildren[facility]10-08-2024 Telephone encounter Note* Telephone Encounter - Dalia Jordan CMA - 08/01/2024 1:58 PM EDT Called patient to remind them to bring their most current copy of their medication list with them to their appt. Patient verbalizes understanding. [facility] [employer] [id number] History of Present illness Narrative* Naomi Acosta NP - 07/27/2024 12:00 PM EDT Images from the original note were not included. CHIEF COMPLAINT REASON FOR VISIT : lightheadedness/faint HPI: Edwin Rodriguez is a 74 y.o. male who presents for [facility]. He is at home. He consents to visit. He is taking 1/2 tab of metoprolol every other day now. He drinks Gatorades. He reports he has had some cardiology issues with lack of oxygen to heart. He needs to follow up with them nextweek. Denies loss of consciousness. His memory seems fine he reports. CURRENT MEDICATIONS: ALLERGIES/DISCONTINUE MEDICATIONS Current Outpatient Medications Medication Instructions Ascorbic Acid (vitamin C) 1000 MG tablet Every 24 hours Aspirin (ASPIR-LOW PO) Oral atorvastatin (LIPITOR) 20 mg, Oral, Every morning cetirizine (ZYRTEC) 10 mg, Oral, Daily PRN cholecalciferol (VITAMIN D-3) 1,000 Units, Oral, Daily doxazosin (CARDURA) 1 mg, Oral, Nightly DULoxetine (CYMBALTA) 30 mg, Oral, Daily fluticasone (Flonase) 50 MCG/ACT nasal spray Every 24 hours hydroCHLOROthiazide (HYDRODIURIL) 12.5 mg, Oral, Every morning losartan (COZAAR) 50 mg, Oral, 2 times daily metoprolol tartrate (LOPRESSOR) 12.5 mg, Oral, Every other day montelukast (SINGULAIR) 10 mg, Oral, Nightly Multiple Vitamin (Multi Vitamin) tablet Every 24 hours tamsulosin (FLOMAX) 0.4 mg, Oral, Daily No Known Allergies Medications Discontinued During This Encounter Medication Reason metoprolol succinate XL (Toprol-XL) 25 MG 24 hr tablet PAST MEDICAL HISTORY: SURGICAL/SOCIAL/FAMILY HISTORY DEPRESSION SCREEN: Past Medical History: Diagnosis Date Allergic rhinitis Asymmetrical hearing loss, left bronchitis hx, maillary sinusitis Dowd angioma, multiple Chronic otitis externa of both ears Circadian rhythm sleep disorder, unspecified type Diverticular disease Epicondylitis, lateral, right Gallstone Gingival and periodontal disease Hematoma RLL history of colon polyp/tubular adenoma 02/2016 History of kidney stones Hypertension (CMS/HCC) Lesion of hard palate Mixed hyperlipidemia (CMS/HCC) Mixed hyperlipidemia (CMS/HCC) Moderate major depression (CMS/HCC) Obesity Obstructive sleep apnea Pipe smoker Reactive airways dysfunction syndrome, mild intermittent, uncomplicated (CMS/HCC) Seborrheic dermatitis Sensorineural hearing loss (SNHL) of both ears Sinus infection 1970 Vertigo Past Surgical History: Procedure Laterality Date COLONOSCOPY 07/31/2005 [facility] COLONOSCOPY 02/27/2016 colonoscopy, polyp, tubular adenoma, diverticulosis/to repeat 5 yrs /[facility] COLONOSCOPY 2022 LITHOTRIPSY x3 LITHOTRIPSY 08/2021 LITHOTRIPSY 2020 MR ANGIOGRAM HEAD W AND WO IV CONTRAST 01/27/2024 MR ANGIOGRAM HEAD W AND WO IV CONTRAST 01/27/2024 [facility] MR MR ANGIOGRAM NECK W AND WO IV CONTRAST 01/27/2024 MR ANGIOGRAM NECK W AND WO IV CONTRAST 01/27/2024 [facility] MR NASAL SEPTUM SURGERY 1981 OTHER SURGICAL HISTORY 1981 nasoseptoplasty without graft PALATE SURGERY 11/17/2022 r/o palate lesion, [facility] [place] UPPER ARM/ELBOW SURGERY UNLISTED Left ARM SURGERY Social History Tobacco Use Smoking status: Former Types: Pipe Quit date: 2020 Years since quittin.7 Smokeless tobacco: Never Vaping Use Vaping status: Never Used Substance Use Topics Alcohol use: Yes Alcohol/week: 7.0 standard drinks of alcohol Types: 7 Standard drinks or equivalent per week Drug use: Never Family History Problem Relation Name Age of Onset Hypertension Mother mejia Heart disease Mother mejia Coronary artery disease Mother mejia Stroke Father cameron Heart disease Father cameron Hypertension Father cameron Urolithiasis Brother nanda 3 brothers Hypertension Brother nanda Diabetes Brother nanda No Known Problems Daughter Depression: Not at risk (02/08/2024) PHQ-2 PHQ-2 Score: 0 REVIEW OF SYMPTOMS: Review of Systems Constitutional: Negative for chills, fatigue and fever. HENT: Negative for tinnitus. Eyes: Negative for photophobia. Respiratory: Negative for shortness of breath. Cardiovascular: Negative for chest pain. Gastrointestinal: Negative for nausea and vomiting. Genitourinary: Negative for frequency. Musculoskeletal: Negative for back pain, gait problem and neck pain. Neurological: Positive for light-headedness. Negative for dizziness, tremors, weakness, numbness and headaches. Psychiatric/Behavioral: Negative. OBJECTIVE: 07/24/2024 8:33 AM 07/04/2024 9:23 AM 05/31/2024 9:26 AM Vitals BMI 32.61 kg/m2 32.61 kg/m2 32.43 kg/m2 BSA (m2) 2.45 m2 2.45 m2 2.45 m2 Systolic 140 110 Diastolic 70 72 Heart Rate 82 SpO2 92 % Temp 97.1 F 97.3 F Height (in) 6' 2 6' 2 Weight (lb) 254 254 252.6 Visit Report Report Report EXAM: Neurological Exam Mental Status Awake, alert and oriented to person, place and time. Oriented to person, place and time. Speech is normal. Language is fluent with no aphasia. PROCEDURE: ASSESSMENT AND PLAN: Diagnoses and all orders for this visit: Microangiopathy (CMS/HCC) Basal ganglia infarction (CMS/HCC) Lumbosacral radiculopathy at L5 Lightheadedness 74 year old male with previous event of altered mental status which could have been due to either TIA vs orthostatic event. CT of head showed remote lacunar infarct which is hard to determine if thisis subacute or chronic. He has risk factors to stroke of age, male, pipe smoker, hypertension and hyperlipidemia. Carotid US with less than 50% stenosis MRA head/neck without significant stenosis or aneurysm. There is arteriosclerosis at the bilateral carotid bifurcations without hemodynamically significant stenoses. Brain MRI with chronic findings of chronic microangiopathy. This can affect cognition and will need to monitor memory. He reports continued but lessened lightheadedness with standing most suggestive of orthostasis. Metoprolol was reduced. He is drinking fluids and sodium. I wouldlike cardiology's opinion as patient reports he did have some abnormal findings with blood flow/oxygen to heard. This may contribute to his symptoms. We could consider medication pending course. Cyproheptadine did not help and was discontinued. EMG BLE with evidence of L5 moderate radiculopathy. This was discussed with patient all questions answered. Total time 20 minutes spent reviewing records, performing medically appropriate exam, counseling , education, ordering medication, tests, and/or procedures, documenting health information into the health record, communicating results to the patient, and coordinating care. BRAIN MRI FINDINGS: There are no extra-axial collections. There is no evidence of hemorrhage. There are no areas of perfusion diffusion signal abnormality to suggest ischemia. The susceptibility images do not demonstrate evidence of hemosiderin deposition within the brain parenchyma or the leptomeninges. There is preservation of the rogers-white matter differentiation. There are no areas of signal abnormality within the brain parenchyma or the posterior fossa to suggest lesion. There is a 7 mm lacunar infarct versus dilated perivascular space in the right basal ganglia. There is prominence of the sulci and ventricles consistent with moderate global cerebral atrophy and chronic involutional changes. The midline structures are intact, the corpus callosum is within normal limits. The region of the pineal gland and the sella turcica are unremarkable. There are no space-occupying lesions in the posterior fossa. The basilar cisterns are patent. The craniocervical junction is unremarkable. The visualized portions of the orbits are within normal limits, the globes are intact. The paranasal sinuses are well aerated, there is a 2.3 cm mucous retention cyst versus polyp in the right maxillary sinus. The calvarium and soft tissues are unremarkable. IMPRESSION: There are chronic involutional changes including atrophy and scattered areas of increased T2/STIR signal, usually associated with chronic microangiopathy. There are no acute intracranial changes documented in this encounterSaint [facility]'s [facility] [id number] History of Present illness Narrative* Ari Sauceda, JEFFERY - 07/24/2024 8:30 AM EDT Images from the original note were not included. Subjective Patient ID: Edwin Rodriguez is a 74 y.o. male who presents for Nail care ( Edwin Rodriguez is a 73 y.o. male who presents for Nail Care. ). HPI HPI Onychomycosis/Toenail Fungus: Symptomatic toenail deformity. Location: bilateral great toes remain problematic/symptomatic. Duration: fairly chronic toenail deformity, multiple years duration. Severity of symptoms: mild-moderate; impacting his ability to wear shoes comfortably. Onset: gradual, without known injury or trauma. Status: problematic/symptomatic over the past several weeks or so. Context: hard to trim, hard to reach; self-care is difficult, ineffective and not practical; increasing risk exposure. Family members unable to provide effective care. Characteristics: discolored, thickened, pain , pressure , elongated , /lifting , ingrowing, crusty; without bleeding or drainage. Relieved by: palliative care measures have provided favorable transient symptom relief. Previous Treatment: palliative care as noted. Reports favorable relief and resolution of recent paronychia left great toe. Risk factors: Medical comorbidities. Polypharmacy Aspirin therapy. mobility, flexibility and dexterity restraints. toenail deformity. Digital and/or shoe trauma and related complications. Aggravated by: shoe gear , pressure , walking; snagging on clothing etc.. Medications Current Outpatient Medications: Ascorbic Acid (vitamin C) 1000 MG tablet, 1 (one) time each day at the same time., Disp: , Rfl: Aspirin (ASPIR-LOW PO), Take by mouth., Disp: , Rfl: atorvastatin (Lipitor) 20 MG tablet, take 1 tablet by mouth every morning, Disp: 90 tablet, Rfl: 3 cetirizine (ZyrTEC) 10 MG tablet, Take 1 tablet (10 mg) by mouth Daily as needed for allergies., Disp: 30 tablet, Rfl: 11 cholecalciferol (Vitamin D-3) 25 MCG (1000 UT) tablet, Take 1,000 Units by mouth in the morning., Disp: , Rfl: doxazosin (Cardura) 1 MG tablet, Take 1 tablet (1 mg) by mouth at bedtime, Disp: 90 tablet, Rfl: 3 DULoxetine (Cymbalta) [address] capsule, Take 1 capsule (30 mg) by mouth Daily, Disp: 90 capsule, Rfl: 3 fluticasone (Flonase) 50 MCG/ACT nasal spray, 1 (one) time each day at the same time., Disp: , Rfl: hydroCHLOROthiazide (HYDRODiuril) 12.5 MG tablet, take 1 tablet by mouth every morning, Disp: 90 tablet, Rfl: 3 losartan (Cozaar) 50 MG tablet, Take 1 tablet (50 mg) by mouth in the morning and 1 tablet (50 mg) before bedtime., Disp: 180 tablet, Rfl: 1 metoprolol succinate XL (Toprol-XL) 25 MG 24 hr tablet, Take 1 tablet (25 mg) by mouth Daily Do notcrush or chew. (Patient taking differently: Take 25 mg by mouth Daily Every other day), Disp: 90 tablet, Rfl: 0 montelukast (Singulair) 10 MG tablet, take 1 tablet by mouth every evening, Disp: 90 tablet, Rfl: 3 Multiple Vitamin (Multi Vitamin) tablet, 1 (one) time each day at the same time., Disp: , Rfl: tamsulosin (Flomax) 0.4 MG 24 hr capsule, Take 0.4 mg by mouth in the morning., Disp: , Rfl: Allergies Patient has no known allergies. Past Surgical History Past Surgical History: Procedure Laterality Date COLONOSCOPY 07/31/2005 [facility] COLONOSCOPY 02/27/2016 colonoscopy, polyp, tubular adenoma, diverticulosis/to repeat 5 yrs /[facility] COLONOSCOPY 2022 LITHOTRIPSY x3 LITHOTRIPSY 08/2021 LITHOTRIPSY 2020 MR ANGIOGRAM HEAD W AND WO IV CONTRAST 01/27/2024 MR ANGIOGRAM HEAD W AND WO IV CONTRAST 01/27/2024 [facility] MR MR ANGIOGRAM NECK W AND WO IV CONTRAST 01/27/2024 MR ANGIOGRAM NECK W AND WO IV CONTRAST 01/27/2024 [facility] MR NASAL SEPTUM SURGERY 1981 OTHER SURGICAL HISTORY 1981 nasoseptoplasty without graft PALATE SURGERY 11/17/2022 r/o palate lesion, [facility] UPPER ARM/ELBOW SURGERY UNLISTED Left ARM SURGERY Family History Family History Problem Relation Name Age of Onset Hypertension Mother mejia Heart disease Mother mejia Coronary artery disease Mother mejia Stroke Father cameron Heart disease Father cameron Hypertension Father cameron Urolithiasis Brother nanda 3 brothers Hypertension Brother nanda Diabetes Brother nanda No Known Problems Daughter Objective General Examination: GENERAL EXAMINATION: alert and oriented. Pleasant disposition. Wearing oxford style shoes. Vascular: DORSALIS PEDIS PULSE: 2/4, bilaterally. POSTERIOR TIBIAL PULSE: 1/4, bilaterally. TEMPERATURE GRADIENT: warm to warm. EDEMA: unremarkable for ankle edema. CAPILLARY FILLING TIME(sec): capillary fill intact bilateral digits less than 3 secs. Neurologic: SHARP SENSATION: tactile and light touch sensation intact. Dermatologic: SKIN FINDINGS: skin turgor is good. HYPERKERATOSIS: no forefoot or digital discrete keratotic lesions are noted. NAIL PATHOLOGY: Bilateral great toes: DSO/pincer toenail deformity: Toenail dystrophy, thickening, discoloration, elongation, crumbly texture; the margins are incurvated/cryptotic, non-inflamed with periungual hyperkeratotic debris; without drainage. 2nd and 3rd digits bilateral: Stable, mild DSO deformity. INGROWN NAIL PATHOLOGY: bilateral great toes is noted. INTERDIGITAL MACERATION: clean, dry, non-inflamed. ULCER: no sign of ulceration or open wound. SKIN MYCOSIS: absent. Orthopedic: JOINT RANGE OF MOTION: functional but limited ankle and subtalar joint range of motion. Functional first MTP joint range of motion. DEFORMITIES: mild HAV deformity bilateral; flexible and reducible. Radiology: Assessment/Plan Symptomatic DSO/cryptosis bilateral great toes Plan: Notes: remains well satisfied with conservative and palliative care measures; again indicated. Patient expresses no interest in oral therapy (potential risk profile). May continue use of vinegar and/or Listerine as directed followed by topical anti-fungal of choice;advised as to limited efficacy; compliance is encouraged. Hygiene and skin care measures discussed as able to do so. Instructions on cuticle massage as able to do so. Procedure: Toenail Debridement: Aseptic technique: power/manual instrumentation: onychodebridement length and thickness, curretage of offending crypotic margins, colby-ungual debris, providing effective pressureand symptom relief, reducing shoe and digital trauma. This note was created with the assistance of a speech recognition program. While intending to generate a timely document that accurately reflects the content of the visit, no guarantee can be provided that every grammatical or spelling mistake has been or will be identified or corrected. Thank you for your understanding. Ari Sauceda DPM documented in this [facility]09-30-2024 Instructions* Patient Instructions* Ari Sauceda DPM - 07/24/2024 8:30 AM EDT As noted documented in this [facility]09-10-2024 History of Present illness Narrative* Judith Massey NP - 07/04/2024 9:30 AM EDT Images from the original note were not included. Angel Rodriguez is a 74 y.o. male presents with chief complaint of Follow-up HPI: HPI Patient is present for a 3 month follow up. SUBJECTIVE: MEDICATIONS: Current Outpatient Medications Medication Instructions Ascorbic Acid (vitamin C) 1000 MG tablet Every 24 hours Aspirin (ASPIR-LOW PO) Oral atorvastatin (LIPITOR) 20 mg, Oral, Every morning cetirizine (ZYRTEC) 10 mg, Oral, Daily PRN cholecalciferol (VITAMIN D-3) 1,000 Units, Oral, Daily doxazosin (CARDURA) 1 mg, Oral, Nightly DULoxetine (CYMBALTA) 30 mg, Oral, Daily fluticasone (Flonase) 50 MCG/ACT nasal spray Every 24 hours hydroCHLOROthiazide (HYDRODIURIL) 12.5 mg, Oral, Every morning losartan (COZAAR) 50 mg, Oral, 2 times daily metoprolol succinate XL (TOPROL-XL) 25 mg, Oral, Daily, Do not crush or chew. montelukast (SINGULAIR) 10 mg, Oral, Nightly Multiple Vitamin (Multi Vitamin) tablet Every 24 hours tamsulosin (FLOMAX) 0.4 mg, Oral, Daily I have reviewed and reconciled the history and medication list with the patient today. REVIEW OF SYMPTOMS: Review of Systems Constitutional: Negative for fatigue. HENT: Negative. Respiratory: Negative. Negative for cough, shortness of breath and wheezing. Cardiovascular: Negative for chest pain and palpitations. Gastrointestinal: Negative. Genitourinary: Negative. Skin: Negative. Neurological: Negative. Psychiatric/Behavioral: Negative. OBJECTIVE: Visit Vitals Smoking Status Former Physical Exam Vitals and nursing note reviewed. Cardiovascular: Rate and Rhythm: Normal rate and regular rhythm. Pulses: Normal pulses. Heart sounds: Normal heart sounds. Pulmonary: Effort: Pulmonary effort is normal. Breath sounds: Normal breath sounds. Abdominal: General: Abdomen is flat. Bowel sounds are normal. Palpations: Abdomen is soft. Musculoskeletal: General: Normal range of motion. Cervical back: Normal range of motion and neck supple. Skin: General: Skin is warm and dry. Neurological: General: No focal deficit present. Mental Status: He is oriented to person, place, and time. ASSESSMENT AND PLAN: Assessment/Plan Diagnoses and all orders for this visit: Primary hypertension (CMS/HCC)-stable continue on current medications Overweight (BMI 25.0-29.9) Abnormal stress test. Patient has cardiology appointment. Reviewed results with patient. Patient will seek immediate medical attention if symptoms return or worsen. documented in this encounterSaint [facility] [id number] Telephone encounter Note* Telephone Encounter - Stella Lane NP - 06/15/2024 7:13 AM EDT Get his last urologist note please, verify with their off if he should be on flomax and cardura together. [facility] Work Phone: [phone]) 851-635908-22-2024 Miscellaneous Notes* Telephone Encounter - Stella Lane NP - 06/15/2024 7:13 AM EDT Get his last urologist note please, verify with their off if he should be on flomax and cardura together. documented in this encounterSaint John's [facility] Community [id number] History of Present illness Narrative* Baltazar Sood MD - 12/13/2023 1:00 PM EST Reason for consult: Nasal obstruction [facility] [place] [place] Chief Complaint: Obstructed breathing Constant, present year round, does not fluctuate. It affects the patients ability to sleep, exercise, and is troubling during the day. Symptoms began: whole life Nasal steroid or spray: Uses flonase BID occasionally, 1 month consistently in September without much improvement Site of obstruction: unknown Previous Otolaryngology Provider: Dr. Dior Previous documentation for this patient was extensively reviewed including specific reasons for evaluation. Complex nature of complaint and medical issues prompting evaluation for surgical consideration by facial plastic & reconstructive surgeon. Previous surgery: 1970s- previous septorhinoplasty, uncertain of details Previous CT/MRI imaging of the nasal cavity and sinuses: I personally reviewed the CT maxillofacial scan from 10/28/23 and this is my impression: S shaped septal deviation with mild right maxillary sinus opacification Trauma history: No Sleep apnea or snoring history: Yes, does not wear a CPAP Allergic rhinitis, sinusitis history: History of 2 sinus infections in the past year Smoking: Quit 2-3 years, previously many years Aesthetic concern: none Past Medical History He has no past medical history on file. Surgical History He has no past surgical history on file. Social History He has no history on file for tobacco use, alcohol use, and drug use. Family History Family History No family history on file. Allergies Patient has no allergy information on record. Physical exam General: Well-developed and well-nourished in appearance. Skin: No rashes or concerning lesions on the visible portions of the skin. Eyes: Extraocular movements intact. Visual robertson grossly normal. Ears: Pinna are normal in shape and position. External canals are patent. Oral Cavity/Oropharynx: Dentition is intact. Mucous membranes moist. No masses or lesions. Respiratory: No respiratory distress. Quiet breathing without stertor or stridor. Cardiovascular: Extremities warm and well perfused Psych: Normal mood and affect. Judgement and insight appropriate. Neuro: Alert and oriented. CN II-XII grossly intact. No focal deficits. Musculoskeletal: Gait intact. Moves all extremities well without apparent deformities. A comprehensive facial exam was performed with the following highlights: Nasal skin type: thick sebaceous External exam: Tip: no significant bulbosity Tip rotation: appropriate Projection: significant projection Dorsum: pinched just dorsal to the supratip Base width: appropriate Asymmetries: Right external dorsal deviation Alar columellar relationship: appropriate Internal exam: Septum: S shaped deviation with fracture noted at caudal septum Inferior turbinates: Hypertrophied bilaterally Nasal valve angle: Reduced R>L Intranasal examination performed with limited view on anterior rhinoscopy. Procedures: Procedure: Rigid diagnostic nasal endoscopy Surgeon: Baltazar Sood MD Anesthesia: None Timeout: Performed Findings: A 0-degree rigid endoscope was passed through the patient's bilateral naris. The first pass was along the floor of the nose to the nasopharynx. The second pass was to the area of the middlemeatus. The third pass was to the sphenoethmoidal recess. Septum: Deviation is S shaped with bilateral obstruction approximately 90% without perforations norsynechia. Internal Nasal Valve: Angle is reduced, narrowing the nasal airway bilaterally. Right nasal cavity: Inferior turbinate: 2+ Inferior meatus: Clear, no discharge, no polyps/masses/lesions Middle meatus: Clear, no discharge, no polyps/masses/lesions Left nasal cavity: Inferior turbinate: 2+ Inferior meatus: Clear, no discharge, no polyps/masses/lesions Middle meatus: Clear, no discharge, no polyps/masses/lesions Nasopharynx: Clear, no discharge, no masses/lesions Modified Wood Maneuver: Performed with a cotton tipped applicator, markedly improves breathing bilaterally. Assessment - This patient has a significant mechanical nasal obstruction. The cause is multifactorial with septal deviation with severe internal nasal valve narrowing, turbinate hypertrophy, and static internal nasal valve collapse. There is gross deformity of the septum including a dorsal component with a previous fracture that would prompt a revision open septorhinoplasty in the setting of previous nasal surgery. Planning for complete caudal septal replacement grafting There is some dynamic nasal valve collapse as well. Correction of this nasal obstruction will require a septoplasty, repair of nasal valve collapse with structural grafting, and a bilateral turbinatereduction. We discussed the medical necessity of this at length, as well as the risks and limitations of the procedures. All questions were answered. Plan - Recommend revision reconstructive septorhinoplasty, nasal valve repair with structural grafting (possible [facility] grafts due to notching) and inferior turbinate reduction with lateralization. documented in this [facility] Work Phone: [phone]) 989-798502-15-2024 History of Present illness Narrative* Ari Sauceda DPM - 12/09/2023 11:00 AM EST Images from the original note were not included. Subjective Patient ID: Edwin Rodriguez is a 73 y.o. male who presents for Toenail Care. HPI Chief complaint: Painful, reddened ingrown toenail medial margin of the left great toe, with intermittent bleeding and localized blister formation; 1-2 weeks' duration; impacting ADLs and his abilityto wear shoes comfortably. Denies injury or trauma. Denies any recent change in activity or shoe gear, typically wears new balance shoes. Denies pustular drainage, streaking or constitutional symptoms. Treatment to date has consisted of Epsom salts soaks, with some degree of relief Medications Current Outpatient Medications: Ascorbic Acid (vitamin C) 1000 MG tablet, 1 (one) time each day at the same time., Disp: , Rfl: Aspirin (ASPIR-LOW PO), Take by mouth., Disp: , Rfl: atorvastatin (Lipitor) 20 MG tablet, Take 1 tablet (20 mg) by mouth in the morning., Disp: 90 tablet, Rfl: 3 cetirizine (ZyrTEC) 10 MG tablet, Take 1 tablet (10 mg) by mouth Daily as needed for allergies., Disp: 30 tablet, Rfl: 11 cholecalciferol (Vitamin D-3) 25 MCG (1000 UT) tablet, Take 1,000 Units by mouth in the morning., Disp: , Rfl: doxazosin (Cardura) 1 MG tablet, Take 1 tablet (1 mg) by mouth at bedtime., Disp: 90 tablet, Rfl: 3 DULoxetine (Cymbalta) [address] capsule, take 1 capsule by mouth once daily, Disp: 90 capsule, Rfl: 0 fluticasone (Flonase) 50 MCG/ACT nasal spray, 1 (one) time each day at the same time., Disp: , Rfl: hydroCHLOROthiazide (HYDRODiuril) 12.5 MG tablet, take 1 tablet by mouth every morning, Disp: 90 tablet, Rfl: 3 ibuprofen 600 MG tablet, take 1 tablet by mouth every 6 hours for pain WITH TYLENOL, Disp: , Rfl: ketoconazole (Nizoral) 2 % shampoo, Apply topically 2 (two) times a week., Disp: 100 mL, Rfl: 3 losartan (Cozaar) 50 MG tablet, take 1 tablet by mouth every morning and at bedtime, Disp: , Rfl: metoprolol succinate XL (Toprol-XL) 50 MG 24 hr tablet, Take 50 mg by mouth in the morning., Disp: , Rfl: montelukast (Singulair) 10 MG tablet, Take 10 mg by mouth at bedtime., Disp: , Rfl: Multiple Vitamin (Multi Vitamin) tablet, 1 (one) time each day at the same time., Disp: , Rfl: ondansetron ODT (Zofran-ODT) 4 MG disintegrating tablet, dissolve 1 tablet ON TONGUE every 4 hours if needed for nausea OR vomiting for up to 2 days, Disp: , Rfl: tamsulosin (Flomax) 0.4 MG 24 hr capsule, Take 0.4 mg by mouth in the morning., Disp: , Rfl: venlafaxine XR (Effexor XR) 150 MG 24 hr tablet, Take 150 mg by mouth in the morning. Take with food.., Disp: , Rfl: venlafaxine XR (Effexor XR) 37.5 MG 24 hr tablet, Take 37.5 mg by mouth in the morning. Take with food.., Disp: , Rfl: Allergies Patient has no known allergies. Past Surgical History Past Surgical History: Procedure Laterality Date COLONOSCOPY 07/31/2005 [facility] COLONOSCOPY 02/27/2016 colonoscopy, polyp, tubular adenoma, diverticulosis/to repeat 5 yrs /[facility] LITHOTRIPSY x3 LITHOTRIPSY 08/2021 LITHOTRIPSY 2020 NASAL SEPTUM SURGERY 1980 OTHER SURGICAL HISTORY 1980 nasoseptoplasty without graft PALATE SURGERY 11/17/2022 r/o palate lesion, [facility] UPPER ARM/ELBOW SURGERY UNLISTED Left ARM SURGERY Family History Family History Problem Relation Name Age of Onset Hypertension Mother mejia Heart disease Mother mejia Coronary artery disease Mother mejia Stroke Father cameron Heart disease Father cameron Hypertension Father cameron Urolithiasis Brother nanda 3 brothers Hypertension Brother nanda Diabetes Brother nanda No Known Problems Daughter Objective General Examination: GENERAL EXAMINATIONalert and oriented. Pleasant disposition. Wearing new balance shoes. Vascular: DORSALIS PEDIS PULSE:2/4, bilaterally. POSTERIOR TIBIAL PULSE:1/4, bilaterally. TEMPERATURE GRADIENT:warm to warm. EDEMA:unremarkable for ankle edema. CAPILLARY FILLING TIME(sec):capillary fill intact bilateral digits less than 3 secs. Neurologic: SHARP SENSATION:tactile and light touch sensation intact. Dermatologic: SKIN FINDINGS:skin turgor is good. HYPERKERATOSIS:no forefoot or digital discrete keratotic lesions are noted. NAIL PATHOLOGY:Bilateral great toes: DSO/pincer toenail deformity: Toenail dystrophy, thickening, discoloration, elongation, crumbly texture; the margins are incurvated/cryptotic with periungual hyperkeratotic debris; without drainage. 2nd digits bilateral: DSO deformity. INGROWN NAIL PATHOLOGY: focused exam left great toe: The distal medial paronychial margin is tender, locally inflamed with dried eschar. Keratotic slough; with a small amount of serous drainage. The medial nail plate margin is deeply incurvated/cryptotic. Unremarkable for ascending cellulitis or streaking. The lateral paronychial margin is non-tender, non-inflamed. INTERDIGITAL MACERATION:clean, dry, non-inflamed. ULCER:no sign of ulceration or open wound. SKIN MYCOSIS:absent. Orthopedic: JOINT RANGE OF MOTION:functional but limited ankle and subtalar joint range of motion. Functional first MTP joint range of motion. DEFORMITIES:mild HAV deformity bilateral; flexible and reducible. Radiology: Assessment/Plan Symptomatic acute paronychia medial margin left great toe. DSO/cryptosis bilateral great toes by history Plan: review of clinical findings, suspected etiology and triggering factors, aggravating factors, treatment strategy and objectives. Left great toe: Partial toenail avulsion/decompression as described. Instructions to cleanse daily and apply Neosporin ointment or equivalent. May continue warm Epson salt soaks as necessary. Tylenol as needed for comfort. Procedure: Left great toe: [place] agreement against local anesthetic: Aseptic technique: Partial toenail avulsion/decompression of the medial margin; with curettage of all marginal debris; providing effective pressure and symptom relief. Site cleansing.. Amerigel dressing. This note was created with the assistance of a speech recognition program. While intending to generate a timely document that accurately reflects the content of the visit, no guarantee can be provided that every grammatical or spelling mistake has been or will be identified or corrected. Thank you for your understanding. Ari Sauceda DPM documented in this [facility]02-15-2024 Instructions* Patient Instructions* Ari Sauceda DPM - 12/09/2023 11:00 AM EST Instructions as noted documented in this [facility]12-12-2023 Hospital Discharge instructions Patient Education 10/05/2023 10:57:18 Benign Prostatic Hyperplasia Benign Prostatic Hyperplasia Benign prostatic hyperplasia (BPH) is an enlarged prostate gland that is caused by the normal agingprocess. The prostate may get bigger as a man gets older. The condition is not caused by cancer. The prostate is a walnut-sized gland that is involved in the production of semen. It is located in front of the rectum and below the bladder. The bladder stores urine. The urethra carries stored urine ou t of the body. An enlarged prostate can press on the urethra. This can make it harder to pass urine. The buildup of urine in the bladder can cause infection. Back pressure and infection may progress to bladder damage and kidney (renal) failure. What are the causes? This condition is part of the normal aging process. However, not all men develop problems from thiscondition. If the prostate enlarges away from the urethra, urine flow will not be blocked. If it enlarges toward the urethra and compresses it, there will be problems passing urine. What increases the risk? This condition is more likely to develop in men older than 50 years. What are the signs or symptoms? Symptoms of this condition include: Getting up often during the night to urinate. Needing to urinate frequently during the day. Difficulty starting urine flow. Decrease in size and strength of your urine stream. Leaking (dribbling) after urinating. Inability to pass urine. This needs immediate treatment. Inability to completely empty your bladder. Pain when you pass urine. This is more common if there is also an infection. Urinary tract infection (UTI). How is this diagnosed? This condition is diagnosed based on your medical history, a physical exam, and your symptoms. Tests will also be done, such as: A post-void bladder scan. This measures any amount of urine that may remain in your bladder after you finish urinating. A digital rectal exam. In a rectal exam, your health care provider checks your prostate by putting a lubricated, gloved finger into your rectum to feel the back of your prostate gland. This exam detects the size of your gland and any abnormal lumps or growths. An exam of your urine (urinalysis). A prostate specific antigen (PSA) screening. This is a blood test used to screen for prostate cancer. An ultrasound. This test uses sound waves to electronically produce a picture of your prostate gland. Your health care provider may refer you to a specialist in kidney and prostate diseases (urologist). How is this treated? Once symptoms begin, your health care provider will monitor your condition (active surveillance or watchful waiting). Treatment for this condition will depend on the severity of your condition. Treatment may include: Observation and yearly exams. This may be the only treatment needed if your condition and symptoms are mild. Medicines to relieve your symptoms, including: ?Medicines to shrink the prostate. ?Medicines to relax the muscle of the prostate. Surgery in severe cases. Surgery may include: ?Prostatectomy. In this procedure, the prostate tissue is removed completely through an open incision or with a laparoscope or robotics. ?Transurethral resection of the prostate (TURP). In this procedure, a tool is inserted through the opening at the tip of the penis (urethra). It is used to cut away tissue of the inner core of the prostate. The pieces are removed through the same opening of the penis. This removes the blockage. ?Transurethral incision (TUIP). In this procedure, small cuts are made in the prostate. This lessens the prostate's pressure on the urethra. ?Transurethral microwave thermotherapy (TUMT). This procedure uses microwaves to create heat. The heat destroys and removes a small amount of prostate tissue. ?Transurethral needle ablation (TUNA). This procedure uses radio frequencies to destroy and remove a small amount of prostate tissue. ?Interstitial laser coagulation (ILC). This procedure uses a laser to destroy and remove a small amount of prostate tissue. ?Transurethral electrovaporization (TUVP). This procedure uses electrodes to destroy and remove a small amount of prostate tissue. ?Prostatic urethral lift. This procedure inserts an implant to push the lobes of the prostate away from the urethra. Follow these instructions at home: Take qpto-aly-hwnwaev and prescription medicines only as told by your health care provider. Monitor your symptoms for any changes. Contact your health care provider with any changes. Avoid drinking large amounts of liquid before going to bed or out in public. Avoid or reduce how much caffeine or alcohol you drink. Give yourself time when you urinate. Keep all follow-up visits. This is important. Contact a health care provider if: You have unexplained back pain. Your symptoms do not get better with treatment. You develop side effects from the medicine you are taking. Your urine becomes very dark or has a bad smell. Your lower abdomen becomes distended and you have trouble passing urine. Get help right away if: You have a fever or chills. You suddenly cannot urinate. You feel light-headed or very dizzy, or you faint. There are large amounts of blood or clots in your urine. Your urinary problems become hard to manage. You develop moderate to severe low back or flank pain. The flank is the side of your body between the ribs and the hip. These symptoms may be an emergency. Get help right away. Call 911. Do not wait to see if the symptoms will go away. Do not drive yourself to the hospital. Summary Benign prostatic hyperplasia (BPH) is an enlarged prostate that is caused by the normal aging process. It is not caused by cancer. An enlarged prostate can press on the urethra. This can make it hard to pass urine. This condition is more likely to develop in men older than 50 years. Get help right away if you suddenly cannot urinate. This information is not intended to replace advice given to you by your health care provider. Make sure you discuss any questions you have with your health care provider. Document Revised: 04/29/2022 Document Reviewed: 04/29/2022 [employer] Patient Education 2022 [employer]. Follow Up Care 08/04/2022 10:20:07 With:NORM JEFFERS, Lucius Moya, URL Address: [facility] [employer] [place] [place] [id number]- When: Unknown [facility] [employer] 06-14-2023 Evaluation note* Encounter Date Diagnosis Assessment Notes Treatment Notes Treatment Clinical Notes Mar, Viral upper respiratory tract in fection (ICD-10 - J06.9) Drink plenty fluids, get plenty of rest. Continue home medications as prescribed. Continue to use the Flonase inhaler as prescribed. Consider taking Mucinex for congestion. Follow-up with your familyphysician if no improvement in 2 to 3 days Mar,History of COVID-19 (ICD-10 - Z86.16) Mar,OtherManage COVID-19 symptoms at home material was printed [employer] Other 01-24-2023 NoteOPERATIVE NOTE OPERATION DATE: 11/17/2022 PRIMARY CARE PROVIDER: Daina Manley D.O. SURGEON: Micheline Dior M.D. PREOPERATIVE DIAGNOSIS: Left hard palate mass. POSTOPERATIVE DIAGNOSIS: Left hard palate mass. PROCEDURE: Removal of left hard palate mass. ANESTHESIA: Lidocaine 1% with 1:100,000 epinephrine. INDICATIONS: This 72-year-old man presented with a left paramedian hard palate mass that his dentist felt has been growing over time. PROCEDURE: Patient identified in the holding area and taken back to the OR where he was placed in the supine position. Lidocaine 1% with 1:100,000 epinephrine was infiltrated around the base of the patient's palate mass. After waiting adequate time for hemostasis and anesthesia, the palate was prepped with Betadine. An 11-blade knife was used to make an incision around the lesion and then a sharp scissor was used to undermine the lesion and remove it. The patient tolerated the procedure well and had brief, self-limited bleeding. He was then discharged home in good condition.[facility] 08-04-2022 Hospital Discharge instructions Patient Education 08/04/2022 10:18:29 Dietary Guidelines to Help Prevent Kidney Stones Dietary Guidelines to Help Prevent Kidney Stones Kidney stones are deposits of minerals and salts that form inside your kidneys. Your risk of developing kidney stones may be greater depending on your diet, your lifestyle, the medicines you take, and whether you have certain medical conditions. Most people can reduce their chances of developing kidney stones by following the instructions below. Depending on your overall health and the type of kidney stones you tend to develop, your dietitian may give you more specific instructions. What are tips for following this plan? Reading food labels Choose foods with no salt added or low-salt labels. Limit your sodium intake to less than 1500 mg per day. Choose foods with calcium for each meal and snack. Try to eat about 300 mg of calcium at each meal.Foods that contain 200 500 mg of calcium per serving include: ?8 oz (237 ml) of milk, fortified nondairy milk, and fortified fruit juice. ?8 oz (237 ml) of kefir, yogurt, and soy yogurt. ?4 oz (118 ml) of tofu. ?1 oz of cheese. ?1 cup (300 g) of dried figs. ?1 cup (91 g) of cooked broccoli. ?1 3 oz can of sardines or mackerel. Most people need 1000 to 1500 mg of calcium each day. Talk to your dietitian about how much calciumis recommended for you. Shopping Buy plenty of fresh fruits and vegetables. Most people do not need to avoid fruits and vegetables, even if they contain nutrients that may contribute to kidney stones. When shopping for convenience foods, choose: ?Whole pieces of fruit. ?Premade salads with dressing on the side. ?Low-fat fruit and yogurt smoothies. Avoid buying frozen meals or prepared deli foods. Look for foods with live cultures, such as yogurt and kefir. Cooking Do not add salt to food when cooking. Place a salt shaker on the table and allow each person to addhis or her own salt to taste. Use vegetable protein, such as beans, textured vegetable protein (TVP), or tofu instead of meat in pasta, casseroles, and soups. Meal planning Eat less salt, if told by your dietitian. To do this: ?Avoid eating processed or premade food. ?Avoid eating fast food. Eat less animal protein, including cheese, meat, poultry, or fish, if told by your dietitian. To dothis: ?Limit the number of times you have meat, poultry, fish, or cheese each week. Eat a diet free of meat at least 2 days a week. ?Eat only one serving each day of meat, poultry, fish, or seafood. ?When you prepare animal protein, cut pieces into small portion sizes. For most meat and fish, one serving is about the size of one deck of cards. Eat at least 5 servings of fresh fruits and vegetables each day. To do this: ?Keep fruits and vegetables on hand for snacks. ?Eat 1 piece of fruit or a handful of berries with breakfast. ?Have a salad and fruit at lunch. ?Have two kinds of vegetables at dinner. Limit foods that are high in a substance called oxalate. These include: ?Spinach. ?Rhubarb. ?Beets. ?Potato chips and mohawk fries. ?Nuts. If you regularly take a diuretic medicine, make sure to eat at least 1 2 fruits or vegetables high in potassium each day. These include: ?Avocado. ?Banana. ?Swain, prune, carrot, or tomato juice. ?Baked potato. ?Cabbage. ?Beans and split peas. General instructions Drink enough fluid to keep your urine clear or pale yellow. This is the most important thing you can do. Talk to your health care provider and dietitian about taking daily supplements. Depending on your health and the cause of your kidney stones, you may be advised: ?Not to take supplements with vitamin C. ?To take a calcium supplement. ?To take a daily probiotic supplement. ?To take other supplements such as magnesium, fish oil, or vitamin B6. Take all medicines and supplements as told by your health care provider. Limit alcohol intake to no more than 1 drink a day for non women and 2 drinks a day for men. One drink equals 12 oz of beer, 5 oz of wine, or 1 oz of hard liquor. Lose weight if told by your health care provider. Work with your dietitian to find strategies and an eating plan that works best for you. What foods are not recommended? Limit your intake of the following foods, or as told by your dietitian. Talk to your dietitian about specific foods you should avoid based on the type of kidney stones and your overall health. Grains Breads. Bagels. Rolls. Baked goods. Salted crackers. Cereal. Pasta. Vegetables Spinach. Rhubarb. Beets. Canned vegetables. Pickles. Olives. Meats and other protein foods Nuts. Nut butters. Large portions of meat, poultry, or fish. Salted or cured meats. Deli meats. Hotdogs. Sausages. Dairy Cheese. Beverages Regular soft drinks. Regular vegetable juice. Seasonings and other foods Seasoning blends with salt. Salad dressings. Canned soups. Soy sauce. Ketchup. Barbecue sauce. Canned pasta sauce. Casseroles. Pizza. Lasagna. Frozen meals. Potato chips. Icelandic fries. Summary You can reduce your risk of kidney stones by making changes to your diet. The most important thing you can do is drink enough fluid. You should drink enough fluid to keep your urine clear or pale yellow. Ask your health care provider or dietitian how much protein from animal sources you should eat eachday, and also how much salt and calcium you should have each day. This information is not intended to replace advice given to you by your health care provider. Make sure you discuss any questions you have with your health care provider. Document Released: 02/05/2012 Document Revised: 01/31/2020 Document Reviewed: 09/21/2017 Brevity Patient Education 2020 [employer] Follow Up Care 08/01/2021 09:40:27 With:NORM JEFFERS, Lucius Moya, URL Address: [id number] [address]- When:1 year Comments:W/ BERNIE [facility] Evaluation + Plan note Future Appointments Appointment Date:08/06/2023 09:45:00 AM Scheduled Provider:Lucius CA MD [facility] Office Visit [facility] [place] Evaluation + Plan note Future Appointments Appointment Date:10/28/2023 09:00:00 AM Scheduled Provider: Location:.[facility] Appointment Type:CT Sinus/Orbits/Maxillofacial () Appointment Date:10/03/2024 09:30:00 AM Scheduled Provider:Lucius CA MD Location:[facility] [place] Appointment Type:URO Office Visit Future Scheduled Tests Radiology* CT Maxillofacial w/o Contrast 10/28/23 [facility] Evaluation + Plan note Future Appointments Appointment Date:10/03/2024 09:30:00 AM Scheduled Provider:Lucius CA MD [facility] App[facility]ments Appointment Date:11/20/2024 02:15:00 PM Scheduled Provider:Lucius CA MD [facility] Appoint[facility] Type:URO Procedure 15 min [facility] [place] Evaluation + Plan note Future Appointments Appointment Date:10/02/2025 10:00:00 AM Scheduled Provider:Lucius CA MD [facility] Appoint[facility] Type:URO Office Visit [facility] [place] evaluation note* Diagnosis Primary hypertension Unspecified essential hypertension Mixed hyperlipidemia Sleep apnea, unspecified type Family history of coronary artery disease Family history of ischemic heart disease documented in this encounter [employer] Phone: evalxscxuh note* Diagnosis Primary hypertension Unspecified essential hypertension Mixed hyperlipidemia Sleep apnea, unspecified type Family history of coronary artery disease Family history of ischemic heart disease documented in this encounter [employer] Phone: evaluation note* Diagnosis Primary hypertension Unspecified essential hypertension Mixed hyperlipidemia Sleep apnea, unspecified type Family history of coronary artery disease Family history of ischemic heart disease documented in this encounter [facility] Work Phone: evaluation note* Diagnosis Paronychia of great toe of left foot- Primary Onychocryptosis Ingrowing nail Pain of left great toe Difficulty walking Difficulty in walking [facility] Diagnosis Deviated septum- Primary Deviated nasal septum Difficulty breathing Other dyspnea and respiratory abnormality Hypertrophy of nasal turbinates Nasal valve collapse documented in this encounter [facility] Work Phone: Evaluation note* Diagnosis Microangiopathy (CMS/HCC)- Primary Unspecified peripheral vascular disease 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 Lumbosacral radiculopathy at L5 Lightheadedness Dizziness and giddiness documented in this encounter [facility]* Diagnosis Primary hypertension (CMS/HCC) Unspecified essential hypertension [facility]* Diagnosis Acute non-recurrent pansinusitis- Primary [facility]* Diagnosis Primary hypertension (CMS/HCC)- Primary Unspecified essential hypertension NETTE (obstructive sleep apnea) Obstructive sleep apnea (adult) (pediatric) Enlarged aorta (CMS/HCC) Other specified disorders of arteries and arterioles Diverticular disease of colon Diverticulosis of colon (without mention of hemorrhage) Benign prostatic hyperplasia with urinary frequency Spinal stenosis of lumbar region with neurogenic claudication Obesity (BMI 30.0-34.9) Prediabetes Other abnormal glucose Pipe smoker Moderate episode of recurrent major depressive disorder (CMS/HCC) Medicare annual wellness visit, subsequent Mixed hyperlipidemia (CMS/HCC) Mixed hyperlipidemia Recurrent major depressive disorder, in partial remission (HCC) (CMS/HCC) Screening PSA (prostate specific antigen) Special screening for malignant neoplasm of prostate Visit for suture removal [facility]* Diagnosis Primary hypertension (CMS/HCC)- Primary Unspecified essential hypertension Enlarged aorta (CMS/HCC) Other specified disorders of arteries and arterioles documented [facility]* Diagnosis Primary hypertension (CMS/HCC)- Primary Unspecified essential hypertension Overweight (BMI 25.0-29.9) Overweight Abnormal cardiovascular stress test Other nonspecific abnormal cardiovascular system function study documented [facility]* Diagnosis Dermatophytosis of nail- Primary Dystrophic nail Other specified disease of nail Pain around toenail, right foot Pain around toenail, left foot [facility]* Diagnosis Dermatophytosis of nail- Primary Dystrophic nail Other specified disease of nail Pain around toenail, right foot Pain around toenail, left foot documented in this encounter [facility]* Diagnosis Fever, unspecified fever cause- Primary Acute non-recurrent maxillary sinusitis Pulmonary nodule Other diseases of lung, not elsewhere classified Primary hypertension ([facility]) Unspecified essential hypertension documented in this encounter [facility]* Diagnosis Acute non-recurrent maxillary sinusitis- Primary Allergic rhinitis due to other allergic trigger, unspecified seasonality documented in this encounter [facility]* Diagnosis Abnormal nuclear stress test- Primary Aneurysm of ascending aorta without rupture ([facility]) Primary hypertension Unspecified essential hypertension PAD (peripheral artery disease) ([facility]) Unspecified peripheral vascular disease Abnormal cardiovascular stress test- Primary Other nonspecific abnormal cardiovascular system function study Abnormal cardiovascular stress test Other nonspecific abnormal cardiovascular system function study [facility] Diagnosis Abnormal cardiovascular stress test- Primary Other nonspecific abnormal cardiovascular system function study [facility] Diagnosis Enlarged aorta ([facility])- Primary Other specified disorders of arteries and arterioles Mixed hyperlipidemia [facility] Diagnosis Acute non-recurrent sinusitis, unspecified location- Primary documented in this encounter [facility]* Diagnosis Dermatophytosis of nail- Primary Dystrophic nail Other specified disease of nail Pain around toenail, right foot Pain around toenail, left foot documented in this encounter [facility]* Diagnosis Acute non-recurrent sinusitis, unspecified location- Primary documented in this encounter [facility]* Diagnosis Primary hypertension- Primary Unspecified essential hypertension Major depressive disorder, recurrent, moderate (HCC) Major depressive disorder, recurrent episode, moderate Lung nodule Other diseases of lung, not elsewhere classified documented in this encounter [facility]* Diagnosis Allergic conjunctivitis of both eyes and rhinitis documented in this encounter [facility]* Diagnosis Dermatophytosis of nail- Primary Dystrophic nail Other specified disease of nail Pain around toenail, right foot Pain around toenail, left foot documented [facility]* Diagnosis Viral upper respiratory infection- Primary Acute upper respiratory infections of unspecified site Lower resp. tract infection Other diseases of respiratory system, not elsewhere classified documented in this encounter [facility]* Diagnosis Dermatophytosis of nail- Primary Dystrophic nail Other specified disease of nail Pain around toenail, right foot Pain around toenail, left foot documented in this encounter [facility]* Diagnosis Enlarged aorta- Primary Other specified disorders of arteries and arterioles Aneurysm of ascending aorta without rupture Primary hypertension Unspecified essential hypertension documented in this encounter [facility] N[facility]ative - Reported* Type Description Date Medical History HTN (hypertension) Medical HistoryAnxietyMedical HistoryAllergic rhinitis due to allergenMedical HistoryBPH (benign prostatic hyperplasia) [employer] Other Hospital course Narrative No data available for this section [facility] Hospital Discharge instructions No data available for this section [facility] filedocumented in this encounter [facility]ructionsNot on filedocumented in this encounter [facility]ructionsNot on filedocumented in this encounter [facility]ructionsNot on filedocumented in this encounter [facility]ructionsNot on filedocumented in this encounter [facility]ructionsNot on filedocumented in this encounter [facility]InstructionsNot on filedocumented in this encounter [facility] note No data available for this section [facility] Summary Purpose Family History No Family History Records FoundNo Family History Records FoundNo Family History Records Found No data available for this section No data available for this section No Family History Records FoundNo Family History Records Found No data available for this section No Family History Records Found No data available for this section No Family History Records FoundNo Family History Records Found Advance Directives No Advanced Directives Records FoundNo Advanced Directives Records FoundNo Advanced Directives Records FoundNo Advanced Directives Records FoundNo Advanced Directives Records FoundNo Advanced Directives Records FoundNo Advanced Directives Records FoundNo Advanced Directives Records Found Reason for Referral SpecialtyDiagnoses / ProceduresReferred By ContactReferred To ContactRadiology Diagnoses Abnormal nuclear stress test Procedures CT angiogram chest CT angiogram chest Piper Knight MD [address] [place] [address] Referral IDStatusReasonStart DateExpiration DateVisits RequestedVisits [id number] / ProceduresReferred By ContactReferred To ContactCardiology Diagnoses Primary hypertension Mixed hyperlipidemia Sleep apnea, unspecified type Family history of coronary artery disease Procedures EKG 12 Lead Heath Latham MD [address] [place] [address] Referral IDStatusReasonStart DateExpiration DateVisits RequestedVisits [id number] Review/ Additional Source Comments (unrecognized sect ion and content) No Status Records FoundNo Status Records FoundNo Status Records FoundNo Status Records FoundNo Status Records FoundNo Status Records FoundNo Status Records FoundNo Status Records Found INFORMATION SOURCE (unrecogn ized section and content) DATE CREATED AUTHOR 03/22/2022 [facility] Product Support Representative DATE CREATED AUTHOR AUTHOR'S ORGANIZ ATION 10/27/2022 [facility] DATE CREATED AUTHOR AUTHOR'S ORGANIZ ATION 11/21/2022 [facility] DATE CREATED AUTHOR AUTHOR'S ORGANIZ ATION 12/14/2023 [facility] DATE CREATED AUTHOR AUTHOR'S ORGANIZ ATION 08/11/2024 [facility] DATE CREATED AUTHOR AUTHOR'S ORGANIZ ATION 11/21/2024 [facility] DATE CREATED AUTHOR AUTHOR'S ORGANIZ ATION 08/23/2025 [facility] DATE CREATED AUTHOR AUTHOR'S ORGANIZ ATION 08/27/2025 [facility] Patient Care team informatio n (unrecognized section and content) Team MemberRelationshipSpecialtyStart DateEnd Date Daina Manley, DO [address] [place] [address] PCP - General10/27/22Team MemberRelationshipSpecialtyStart DateEnd Date Daina Manley, DO [address] [place] [address] PCP - General10/27/22Team MemberRelationshipSpecialtyStart DateEnd Date Daina Manley, DO [address] [place] [address] PCP - General10/27/22Team MemberRelationshipSpecialtyStart DateEnd Date Daina Manley, DO [address] [place] [address] PCP - General10/27/22Team MemberRelationshipSpecialtyStart DateEnd Date Pito Riley PCP - [employer]10/25/22 Daina Manley G, DO [address] [place] [address] PCP - GeneralFamily Medicine04/13/23Team MemberRelationshipSpecialtyStart DateEnd Date Pito Riley PCP - [employer]10/25/22 Daina Manley G, DO [address] [place] [address] PCP - GeneralFamily Medicine04/13/23Team MemberRelationshipSpecialtyStart DateEnd Date Pito Riley PCP - [employer]10/25/21 Dalia Morales MD [address] [place] [address] PCP - GeneralFamily Medicine12/27/23 Judith Massey NP [address] [place] [address] Nurse Practitionermily Medicine12/27/23Team MemberRelationshipSpecialtyStart DateEnd Date Pito Riley PCP - [employer]10/25/21 Dalia Morales MD [address] [place] [address] PCP - GeneralFamily Medicine12/27/23 Judith Massey NP [address] [place] [address] Nurse PractitionerFloyd County Medical Centerly Medicine12/27/23Team MemberRelationshipSpecialtyStart DateEnd Date Pito Riley PCP - [employer]et[employer]10/25/21 Dalia Morales MD [address] [place] [address] PCP - GeneralFamily Medicine12/27/23 Judith Massey NP [address] [place] [address] Nurse PractitionerFloyd County Medical Centerly Medicine12/27/23Team MemberRelationshipSpecialtyStart DateEnd Date Pito Riley PCP - [employer]et[employer]10/25/21 Dalia Morales MD [address] [place] [address] PCP - GeneralFamily Medicine12/27/23 Judith Massey NP [address] [place] [address] Nurse Practitionermily Medicine12/27/23Team MemberRelationshipSpecialtyStart DateEnd Date Pito Riley PCP - [employer]10/25/21 Dalia Morales MD [address] [place] [address] PCP - GeneralFamily Medicine12/27/23 Judith Massey NP [address] [place] [address] Nurse Practitionermily Medicine12/27/23Team MemberRelationshipSpecialtyStart DateEnd Date Pito Riley PCP - [employer]10/25/21 Dalia Morales MD [address] [place] [address] PCP - GeneralFamily Medicine12/27/23 Judith Massey NP [address] [place] [address] Nurse Practitionermily Medicine12/27/23Team MemberRelationshipSpecialtyStart DateEnd Date Pito Riley PCP - [employer]et[employer]10/25/21 Dalia Morales MD [address] [place] [address] PCP - GeneralFamily Medicine12/27/23 Judith Massey NP [address] [place] [address] Nurse PractitionerFloyd County Medical Centerly Medicine12/27/23Team MemberRelationshipSpecialtyStart DateEnd Date Pito Riley PCP - [employer]et[employer]10/25/21 Dalia Morales MD [address] [place] [address] PCP - Generalmily Medicine12/27/23 Judith Massey NP [address] [place] [address] [facility] Medicine12/27/23Te MemberRelationshipSpecialtyStart DateEnd Date Dalia Morales MD [address] [place] [address] PCP - GeneralWinchendon Hospital Medicine12/27/23 Daina Manley DO [address] [place] [address] PCP - Aetna10/25/21 Judith Massey NP [address] [place] [address] Nurse PractitionerFloyd County Medical Centerly Medicine12/27/23Team MemberRelationshipSpecialtyStart DateEnd Date Dalia Morales MD [address] [place] [address] PCP - Generalmily Medicine12/27/23 Daina Manley DO [address] [place] [address] PCP - Aetna10/25/21 Judith Massey NP [address] [place] [address] Nurse PractitionerW[facility]hen[facility] Medicine12/27/23Team MemberRelationshipSpecialtyStart DateEnd Date Dalia Morales MD [address] [place] [address] PCP - GeneralWinchendon Hospital Medicine12/27/23 Daina Manley DO [address] [place] [address] PCP - Aetna10/25/21 Judith Massey NP [address] [place] [address] Nurse PractitionerW[facility]hen[facility] Medicine12/27/23Team MemberRelationshipSpecialtyStart DateEnd Date Dalia Morales MD [address] [place] [address] PCP - GeneralWinchendon Hospital Medicine12/27/23 Daina Manley DO [address] [place] [address] PCP - Aetna10/25/21 Judith Massey NP [address] [place] [address] Nurse PractitionerW[facility]hendon Hospital Medicine12/27/23Team MemberRelationshipSpecialtyStart DateEnd Date Dalia Morales MD [address] [place] [address] PCP - GeneralFamily Medicine12/27/23 Daina Manley DO [address] [place] [address] PCP - Aetna10/25/21 Judith Massey AUTOMOTIVE DESIGN DRAFTER [address] [place] [address] Nurse PractitionerFamily Medicine12/27/23Team MemberRelationshipSpecialtyStart DateEnd Date Dalia Morales MD [address] [place] [address] PCP - Generalmily Medicine12/27/23 Daina Manley DO [address] [place] [address] PCP - Aetna10/25/21 Judith Massey AUTOMOTIVE DESIGN DRAFTER [address] [place] [address] Nurse PractitionerFloyd County Medical Centerly Medicine12/27/23Team MemberRelationshipSpecialtyStart DateEnd Date Judith Massey APRN-CNC MACHINIST 2ND SHIFT [address] [place] [address] PCP - GeneralInternal Medicine06/20/24Team MemberRelationshipSpecialtyStart Date End Date Judith Massey APRN-CNC MACHINIST 2ND SHIFT [address] [place] [address] PCP - GeneralInternal Medicine06/20/24Team MemberRelationshipSpecialtyStart Date End Date Judith Massey APRN-CNC MACHINIST 2ND SHIFT [address] [place] [address] PCP - GeneralInternal Medicine06/20/24Team MemberRelationshipSpecialtyStart Date End Date Judith Massey CLINICAL TRIALS MANAGER-CNC MACHINIST 2ND SHIFT [address] [place] [address] PCP - GeneralInternal Medicine06/20/24Team MemberRelationshipSpecialtyStart Date End Date Judith Massey CLINICAL TRIALS MANAGER-CNC MACHINIST 2ND SHIFT [address] [facility] [place] [address] PCP - GeneralInternal Medicine06/20/24Team MemberRelationshipSpecialtyStart Date End Date Judith Massey CLINICAL TRIALS MANAGER-CNC MACHINIST 2ND SHIFT [address] [place] [facility] [address] PCP - GeneralInternal Medicine06/20/24Team MemberRelationshipSpecialtyStart Date End Date Dalia Morales MD [address] [place] [address] PCP - GeneralFamily Medicine12/27/23 Daina Manley DO [address] [id number] PCP - Aetna10/25/21 Judith Massey, MIKAYLA [address] [place] [facility] [place] [address] Nurse PractitionerFamily Medicine12/27/23Team MemberRelationshipSpecialtyStart DateEnd Date Dalia Morales MD [address] [place] [address] PCP - GeneralFamily Medicine12/27/23 Daina Manley DO [address] [facility] [address] [place] [address] PCP - Aetna10/25/21 Judith Massey AUTOMOTIVE DESIGN DRAFTER [address] [place] [address] Nurse PractitionerFamily Medicine12/27/23Team MemberRelationshipSpecialtyStart DateEnd Date Dalia Morales MD [address] [place] [address] PCP - GeneralFamily Medicine12/27/23 Daina Manley DO [address] [facility] [address] [place] [address] PCP - Aetna10/25/21 Judith Massey NP [address] [place] [address] Nurse PractitionerFamily Medicine12/27/23Team MemberRelationshipSpecialtyStart DateEnd Date Dalia Morales MD [address] [place] [address] PCP - GeneralFamily Medicine12/27/23 Daina Manley DO [address] [facility] [address] [place] [address] PCP - Aetna10/25/21 Judith Massey NP [address] [place] [address] Nurse PractitionerFamily Medicine12/27/23Team MemberRelationshipSpecialtyStart DateEnd Date Dalia Morales MD [address] [place] [address] PCP - GeneralFamily Medicine12/27/23 Daina Manley, DO [address] [facility] [address] [place] [address] PCP - Aetna10/25/21 Judith Massey NP [address] [place] [address] Nurse PractitionerFamily Medicine12/27/23Team MemberRelationshipSpecialtyStart DateEnd Date Dalia Morales MD [address] [place] [address] PCP - GeneralFamily Medicine12/27/23 Daina Manley DO [address] [facility] [address] [place] [address] PCP - Aetna10/25/21 Judith Massey NP [address] [place] [address] Nurse PractitionerFamily Medicine12/27/23Team MemberRelationshipSpecialtyStart DateEnd Date Dalia Morales MD [address] [place] [address] PCP - GeneralFamily Medicine12/27/23 Daina Manley DO [address] [facility] [address] [place] [address] PCP - Aetna10/25/21 Judith Massey NP [address] [facility] [place] [address] Nurse PractitionerFamily Medicine12/27/23Team MemberRelationshipSpecialtyStart DateEnd Date Dalia Morales MD [address] [place] [facility] [address] PCP - GeneralFamily Medicine12/27/23 Daina Manley DO [address] [facility] [address] [place] [address] PCP - Trisha10/25/21 Judith Massey NP [address] [place] [address] Nurse PractitionerFamily Medicine12/27/23Team MemberRelationshipSpecialtyStart DateEnd Date Dalia Morales MD [address] [facility] [place] [address] PCP - GeneralFamily Medicine12/27/23 Daina Manley DO [address] [facility] [address] [place] [address] PCP - Trisha10/25/21 Judith Massey NP [address] [facility] [place] [address] Nurse PractitionerFamily Medicine12/27/23Te MemberRelationshipSpecialtyStart End Dalia Morales MD [address] [facility] [place] [address] PCP - GeneralFamily Medicine12/27/23 Daina Manley, DO [address] [facility] [address] [facility] [place] [phone] PCP - Aetna10/25/21 Judith Massey NP [address] [facility] [place] [address] Nurse PractitionerWinchendon Hospital Medicine12/27/23Te MemberRelationshipSpecialtyStart End Date Daina Manley, DO PCP - GeneralFamily Medicine Dalia Morales MD [address] [facility] [place] [address] PCP - GeneralFamily Medicine12/27/23 Daina Manley DO [address] [facility] [address] [place] [address] PCP - Trisha10/25/21 Judith Massey NP [address] [facility] [place] [address] Nurse PractitionerFamily Medicine12/27/23Te MemberRelationshipSpecialtyStart DateEnd Date Dalia Morales MD [address] [place] [facility] [place] [address] PCP - GeneralFamily Medicine12/27/23 Daina Manley DO [address] [facility] [address] [place] [address] PCP - Aetna10/25/21 Judith Massey AUTOMOTIVE DESIGN DRAFTER [address] [facility] [place] [address] Nurse PractitionerFamily Medicine12/27/23Team MemberRelationshipSpecialtyStart DateEnd Date Dalia Morales MD [address] [place] [address] PCP - GeneralFamily Medicine12/27/23 Daina Manley DO [address] [facility] [address] [place] [address] PCP - Aetna10/25/21 Judith Massey, AUTOMOTIVE DESIGN DRAFTER [address] [facility] [place] [address] Nurse PractitionerFamily Medicine12/27/23Team MemberRelationshipSpecialtyStart DateEnd Date Judith Massey, CLINICAL TRIALS MANAGER-CNC MACHINIST 2ND SHIFT [address] [place] [address] PCP - GeneralInternal Medicine06/20/24 REASON FOR VISIT (unrecogniz ed section and content) ReasonCommentsToenail CareReasonCommentsFollow-upNasal obstruction to be evaluatedReasonCommentsSinus ProblemStarted last . Head and nasal congestion. Started out having a runny nose, some night sweats. Ears feel full to him and eyes have been watery. Slight cough but not much. Has not tried anything OTC.ReasonCommentsMedicare Annual Wellness Visit SubsequentPt here for Medicare WellnessSuture / Staple RemovalRemoval of stitches from left hand. They were placed on 09/09 at [facility]. Cut his hand onsome metal.Reason CommentsHypertensionReasonCommentsFollow-upReasonCommentsNail Adwoa Rodriguez is a 73 y.o. male who presents for Nail Care.ReasonJeremy Rodriguez is a 74 y.o. male who presents for Nail care.ReasonCommentsURIReasonCommentsCough ReasonCommentsNew PatientNP REFERRAL JUDITH FITZPATRICKShortness of BreathOn exertionDizzinessMore lightheadednessReasonOnset DateCommentscardiac cath 4ReasonCommentsWound CheckS/P cath 08/09/24ReasonCommentsFollow-upEST PT F/U CATH DONE L/S MS SCHED W/ PTReasonCommentsToenail CarePt is here today for nail care, Rt hallux is starting to become painful for himSS: 12Reason CommentsMedicare Annual Wellness Visit SubsequentReasonJeremy Rodriguez is a 75 y.o. male who presents for Toenail Care .SS: 12ReasonCommentsNasal CongestionPt states been going on for a week in half. States yesterday he started getting body aches and fatigue. States he has been around ppl who had covid.Enmanuel Rodriguez is a 75 y.o. male who presents for Toenail Care .SS: 12ReasonCommentsFollow-upEnlarged Aorta FOR RECORDS PERTAINING TO PATIENTS WHO ARE OR HAVE BEEN ENROLLED IN A CHEMICAL DEPENDENCY/SUBSTANCEABUSE PROGRAM, SOME INFORMATION MAY BE OMITTED. This clinical summary was aggregated from multiple sources. Caution should be exercised in using it in the provision of clinical care. This summary normalizes information from multiple sources, and as a consequence, information in this document may materially change the coding, format and clinical context of patient data. In addition, data may be omitted in some cases. CLINICAL DECISIONS SHOULD BE BASED ON THE PRIMARY CLINICAL RECORDS. [facility]. provides no warranty or guarantee of the accuracy or completeness of information in this document.
--- NOTE | 2025-09-18 12:36 | XR_ITS ---
[place] [id number] Patient Name: ANGELIC RAMSEY MRN: [id number] date: 1950 Sex: M Assigned Patient Location: RAD Current Patient Location: [facility] Accession/Order Number: [id number] Exam Date: 09/18/2025 12:30 Report Date: 09/18/2025 20:11 At the request of: LUCIUS ZHENG MD Procedure: XR abdomen 1V KUB INDICATION: Kidney stones COMPARISON: 09/29/2023 FINDINGS: There is 6 mm calcification overlying the left kidney similar prior examination. No definite right-sided calculi. No definite calculi overlying the psoas muscles or within the region of the pelvis. Dextrocurvature lumbar spine. Left-sided pelvic phleboliths. Pbfb-[id number] stool burden. XR/XR abdomen 1V IMPRESSION: Stable left-sided calculus 6 mm in size. Impression dictated by: Jamal Odonnell M.D. 09/18/2025 8:11 PM Dictation Location: [place] [address] Electronically authenticated by: [id number] Y Date: 09/18/2025 20:11
== END 2025-09-18 12:16 | disposition home or self-care (01) ==
LOC: RAD 12:16
PROVIDERS: PCP Nurse Practitioner Family; Visit Provider Urology
DX: N20.0 Calculus of kidney (principal)
CPT/HCPCS: 74018